=== PATIENT | female | born 1995 | race Caucasian/White ===

== ENCOUNTER → 2017-06-22 12:31 | Outpatient (CLI) | payer OTHER, MEDICAID, SELFPAY ==
[2017-06-22 13:35] LABS: Absolute Lymphocyte Count 1.78 X10^3/ul (0.83-4.51); Absolute Neutrophil Count 7.5 X10^3/uL (2.0-7.7); Basophil# 0.04 X10^3/uL; Basophil% 0.4 % (0-1); Eosinophil# 0.13 X10^3/uL; Eosinophils% 1.3 % (0-5); Hematocrit 37.9 % (37-47); Hemoglobin 12.8 g/dl (12.0-15.0); Lymphocyte # 1.78 X10^3/ul (4.0); Lymphocyte % 17.3 % (19-41); Mean Corp Hgb Conc 33.8 g/gl (32-36); Mean Corpuscular Hgb 29.5 pg (27.0-32.0); Mean Corpuscular Volume 87.3 fL (81-99); Mean Platelet Vol. 9.9 fl (6.2-12.0); Monocyte# 0.79 X10^3/uL; Monocyte% 7.7 % (0-10); Neutrophil % 73.1 % (47-70); POSITIVE COUNT NO; POSITIVE DIFFERENTIAL NO; POSITIVE MORPHOLOGY NO; Platelet Count 246 K/mm3 (150-450); RBC Distribution Width CV 12.8 % (11.6-14.6); RBC Distribution Width SD 40.1 fl (35.1-43.9); Red Blood Count 4.34 M/mm3 (4.2-5.4); White Blood Count 10.3 K/mm3 (4.4-11.0)
[2017-06-23 09:47] LABS: HIV - WCH Non-Reactive (Nonreactive); Rubella IgG 24.4 IU/mL
[2017-06-23 11:06] LABS: HEPATITIS B SURFACE AG Negative (Negative)
[2017-06-25 01:09] LABS: Rapid Plasmin Reagin (RPR) NONREACTIVE (NONREACTIVE)
== END ==
PROVIDERS: Family Provider Family Medicine; PCP Family Medicine; Visit Provider Obstetrics & Gynecology
DX: Z34.90 Encounter for supervision of normal pregnancy, unspecified, unspecified trimester (principal); Z3A.00 Weeks of gestation of pregnancy not specified
CPT/HCPCS: 36415; 85025; 86592; 86703; 86762; 86850; 86900; 87070; 87205; 87340

== ENCOUNTER → 2017-07-28 14:23 | Outpatient (CLI) | payer OTHER, MEDICAID, SELFPAY | PROVIDERS: Visit Provider Obstetrics & Gynecology | DX: Z34.90 Encounter for supervision of normal pregnancy, unspecified, unspecified trimester (principal) | CPT/HCPCS: 87086; 87088 ==

== ENCOUNTER → 2017-08-26 12:19 | Outpatient (CLI) | payer OTHER, MEDICAID, SELFPAY ==
--- NOTE | 2017-08-26 12:21 | US_ITS ---
STUDY: SECOND AND THIRD TRIMESTER OBSTETRICAL ULTRASOUND REASON FOR EXAM: Female, 22 years old. Evaluate anatomy. LMP: Unknown. Patient provides estimated due date January 15, 2018. TECHNIQUE: Transabdominal PRIOR ULTRASOUND: None. FINDINGS: There is a single intrauterine fetus. The fetus is in a cephalic presentation. There is demonstrated cardiac activity with a heart rate of 149 bpm. There is a normal amniotic fluid volume. The largest amniotic fluid pocket measures 10.7 x 6.3 cm. The placenta is anterior in location and is not low lying. There are Grade 0 placental changes. The cervix measures 4.3 cm in length, and is closed. The bilateral adnexal regions are normal. BIOMETRY: BPD: 5.0 cm: 21 weeks, 1 days HC: 18.18 cm: 20 weeks, 5 days AC: 15.6 cm: 20 weeks, 6 days FL: 3.1 cm: 19 weeks, 5 days CI: 81% FL/BPD: 62% FL/AC: 20% HC/AC: 1.17 age by current US: 20 weeks, 5 days. SUJIT by current US: January 08, 2018. Estimated weight: 345 grams, +/- 50 grams, 79 %. Age by given SUJIT: 19 weeks, 5 days. Given SUJIT: January 15, 2018. ANATOMY: Cranium: Normal lateral ventricles. Normal choroid plexus. Normal cerebellum. Normal cisterna magna. Normal face, nose and lips. Chest: Normal 4-chamber heart. Abdomen/Pelvis: Normal diaphragm. Normal stomach. Normal abdominal wall. Normal cord insertion. Normal 3 vessel cord. Normal kidneys. Normal bladder. Spine: Normal cervical spine. Normal thoracic spine. Normal lumbar spine. Normal sacrum. Extremities: Normal bilateral upper extremities. Normal bilateral lower extremities. US/OB Anatomy Scan IMPRESSION: 1. Single living intrauterine fetus in cephalic presentation and estimated gestational age of 20 weeks, 5 days. Estimated date of delivery by today's study is January 08, 2018. 2. Unremarkable anatomic survey. 3. Estimated weight is 345 g. 4. The cervix is closed. Cervical length is 4.3 cm. 5. Grade 0 anterior placenta is not low-lying. 6. Visually unremarkable amniotic fluid volume. Electronically Signed: Franco Whelan MD at 12:38 EDT , Service support ,
== END ==
PROVIDERS: Visit Provider Obstetrics & Gynecology
DX: Z36.9 Encounter for antenatal screening, unspecified (principal)
CPT/HCPCS: 76805

== ENCOUNTER → 2017-10-19 16:03 | Outpatient (CLI) | payer MEDICAID, SELFPAY ==
[2017-10-19 17:26] LABS: Absolute Lymphocyte Count 1.64 X10^3/ul (0.83-4.51); Absolute Neutrophil Count 10.2 X10^3/uL (2.0-7.7); Basophil# 0.02 X10^3/uL; Basophil% 0.2 % (0-1); Eosinophil# 0.14 X10^3/uL; Eosinophils% 1.1 % (0-5); Hematocrit 32.4 % (37-47); Hemoglobin 10.6 g/dl (12.0-15.0); Lymphocyte # 1.64 X10^3/ul (4.0); Lymphocyte % 12.9 % (19-41); Mean Corp Hgb Conc 32.7 g/gl (32-36); Mean Corpuscular Hgb 28.7 pg (27.0-32.0); Mean Corpuscular Volume 87.8 fL (81-99); Mean Platelet Vol. 9.2 fl (6.2-12.0); Monocyte# 0.63 X10^3/uL; Neutrophil # 10.17 X10^3/uL (2.7-7.7); Neutrophil % 79.9 % (47-70); Platelet Count 224 K/mm3 (150-450); RBC Distribution Width CV 13.8 % (11.6-14.6); RBC Distribution Width SD 44.6 fl (35.1-43.9); Red Blood Count 3.69 M/mm3 (4.2-5.4); White Blood Count 12.7 K/mm3 (4.4-11.0)
[2017-10-19 17:30] LABS: POSITIVE COUNT NO; POSITIVE DIFFERENTIAL NO; POSITIVE MORPHOLOGY NO
[2017-10-19 17:35] LABS: Glucose Challenge Gest 1H 50g 141 mg/dL (70-140)
== END ==
PROVIDERS: Family Provider Family Medicine; PCP Family Medicine; Visit Provider Obstetrics & Gynecology
DX: Z34.90 Encounter for supervision of normal pregnancy, unspecified, unspecified trimester (principal); Z3A.00 Weeks of gestation of pregnancy not specified
CPT/HCPCS: 36415; 82950; 85025; 86850; 86900

== ENCOUNTER → 2017-10-27 07:41 | Outpatient (CLI) | payer MEDICAID, SELFPAY ==
[2017-10-27 08:39] LABS: Glucose GTT-Gestation. Fasting 74 mg/dL (<105)
[2017-10-27 09:55] LABS: Glucose GTT-Gestational 1 Hr 158 mg/dL (<190)
[2017-10-27 10:28] LABS: Glucose GTT-Gestational 2 Hr 109 mg/dL (<165)
[2017-10-27 11:19] LABS: Glucose GTT-Gestational 3 Hr 166 L (<145)
== END ==
PROVIDERS: Family Provider Family Medicine; PCP Family Medicine; Visit Provider Obstetrics & Gynecology
DX: R73.02 Impaired glucose tolerance (oral) (principal)
CPT/HCPCS: 36415; 82951; 82952

== ENCOUNTER 2017-11-25 14:30 | Outpatient (CLI) | payer MEDICAID, SELFPAY ==
[2017-11-25 14:48] VITALS: BMI 28.3
[2017-11-25 16:19] LABS: Hematocrit 34.7 % (37-47); Hemoglobin 11.3 g/dl (12.0-15.0); Mean Corp Hgb Conc 32.6 g/gl (32-36); Mean Corpuscular Hgb 28.1 pg (27.0-32.0); Mean Corpuscular Volume 86.3 fL (81-99); Mean Platelet Vol. 9.8 fl (6.2-12.0); Platelet Count 204 K/mm3 (150-450); RBC Distribution Width CV 13.5 % (11.6-14.6); RBC Distribution Width SD 41.4 fl (35.1-43.9); Red Blood Count 4.02 M/mm3 (4.2-5.4); White Blood Count 12.5 K/mm3 (4.4-11.0)
[2017-11-25 16:20] LABS: Scan Indicated on CBC? Y/N NO
[2017-11-25 16:25] LABS: International Normalized Ratio 0.9; Prothrombin Time (Protime)PT. 12.6 SECONDS (11.7-14.9)
[2017-11-25 16:26] LABS: Partial Thromboplast Time 25.1 Seconds (24.1-36.2)
[2017-11-25 16:33] LABS: AST(SGOT) 21 U/L (15-37); Alanine Aminotransfer ALT/SGPT 15 U/L (13-56); Creatinine, Serum 0.43 mg/dL (0.55-1.02); EST Glomerular Filtration Rate 195 mL/min (>60); Est Glom Filt Rate - Afr Amer 236 mL/min (>60); Estimated Creatinine Clearance 178.71 ml/min; Uric Acid 3.4 mg/dL (2.6-6.0)
[2017-11-25 16:56] LABS: Protein, Urine (Random) < 6.0 mg/dL (<11.9)
--- NOTE | 2017-11-26 05:48 | OB.TRI.NOTE ---
- Problem List (1) Headache Status: Acute (2) Elevated BP without diagnosis of hypertension Status: Acute History of Present Illness Date of Service: 11/25/17 Was patient seen by the physician?: No Reason For Visit: RO PRE ECLAMPSIA Date of Service: 11/25/17 Final SUJIT: 01/15/18 Gestational age: 32 Weeks and 6 Days History of Present Illness: elevated bp at home with headache presents for evaluation. Allergies No Known Allergies Allergy (Verified 11/17/17 15:35) - Pertinent Past Medical History Medical History: Past Medical History (Last Reviewed 11/17/17 @ 15:35 by Mila Chaidez) Abnormal Pap smear of cervix NST - FHR Rate Baby A Baseline: 140 Variability:: Moderate Accelerations:: 15 x 15 Decelerations:: None NST Reactive:: Yes FHR Category:: Category I Uterine Activity:: no regular Impression/Plan elevated bp at home but normal on l and d, normal labs and headache resolving. dc home preeclampsia precautions
== END 2017-11-25 17:30 | disposition home or self-care (01) ==
LOC: WPOUT 14:41 → WP 14:42
PROVIDERS: Family Provider Family Medicine; PCP Family Medicine; Visit Provider Obstetrics & Gynecology
DX: O26.893 Other specified pregnancy related conditions, third trimester (principal); R03.0 Elevated blood-pressure reading, without diagnosis of hypertension; R51 Headache
CPT/HCPCS: 36415; 59025; 59050; 82565; 82570; 84156; 84450; 84460; 84550; 85027; 85610; 85730; 99218; A4216; G0378

== ENCOUNTER → 2017-12-22 18:26 | Outpatient (CLI) | payer MEDICAID, SELFPAY ==
[2017-12-22 19:49] LABS: Group B Strep DNA By PCR Negative (Negative); Internal Control PASS; Probe Check PASS; Specimen Processing Control PASS
== END ==
PROVIDERS: Family Provider Family Medicine; PCP Family Medicine; Visit Provider Obstetrics & Gynecology
DX: Z34.90 Encounter for supervision of normal pregnancy, unspecified, unspecified trimester (principal)
CPT/HCPCS: 87081; 87653

== ENCOUNTER → 2017-12-30 18:14 | Outpatient (CLI) | payer MEDICAID, SELFPAY ==
[2017-12-30 18:43] LABS: Protein, Urine (Random) 141.5 mg/dL (<11.9); Protein:Creat Ratio 687 mg/g CRE (0-200)
== END ==
PROVIDERS: Visit Provider Obstetrics & Gynecology
DX: R80.9 Proteinuria, unspecified (principal)
CPT/HCPCS: 82570; 84156

== ENCOUNTER 2017-12-31 13:45 | Inpatient (IN) | payer MEDICAID, SELFPAY ==
[2017-12-31 12:57] VITALS: BMI 30.6
[2017-12-31 13:24] LABS: Color, Urine Yellow (Yellow); Glucose, Dipstick Normal (Normal); Ketone-Dipstick Negative (Negative); Leukocyte Esterase-Dipstick 100 /ul (Negative); Nitrite-Dipstick Negative (Negative); Occult Blood-Urine 10 /ul (Negative); Protein-Dipstick 100 mg/dl (Negative); Urine Bilirubin Dipstick Negative (Negative); Urine Clarity Sl. Cloudy (Clear); Urine Urobilinogen Normal (Normal); Urine pH 6.5 (5.0 - 8.0)
[2017-12-31 13:25] LABS: Hematocrit 33.9 % (37-47); Hemoglobin 10.9 g/dl (12.0-15.0); Mean Corp Hgb Conc 32.2 g/gl (32-36); Mean Corpuscular Hgb 26.7 pg (27.0-32.0); Mean Corpuscular Volume 83.1 fL (81-99); Mean Platelet Vol. 10.5 fl (6.2-12.0); Platelet Count 210 K/mm3 (150-450); RBC Distribution Width CV 14.4 % (11.6-14.6); RBC Distribution Width SD 43.5 fl (35.1-43.9); Red Blood Count 4.08 M/mm3 (4.2-5.4); White Blood Count 10.3 K/mm3 (4.4-11.0)
[2017-12-31 13:29] LABS: Scan Indicated on CBC? Y/N NO
[2017-12-31 13:32] LABS: International Normalized Ratio 0.9; Prothrombin Time (Protime)PT. 12.1 SECONDS (11.7-14.9)
[2017-12-31 13:42] LABS: AST(SGOT) 17 U/L (15-37); Alanine Aminotransfer ALT/SGPT 17 U/L (13-56); Creatinine, Serum 0.57 mg/dL (0.55-1.02); EST Glomerular Filtration Rate 140 mL/min (>60); Est Glom Filt Rate - Afr Amer 170 mL/min (>60); Estimated Creatinine Clearance 134.82 ml/min; Uric Acid 4.8 mg/dL (2.6-6.0)
[2017-12-31] MEDS: Lactated Ringers 1,000 ML 50 ML IV (14:30)
[2017-12-31] MEDS: 0.9% Saline Lock 10 ML Syringe IV (14:31)
[2017-12-31] MEDS: miSOPROStol 25 MCG TABLET PO ×3 (14:35→23:36)
[2017-12-31] MEDS: Acetaminophen 325 MG Tablet PO (23:36)
[2018-01-01] MEDS: miSOPROStol 25 MCG TABLET PO ×3 (03:13→11:38)
[2018-01-01] MEDS: Acetaminophen 325 MG Tablet PO (05:01)
[2018-01-01] MEDS: Lactated Ringers 1,000 ML 50 ML IV ×2 (09:34→19:40)
[2018-01-01] MEDS: Oxytocin 30 units/NS 500 ml 30 UNITS/500 ML IV.SOLN IV (15:46)
--- NOTE | 2018-01-01 20:38 | HP.PCM_ITS ---
- Problem List (1) Preeclampsia Status: Acute (2) Status: Acute Qualifiers: (3) Anemia affecting in second trimester Status: Acute Comment: Repeat 4 weeks-taking FE (4) Abnormal glucose tolerance in Status: Acute Comment: Normal 3 hr GTT (5) Anxiety Status: Acute Comment: no meds at present. (6) Supervision of normal Status: Acute Qualifiers: Comment: PRR SUJIT 01/15/18 boy Reid boyfriend Syd History Date of Admission: 12/31/17 Final SUJIT: 01/15/18 Gestational age: 38 Weeks and 0 Days History of this : This is a 22 year-old, , at 37 weeks gestational age for IOL secondary to preeclampsia. she denies any GARNER BV but admits elevated bps and proteinuria. Medical History: Medical History (Last Reviewed 12/30/17 @ 14:04 by Sharmin Del Real) Abnormal Pap smear of cervix R87.619 Allergies No Known Allergies Allergy (Verified 12/31/17 12:56) Home Medications: Home Medications vitamin,calcium,qzcbfpuu-stum-gzsjb acid tablet 1 tab PO QDAY 06/22/17 Smoking Status: Never smoker Alcohol: None Number of Fetus(es): 1 Heart Tracin moderate variability reactive no decels TOCO Analysis: none History Past Pregnancies: Past Pregnancies Delivery Date Name GA/Weeks Outcome Route Weight Infant Gender Labor Length Anesthesia Delivery Location Provider FOB Labs: [facility] Microbiology 12/31/17 13:05 Urine, Clean Catch Urine Culture - Preliminary Mixed Gram Positive Organisms [facility] Labs & Results 12/31/17 12/31/17 12/31/17 13:05 13:05 13:05 WBC 10.3 RBC 4.08 L Hgb 10.9 L Hct 33.9 L MCV 83.1 MCH 26.7 L MCHC 32.2 RDW 14.4 RDW Differential 43.5 Plt Count 210 MPV 10.5 PT 12.1 INR 0.9 APTT 24.0 L Creatinine 0.57 Estim Creat Clear Calc 134.82 Est GFR (MDRD) Af Amer 170 Est GFR (MDRD) Non-Af 140 Uric Acid 4.8 AST 17 ALT 17 Urine Color Urine Clarity Urine pH Ur Specific Dulce Urine Protein Urine Glucose (UA) Urine Ketones Urine Occult Blood Urine Nitrite Urine Bilirubin Urine Urobilinogen Ur Leukocyte Esterase Blood Type Antibody Screen 12/31/17 12/31/17 13:05 13:05 WBC RBC Hgb Hct MCV MCH MCHC RDW RDW Differential Plt Count MPV PT INR APTT Creatinine Estim Creat Clear Calc Est GFR (MDRD) Af Amer Est GFR (MDRD) Non-Af Uric Acid AST ALT Urine Color Yellow Urine Clarity Sl. Cloudy Urine pH 6.5 Ur Specific Dulce 1.010 Urine Protein 100 H Urine Glucose (UA) Normal Urine Ketones Negative Urine Occult Blood 10 H Urine Nitrite Negative Urine Bilirubin Negative Urine Urobilinogen Normal Ur Leukocyte Esterase 100 H Blood Type A POSITIVE Antibody Screen NEGATIVE Course Did the patient receive Yes care? Labs Blood Type: A RH: POSITIVE RPR/VDRL/Syphilis Nonreactive Rubella status Immune HbSAg Negative Date Done: 06/22/17 Chlamydia Negative Gonorrhea Negative HIV/AIDS Non-Reactive Group B Strep: Negative Current Obstetrical History Gestational Diabetes No Incompetent Cervix No Infertility No IUGR No Macrosomia No Hypertension/Pre-eclampsia Yes Placenta Previa/Abruption No PTL/PROM No Uterine anomaly No Oligohydramnios No Polyhydramnios No Multiple gestation No Past Medical History Asthma No Diabetes No Hypertension No Heart disease No Mitral valve prolapse No Neurologic/Seizure disorder/ No Migraines Kidney disease No Liver disease No Varicosities No Clotting disorders/Hx of DVT No Thyroid Dysfunction No Other medical diseases No Psychiatric disorders No Major trauma No Abnormal PAP smear Yes Sleep apnea No Mammogram in the last 2 years No Social History Marital Status: SINGLE Alleged father Syd Hx Smoking No Smoking Status Never smoker Expected Delivery Method: Spontaneous Vaginal Review of Systems Constitutional: Denies: Fever, Malaise Eyes: Denies: Blurred vision, Vision Change HEENT: Denies: Head Aches, Visual Changes Cardiovascular: Denies: Chest Pain, Palpitations Respiratory: Denies: Cough, Shortness of Breath, Wheezing Gastrointestinal: Denies: Abdominal Pain, Diarrhea, Nausea, Vomiting Genitourinary: Denies: Dysuria, Hematuria Musculoskeletal: Denies: Joint Pain, Muscle pain Skin: Denies: Lesions, Rash Neurological: Denies: Blurred vision, Focal weakness, Headaches Psychiatric: Denies: Anxiety, Depression Endocrine: Denies: Heat/ Cold Intolerance Hematologic/ Lymphatic: Denies: Easy Bruising, Easy Bleeding Physical Exam General: Alert, Cooperative, No apparent distress HEENT: Atraumatic, Normocephalic. Negative for: Thyromegaly, Lymphadenopathy Cardiovascular: Regular rate Lungs: Normal air movement Abdomen: Soft, Non Tender, Gravid Neurological: Deep Tendon Reflexes 2+/4 and Symmetrical, Neuro grossly intact. Negative for: Clonus [employer]ER: Normal external genitalia. Negative for: Vulvar lesions Estimated gestational size: Appropriate for gestational size Presentation: Cephalic Assessment/Plan All Active Problems (Last Reviewed 12/30/17 @ 14:04 by Sharmin Del Real) Preeclampsia (Acute) Proteinuria affecting (Acute) (Acute) Anemia affecting in second trimester (Acute) Abnormal glucose tolerance in (Acute) Anxiety (Acute) Supervision of normal (Acute) Elevated BP without diagnosis of hypertension (Resolved) Headache (Resolved) This is a 22 year-old, at 37 weeks gestational age IOL preeclampsia Patient presents IOL, plan cytotec management for , pitocin. Pain management: plans epidural. GBS neg. Management of any complications: preeclampsia I have reviewed the [facility] and made any clinically relevant updates.
--- NOTE | 2018-01-01 20:38 | PCM.PN.BLA ---
Progress Note fht 140s moderate variability reactive early decels toco q 2-3. pit IOL s/p 6 doses cytotec, srom clear fluid. bps mildly elevated. s/p epi
[2018-01-01] MEDS: hydrOXYzine PAM 25 MG Capsule 50 MG PO (21:19)
[2018-01-01] MEDS: fentaNYL-bupivacaine (epidural) 100 ML BAG EPIDURAL (21:47)
[2018-01-02] MEDS: Lactated Ringers 1,000 ML 50 ML IV ×2 (00:21→05:24)
--- NOTE | 2018-01-02 06:00 | NURSING ---
Patient had three epidural placed at different times due to inability to get comfortable. Patient c/o vaginal /rectal pain and pressure. Final epidural placed was effective with pain control
[2018-01-02] MEDS: Oxytocin 30 units/NS 500 ml 30 UNITS/500 ML IV.SOLN 334 UNITS IV (07:56)
[2018-01-02] MEDS: Acetaminophen 325 MG Tablet PO (08:31)
[2018-01-02] MEDS: Oxytocin 30 units/NS 500 ml 30 UNITS/500 ML IV.SOLN 167 UNITS IV (08:36)
--- NOTE | 2018-01-02 08:53 | PCM.OB.VAG ---
- Problem List (1) Preeclampsia Status: Acute (2) Status: Acute Qualifiers: (3) Anemia affecting in second trimester Status: Acute Comment: Repeat 4 weeks-taking FE (4) Abnormal glucose tolerance in Status: Acute Comment: Normal 3 hr GTT (5) Anxiety Status: Acute Comment: no meds at present. (6) Supervision of normal Status: Acute Qualifiers: Comment: PRR SUJIT 01/15/18 boy Reid boyfriend Syd Vaginal Delivery Maternal Presentation: Medically Indicated Induction 22-year-old at 38 weeks presents for induction of labor secondary to preeclampsia with mild features Method of Induction: Pitocin, Cytotec Medical Reason for Induction: Preeclampsia, eclampsia Amniotic Membrane Rupture Type: Spontaneous Amniotic Fluid Description: Clear Final SUJIT: 01/15/18 Gestational age: 38 Weeks and 1 Days Surgery/ Procedure Performed: Spontaneous Vaginal Delivery Type of Anesthesia: Epidural Description of Procedure: Patient began pushing and delivered the head in the LIONEL presentation. The head was delivered atraumatically loose nuchal cord ?1 was identified and easily reduced over the 's head. The anterior and posterior shoulders delivered without complication followed by the rest of the infant and the was placed on the maternal abdomen. Delayed cord clamping was employed for approximately 60 seconds. Cord was clamped and cut and gentle traction was applied to the cord and the placenta delivered spontaneously immediately following it was noted to be intact with three-vessel cord. The perineum and vagina were inspected and noted to have a small second-degree perineal laceration that was repaired in the usual fashion with 3-0 Vicryl repeat. EBL was 600 cc with mild atony that was remedied with bimanual massage and routine Pitocin. Patient and tolerated delivery well. Presentation: LIONEL Placental Delivery Description: Spontaneous Placenta Disposition: [facility] Cord Vessel Description: 3 Vessels Cord Entanglement: Around neck x 1, loose Estimated Blood Loss: 600 Infant A gender: Male Episiotomy Description: None Laceration: Perineal Extension/lac, 2nd degree Medications given after delivery: IV Pitocin Complications: None
[2018-01-02] MEDS: Naproxen 250 MG Tablet PO ×2 (09:33→18:40)
[2018-01-02 09:43] VITALS: BP 132/77; PULSE 105; RESP 18; TEMP 36.8
[2018-01-02 12:52] VITALS: BP 107/56; PULSE 92; RESP 16; TEMP 36.7
[2018-01-02] MEDS: Prenatal Vits Tablet 1 TABLET PO (13:00)
[2018-01-02] MEDS: Acetaminophen 500 MG Tablet 1000 MG PO ×2 (15:05→23:34)
[2018-01-02 16:14] VITALS: BP 125/72; PULSE 99; RESP 16; TEMP 36.8
[2018-01-02 19:40] VITALS: BP 130/86; PULSE 92; RESP 18; TEMP 36.9
[2018-01-02 23:30] VITALS: BP 98/50; PULSE 100; RESP 16; TEMP 36.7
[2018-01-03] MEDS: Naproxen 250 MG Tablet PO ×3 (02:31→18:37)
[2018-01-03 07:49] VITALS: BP 126/70; PULSE 97; RESP 16; TEMP 36.7; O2SAT 97
[2018-01-03] MEDS: Acetaminophen 500 MG Tablet 1000 MG PO ×2 (07:49→20:29)
--- NOTE | 2018-01-03 07:57 | PCM.PN.OB ---
Patient Problems: Active and Suspected Problems (Last Reviewed 12/30/17 @ 14:04 by Sharmin Del Real) Preeclampsia (Acute) Subjective: No CP, SOB. Doing well. BP currently WNL last 12 hrs. - Physical Exam General: Alert, Oriented x3 Abdomen: Soft, Non Tender, - - FF below U Vital Signs Temp Pulse Resp BP 98.1 F 100 16 98/50 L 01/02/18 23:30 01/02/18 23:30 01/02/18 23:30 01/02/18 23:30 Oxygen Delivery Method Room Air Weight: 178 lb 5.663 oz Body Mass Index (BMI) 30.6 Intake and Output for Last 24 Hours 01/01/18 01/02/18 01/03/18 23:59 23:59 23:59 Intake Total 900 / 900 1140 / 1140 Output Total 200 / 200 2500 / 2500 Balance 700 / 700 -1360 / -1360 Microbiology Past 72 Hours 12/31/17 13:05 Urine Culture - Final Urine, Clean Catch Mixed Gram Positive Organisms Medical Necessity - Tobacco Use Smoking Status: Never smoker Assessment/Plan All Active Problems (Last Reviewed 12/30/17 @ 14:04 by Sharmin Del Real) Preeclampsia (Acute) Proteinuria affecting (Acute) (Acute) Anemia affecting in second trimester (Acute) Abnormal glucose tolerance in (Acute) Anxiety (Acute) Supervision of normal (Acute) Elevated BP without diagnosis of hypertension (Resolved) Headache (Resolved) PPD #1 BPs well controlled. Routine care. Continue monitor BP and treat as needed. .
[2018-01-03] MEDS: Prenatal Vits Tablet 1 TABLET PO (08:48)
--- NOTE | 2018-01-03 13:13 | NURSING ---
Pt. called out to RN to report she feels like she has incontinence when she gets into the restroom. This morning pt. was advised to do Kegel exercises. Rosa Brewer CNP, is aware of this concern and told pt. to report if it continues.
[2018-01-03 13:40] VITALS: BP 118/74; PULSE 78; RESP 17; TEMP 36.8; O2SAT 95
[2018-01-03 20:20] VITALS: BP 125/85; PULSE 82; RESP 16; TEMP 36.6; O2SAT 98
[2018-01-04 02:40] VITALS: BP 133/72; PULSE 86; RESP 16; TEMP 37.2; O2SAT 95
[2018-01-04] MEDS: Naproxen 250 MG Tablet PO (02:45)
--- NOTE | 2018-01-04 07:44 | PCM.PN.OB ---
Patient Problems: Active and Suspected Problems (Last Reviewed 12/30/17 @ 14:04 by Sharmin Del Real) Preeclampsia (Acute) Subjective: NO CP, SOB. doing well. Requesting stool softener. Pain controlled with OTC meds - Physical Exam General: Alert, Oriented x3 Abdomen: Soft, Non Tender, - - FF below U Vital Signs Temp Pulse Resp BP Pulse Ox 98.9 F 86 16 133/72 H 95 01/04/18 02:40 01/04/18 02:40 01/04/18 02:40 01/04/18 02:40 01/04/18 02:40 Oxygen Delivery Method Room Air Weight: 178 lb 5.663 oz Body Mass Index (BMI) 30.6 Intake and Output for Last 24 Hours 01/02/18 01/03/18 01/04/18 23:59 23:59 23:59 Intake Total 1140 / 1140 Output Total 2500 / 2500 Balance -1360 / -1360 Microbiology Past 72 Hours 12/31/17 13:05 Urine Culture - Final Urine, Clean Catch Mixed Gram Positive Organisms Medical Necessity - Tobacco Use Smoking Status: Never smoker Assessment/Plan All Active Problems (Last Reviewed 12/30/17 @ 14:04 by Sharmin Del Real) Preeclampsia (Acute) Proteinuria affecting (Acute) (Acute) Anemia affecting in second trimester (Acute) Abnormal glucose tolerance in (Acute) Anxiety (Acute) Supervision of normal (Acute) Elevated BP without diagnosis of hypertension (Resolved) Headache (Resolved) PPD #2 BPs controlled. OTC pain med and stool softener prn. Plans condoms for contraception. PP visit 6 weeks
--- NOTE | 2018-01-04 07:47 | DCINST_ITS ---
Additional Instructions: If you experience any of the following, contact your healthcare provider. * Bleeding that soaks a pad every hour for 2 hours * Fever 100.4 or higher * Unrelieved incision or abdominal pain * Swelling, redness, discharge or bleeding from your incision or episiotomy site * Your incision begins to separate * Problems urinating (including inability to urinate or burning while urinating) . * Visual changes * Severe headache * Flu-like symptoms * Pain or redness in one of both of your breasts * Pain, warmth, tenderness or swelling in your legs, especially the calf area * Frequent nausea and vomiting * Symptoms of depression or anxiety If you experience any of the following, call 911 or go to the nearest Emergency Room. * Chest pain * Problems breathing * Seizure activity * Partial or complete paralysis of a body part, slurred speech, weakness or drooping of the face, or a sudden inability to walk or hold your balance Allergies/Adverse Reactions: Allergies No Known Allergies Allergy (Verified 12/31/17 12:56) Medications to take at Discharge vitamin,calcium,likhiads-jiax-lflmp acid tablet 1 tab PO QDAY 06/22/17 Primary Care Physician: Lindsey Drake PA-C [Primary Care Provider] - Test Results: Test results from this visit will be discussed in further detail at your follow- up appointment, if applicable.
--- NOTE | 2018-01-04 07:47 | PCM.DCVAG ---
Additional Instructions: If you experience any of the following, contact your healthcare provider. Bleeding that soaks a pad every hour for 2 hours Fever 100.4 or higher Unrelieved incision or abdominal pain Swelling, redness, discharge or bleeding from your incision or episiotomy site Your incision begins to separate Problems urinating (including inability to urinate or burning while urinating). Visual changes Severe headache Flu-like symptoms Pain or redness in one of both of your breasts Pain, warmth, tenderness or swelling in your legs, especially the calf area Frequent nausea and vomiting Symptoms of depression or anxiety If you experience any of the following, call 911 or go to the nearest Emergency Room. Chest pain Problems breathing Seizure activity Partial or complete paralysis of a body part, slurred speech, weakness or drooping of the face, or a sudden inability to walk or hold your balance Allergies/Adverse Reactions: Allergies No Known Allergies Allergy (Verified 12/31/17 12:56) Medications to take at Discharge vitamin,calcium,qtrgkfll-soom-yqbos acid tablet 1 tab PO QDAY 06/22/17 Primary Care Physician: Lindsey Drake PA-C [Primary Care Provider] - Test Results: Test results from this visit will be discussed in further detail at your follow-up appointment, if applicable.
[2018-01-04 08:45] VITALS: BP 135/79; PULSE 88; RESP 16; TEMP 36.9
[2018-01-04] MEDS: Senna/Docusate Sodium 1 Tablet PO (08:59)
[2018-01-04] MEDS: Prenatal Vits Tablet 1 TABLET PO (08:59)
[2018-01-04] MEDS: Acetaminophen 500 MG Tablet 1000 MG PO (09:06)
== END 2018-01-04 09:50 | disposition home or self-care (01) | DRG 372 ==
LOC: WPOUT 13:50 → WP 13:52
PROVIDERS: Admitting Provider Obstetrics & Gynecology; Family Provider Family Medicine; PCP Family Medicine; Visit Provider Obstetrics & Gynecology
DX: O14.04 Mild to moderate pre-eclampsia, complicating childbirth (principal); O99.02 Anemia complicating childbirth; O70.1 Second degree perineal laceration during delivery; O75.89 Other specified complications of labor and delivery; O69.81X0 Labor and delivery complicated by cord around neck, without compression, not applicable or unspecified; Z3A.38 38 weeks gestation of pregnancy; Z37.0 Single live birth
CPT/HCPCS: 59025; 59050; 81002; 82565; 84450; 84460; 84550; 85027; 85610; 85730; 86850; 86900; 87086; 87088; 99218; J7120; A4216; G0378

== ENCOUNTER → 2018-02-14 20:28 | Outpatient (CLI) | payer MEDICAID, SELFPAY ==
[2018-02-21 13:41] LABS: HPV Reflexed? NOT INDICATED
== END ==
PROVIDERS: Family Provider Family Medicine; PCP Family Medicine; Referring Provider Obstetrics & Gynecology; Visit Provider Obstetrics & Gynecology
DX: Z12.4 Encounter for screening for malignant neoplasm of cervix (principal)
CPT/HCPCS: 87624; 88175; G0145

== ENCOUNTER → 2018-07-26 12:12 | Outpatient (CLI) | payer MEDICAID, SELFPAY ==
[2018-04-08 11:00] VITALS: BMI 24.6
--- NOTE | 2018-07-26 12:16 | US_ITS ---
STUDY: ULTRASOUND BREAST - RIGHT REASON FOR EXAM: Female, 23 years old. Pain in the right breast. TECHNIQUE: Axial and longitudinal images of the RIGHT breast were performed with a high resolution ultrasound transducer. COMPARISON: None. FINDINGS: RIGHT Breast: The entire breast was examined by ultrasound. There is homogeneous fibroglandular tissue. No sonographic abnormality is seen. IMPRESSION: Unremarkable sonographic examination. ASSESSMENT CATEGORY: BIRADS Category 1: Negative. A letter regarding these results will be sent to the patient by the facility within 30 days. Electronically Signed: Nikko Harris, at 12:55 EDT , Service support , STUDY: ULTRASOUND BREAST - LEFT REASON FOR EXAM: Female, 23 years old. Palpable lump left breast. TECHNIQUE: Axial and longitudinal images of the LEFT breast were performed with a high resolution ultrasound transducer. COMPARISON: None. FINDINGS: LEFT Breast: The entire left breast was examined by ultrasound. There is homogeneous fibroglandular tissue. No sonographic abnormality is seen. US/Breast Complete Bilateral IMPRESSION: Unremarkable sonographic examination of the breast. ASSESSMENT CATEGORY: BIRADS Category 1: Negative. A letter regarding these results will be sent to the patient by the facility within 30 days. Electronically Signed: Nikko Harris, at 12:56 EDT , Service support ,
== END ==
PROVIDERS: Family Provider Family Medicine; PCP Family Medicine; Referring Provider Family Medicine; Visit Provider Family Medicine
DX: N63.0 Unspecified lump in unspecified breast (principal)
CPT/HCPCS: 76641

== ENCOUNTER → 2018-08-31 17:08 | Outpatient (CLI) | payer MEDICAID, SELFPAY ==
--- NOTE | 2018-08-31 | IMM_PTH ---
PATIENT: BEAU HAMILTON LOC: [facility] U#:[id number] AGE/SX: 30/F ROOM: RE08/31/[address]: Dr. Mirella Lamar MD : 1995 BED: DIS: SPEC #: [id number] RECD: 09/02/18 10:20 STATUS: ETIENNE REQ #: [id number] MARCY: 08/31/18 00:[address]: Mirella Lamar DEPT: IMMUNOHISTOCHEMISTRY RECD BY: Risa Winkler ENTERED: 09/02/18 10:21 SP TYPE: IMMUNO OTHR DR: Lindsey Drake PA-C Tissues: B - Uterine cervix, NOS Procedures: p16 (initial) KI-67 (add) PHYSICIAN & INSTITUTION [place] [id number] SPECIMEN INFORMATION: Tissue Source: B - Cervix at 6 o'clock, biopsy Clinical Info: HGSIL Specimen Number: [id number] CPT code: 32442, 04116 METHODOLOGY: Deparaffinized sections of prefer/formalin-fixed tissue or PAP/DQ stained slides are incubated with monoclonal/polyclonal antibodies/oligonucleotide probes. Localization is made via biotin free immunoperoxidase method. Appropriate controls are performed and reacted as expected. Results on target cell population are indicated in the following table: RESULTS: ANTIBODY / CLONE RESULT Block B P16 (E6H4) positive, rare cells Ki-67 (30-9) positive, rare cells These tests were developed and their performance characteristics determined by [facility]. They may not have been cleared or approved by the U.S. Food and Drug Administration. The FDA has determined that such clearance or approval is not necessary. INTERPRETATION: B. Cervix at 6 o'clock, biopsy: Suspicious for focal HPV change. AM:lito 09/05/18
--- NOTE | 2018-08-31 | CER_PTH ---
PATIENT: BEAU HAMILTON LOC: [facility]#:[id number] AGE/SX: 30/F ROOM: RE08/31/[address]: Dr. Mirella Lamar MD : 1995 BED: DIS: SPEC #: [id number] RECD: 08/31/18 17:08 STATUS: ETIENNE DARIO #: [id number] MARCY: 08/31/18 00:[address]: Mirella Lamar DEPT: SURGICAL PATHOLOGY RECD BY: Kaden Rogers ENTERED: 09/01/18 10:51 SP TYPE: CERV OTHR DR: Lindsey Drake PA-C Tissues: A - Endocervical B - Uterine cervix, NOS Procedures: Surgery Specimen Level IV HEADER OPERATION: Colposcopy PRE-OP DIAGNOSIS: HGSIL TISSUE SUBMITTED: A - ECC, B - 6 o'clock MICROSCOPIC DIAGNOSIS A. Endocervix, curettings: Rare strips of benign superficial endocervix. Detached fragments of benign squamous mucosa. B. Cervix at 6 o'clock, biopsy: Focal HPV change suspected. Chronic inflammation and squamous metaplasia. AM:lito 09/02/18 COMMENT Results from immunohistochemistry ([id number]) for surrogate HPV marker (p16) will be reported separately. MICROSCOPIC DESCRIPTION Slides are reviewed. GROSS DESCRIPTION A - Received in fixative is one container labeled with the patient's name and designated ECC. The specimen consists of light mayfield clear fluid (approximately 20 ml inclusive of fixative). The specimen is submitted for cell block preparation. B - Received in fixative is one container labeled with the patient's name and designated 6 o'clock. The specimen consists of one irregular fragment of light mayfield soft tissue that measures 0.3 x 0.2 x 0.1 cm. The specimen is totally submitted in one cassette. / AM:lito 09/01/18 TC:3 CPT: 53018 x2
[2018-08-31 14:41] VITALS: BMI 24.6
== END ==
PROVIDERS: Family Provider Family Medicine; PCP Family Medicine; Referring Provider Obstetrics & Gynecology; Visit Provider Obstetrics & Gynecology
DX: R87.613 High grade squamous intraepithelial lesion on cytologic smear of cervix (HGSIL) (principal)
CPT/HCPCS: 88305; 88341; 88342

== ENCOUNTER 2018-09-15 09:26 | Day surgery (SDC) | payer MEDICAID, SELFPAY ==
[2018-08-31 14:41] VITALS: BMI 24.6
--- NOTE | 2018-09-13 20:30 | HP.PCM_ITS ---
- Problem List (1) Anxiety Status: Acute Comment: zoloft (2) HGSIL (high grade squamous intraepithelial lesion) on Pap smear of cervix Status: Acute Comment: needs LEEP (3) Low grade squamous intraepithelial lesion (LGSIL) Status: Acute Comment: Needs repeat pap in 1 year 02/2019 History and Physical Date of Admission: 09/15/18 Vital Signs 08/31/18 Height 5 ft 3.5 in 08/31/18 Weight: 141 lb 6 oz 08/31/18 Body Mass Index (BMI) 24.6 08/31/18 Blood Pressure 136/86 H Intake Visit Reasons: COLP? - HIGH GRADE ABNORMAL FROM [employer] Required: No Is patient in pain?: No Allergies No Known Allergies Allergy (Verified 08/31/18 14:43) Is last menstrual period known: Yes Last Menstral Period: 08/21/18 Post menopausal: No Patient : No PFSH PFSH Medical History Abnormal Pap smear of cervix (Acute) Family History Sister Antiphospholipid antibody syndrome Mother Diabetes Other Hypertension Social History Smoking Status: Never smoker second hand exposure: No alcohol intake: never substance use type: does not use caffeine: No what type of physical activity do you participate in: walking frequency: daily seatbelt use: always do you feel safe at home: Yes additional social history: Engaged (getting in October)- Syd Pregancy History 1 Elective abortions Hx Para 1 Spontaneous abortions Hx # Term Pregnancies 1 Ectopic pregnancies Hx # Pregnancies Multiple births # of living children 1 Past Pregnancies Del. Date Name GA/Weeks Outcome Route Bth Weight Gen Labor Lgth Anesthesia Del Locatn Provider FOB 01/02/18 Reid 38 live - full term Male epidural WC [facility] Delivery Date: 01/02/18 On 01/12/18 @ 09:05 Layne Joseph PreEclampsia HPI COLP? - HIGH GRADE ABNORMAL FROM [employer] [facility]: Details: BEAU LARSON is a 23 year old who presents for HGSIL. she has had 2 lgsil paps. she denies any abnormal bleeding. she had her mirena removed and is getting in october and wanting to conceive in 6 months Female Reproductive History Last Menstral Period: 08/21/18 Control Method: condoms Questions: Metorrhagia: No, Sexually active: Yes ROS Const Constitutional: Reports system reviewed and no additional complaints, except as docu; denies chills, fever(s), weight gain or weight loss GI GI: Reports as per HPI; denies abdominal pain, bloating, constipation, cramping, nausea or vomiting : Reports as per HPI; denies urinary frequency, urinary incontinence, urinary urgency, vaginal discharge or vaginal dryness Exam Const General: cooperative, healthy appearing, comfortable, well developed Orientation: alert [facility] Head: normal to inspection Resp Effort & Inspection: normal respiratory effort GI Inspection: normal to inspection, non-distended Palpation: soft, no hepatosplenomegaly, no guarding External Female Exam: normal external appearance, normal appearance of the urethra Urethra: normal appearance of the urethra Speculum Exam - Vagina: normal appearance of the vagina, normal vaginal discharge, no lesions Speculum Exam - Cervix: nontender Bimanual Exam- Vagina & Uterus: normal bimanual exam, uterine size normal, uterine shape normal, No cervical tenderness, uterine mobility normal, uterine consistency normal, uterus non-tender Bimanual Exam- Adnexa, other: normal adnexae, no adnexal masses Results [id number] Office , Urine Negative Last Edit by Mila Chaidez on 08/31/18 15:09 Assessment & Plan Problems 1. 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 Mirella Lamar MD
--- NOTE | 2018-09-15 | IMM_PTH ---
PATIENT: BEAU HAMILTON LOC: [facility] [place] U#:[id number] AGE/SX: 23/F ROOM: RE09/15/[address]: Dr. Mirella Lamar MD : 1995 BED: DIS: 09/15/2018 SPEC #: [id number] RECD: 09/16/18 13:34 STATUS: ETIENNE REQ #: [id number] MARCY: 09/15/18 00:[address]: Mirella Lamar DEPT: IMMUNOHISTOCHEMISTRY RECD BY: Risa Winkler ENTERED: 09/16/18 13:36 SP TYPE: IMMUNO OTHR DR: Lindsey Drake PA-C Tissues: A - Uterine cervix, NOS Procedures: p16 (initial) KI-67 (add) P16 (add) PHYSICIAN & INSTITUTION [place] [id number] SPECIMEN INFORMATION: Tissue Source: A - Uterine cervix Clinical Info: CORY III with severe dysplasia Specimen Number: [id number] A1-A3 CPT code: 81462, 60415 x5 METHODOLOGY: Deparaffinized sections of prefer/formalin-fixed tissue or PAP/DQ stained slides are incubated with monoclonal/polyclonal antibodies/oligonucleotide probes. Localization is made via biotin free immunoperoxidase method. Appropriate controls are performed and reacted as expected. Results on target cell population are indicated in the following table: RESULTS: ANTIBODY / CLONE RESULT Block A1 P16 (E6H4) positive, focal, patchy Ki-67 (30-9) positive, low Block A2 P16 (E6H4) positive, focal, patchy Ki-67 (30-9) positive, low Block A3 P16 (E6H4) positive, focal, patchy Ki-67 (30-9) positive, low These tests were developed and their performance characteristics determined by [facility]. They may not have been cleared or approved by the U.S. Food and Drug Administration. The FDA has determined that such clearance or approval is not necessary. INTERPRETATION: A. Cervix, LEEP conization: Focal HPV change noted. AM:lito 09/19/18
[2018-09-15 09:46] VITALS: BP 125/84; PULSE 77; RESP 16; TEMP 37.3; O2SAT 100; BMI 23.6
[2018-09-15 09:51] LABS: Internal QC Validated? YES +Cl - CLEAR BKGD; Pregnancy, Urine Negative Negative
[2018-09-15 10:38] LABS: Hematocrit 37.8 % (37-47); Hemoglobin 12.5 g/dl (12.0-15.0); Mean Corp Hgb Conc 33.1 g/gl (32-36); Mean Corpuscular Hgb 27.2 pg (27.0-32.0); Mean Corpuscular Volume 82.4 fL (81-99); Mean Platelet Vol. 10.2 fl (6.2-12.0); Platelet Count 228 K/mm3 (150-450); RBC Distribution Width SD 41.5 fl (35.1-43.9); Red Blood Count 4.59 M/mm3 (4.2-5.4); Scan Indicated on CBC? Y/N NO; White Blood Count 6.9 K/mm3 (4.4-11.0)
--- NOTE | 2018-09-15 11:10 | CER_PTH ---
PATIENT: BEAU HAMILTON LOC: [facility] [place] U#:[id number] AGE/SX: 23/F ROOM: RE09/15/[address]: Dr. Mirella Lamar MD : 1995 BED: DIS: 09/15/2018 SPEC #: [id number] RECD: 09/15/18 13:42 STATUS: ETIENNE REEduardo #: [id number] MARCY: 09/15/18 11:[address]: Mirella Lamar DEPT: SURGICAL PATHOLOGY RECD BY: Kaden Rogers ENTERED: 09/15/18 14:31 SP TYPE: CERV OTHR DR: Lindsey Drake PA-C Tissues: A - Uterine cervix, NOS B - Endocervical Procedures: Surgery Specimen Level IV Surgery Specimen Level V HEADER OPERATION: LEEP cone PRE-OP DIAGNOSIS: CORY III with severe dysplasia TISSUE SUBMITTED: A - Cervix, B - Endocervical curettings MICROSCOPIC DIAGNOSIS A. Cervix, LEEP conization: Focal HPV change present. Nabothian cysts and chronic inflammation. Margins of excision with no evidence of dysplasia. See comment. B. Endocervix, curettings: Fragments of benign endocervix and lower uterine endometrium. No evidence of dysplasia. AM:lito 09/16/18 COMMENT A. Results from immunohistochemistry ([id number]) for surrogate HPV marker (p16) will be reported separately. Reference is made to the patient's cervical biopsy at 6 o'clock from 09/02/18 () in which focal HPV change was suspected. MICROSCOPIC DESCRIPTION Slides are reviewed. GROSS DESCRIPTION A - Received in fixative is one container labeled with the patient's name and designated cervix. The specimen consists of two irregular fragments of light pink-mayfield soft tissue ranging in size from 0.6 to 3.2 cm in greatest dimension. The larger fragment is inked, serially sectioned and submitted along with the smaller fragment in three cassettes. B - Received in fixative is one container labeled with the patient's name and designated endocervical curettings. The specimen consists of multiple irregular fragments of light mayfield soft tissue that in aggregate measure 0.6 x 0.5 x <0.1 cm. The specimen is totally submitted in one cassette. / AM:lito 09/15/18 TC:3 CPT: 13633, 44075
[2018-09-15] MEDS: FERRIC SUBSULFATE 8 GM SOLN (11:45)
--- NOTE | 2018-09-15 11:57 | OP.PCM_ITS ---
Problem List (1) Anxiety Status: Acute Comment: zoloft (2) HGSIL (high grade squamous intraepithelial lesion) on Pap smear of cervix Status: Acute Comment: needs LEEP (3) Low grade squamous intraepithelial lesion (LGSIL) Status: Acute Comment: Needs repeat pap in 1 year 02/2019 Report of Operation Date of Procedure: 09/15/18 Pre-Operative Diagnosis: YEHUDA III Post-Operative Diagnosis: same Surgery/Procedure Performed:: leep Description of Surgical Findings:: yehuda III Type of Anesthesia:: Local MAC Special Medications: monsels paste Specimen's removed: cervix ecc Drains: none Estimated Blood Loss (mL): 10 Fluids Replaced: crystalloid Description of Procedure: Patient was taken to the operating room and placed under MAC anesthesia prepped and draped in normal sterile fashion the dorsal lithotomy position. Paracervical block was placed with 1% lidocaine and using a loop electrode the outer part of the cervix was removed including the squamocolumnar junction. Endocervical curettings were taken and the base of the cervix was cauterized a round the borders and the base to obtain excellent hemostasis. Monsel's paste was placed and patient was awoken and taken recovery in stable condition. Grafts/Implants Used: none - Complications none - Admit VTE Documentation VTE Present on Admission: No
--- NOTE | 2018-09-15 11:58 | DCINST_ITS ---
Discharge Diet: No Restrictions Discharge Activity: Return to Normal Activity, May not drive while taking narcotic pain medications. May resume sexual activity in: 4 weeks - Nothing in the vagina for 4 weeks Call your doctor if you observe: Fever of 101 or Higher, Using more than one pad per hour Allergies/Adverse Reactions: Allergies No Known Allergies Allergy (Verified 09/15/18 09:43) Medications to take at Discharge Naproxen [Naprosyn] 250 - 500 mg PO Q8H PRN PRN #30 tablet 09/15/18 The following prescriptions were given: Naproxen [Naprosyn] 250 - 500 mg PO Q8H PRN PRN #30 tablet PRN Reason: MILD PAIN Primary Care Physician: Lindsey Drake PA-C [Primary Care Provider] - Test Results: Test results from this visit will be discussed in further detail at your follow- up appointment, if applicable. Please Follow Up With: Mirella Lamar MD - [phone]
[2018-09-15 12:00] VITALS: BP 119/78; BP 125/84; PULSE 78; RESP 16; TEMP 36.9; O2SAT 99
[2018-09-15 12:05] VITALS: BP 113/79; BP 125/84; PULSE 76; RESP 16; O2SAT 99
[2018-09-15 12:10] VITALS: BP 111/76; BP 125/84; PULSE 72; RESP 16; O2SAT 99
[2018-09-15 12:16] VITALS: BP 111/72; BP 125/84; PULSE 65; RESP 16; TEMP 36.3; O2SAT 98
[2018-09-15 12:57] VITALS: BP 125/84
== END 2018-09-15 12:58 | disposition home or self-care (01) ==
LOC: SDC 09:27 → AC 09:28
PROVIDERS: Anesthesiology; Family Provider Family Medicine; PCP Family Medicine; Referring Provider Obstetrics & Gynecology; Visit Provider Obstetrics & Gynecology
PROC: 0UBC7ZZ Excision of Cervix, Via Natural or Artificial Opening (ICD-10-PCS; CPT 57522; principal; 2018-09-15 10:55)
DX: D06.9 Carcinoma in situ of cervix, unspecified (principal); N88.8 Other specified noninflammatory disorders of cervix uteri; F41.9 Anxiety disorder, unspecified; Z79.899 Other long term (current) drug therapy; Z86.2 Personal history of diseases of the blood and blood-forming organs and certain disorders involving the immune mechanism
CPT/HCPCS: 57522; 81025; 85027; 86850; 86900; 88305; 88307; 88341; 88342; J7120; J2405

== ENCOUNTER 2018-12-10 15:19 | Emergency (ER) | payer MEDICAID, OTHER, SELFPAY ==
[2018-12-10 15:20] VITALS: BP 144/76; PULSE 120; RESP 18; TEMP 36.8; O2SAT 100; BMI 23.8
[2018-12-10 15:56] VITALS: RESP 16
[2018-12-10 15:57] LABS: Bacteria 0 SEEN /hpf (None Seen); Mucous, Urine 0 SEEN /hpf (<or=2+); Red Blood Cells-Urine 0 SEEN /hpf (0-5)
[2018-12-10] MEDS: Acetaminophen 325 MG Tablet 650 MG PO (15:58)
[2018-12-10 16:00] LABS: Glucose, Dipstick Normal (Normal); Ketone-Dipstick Negative (Negative); Leukocyte Esterase-Dipstick 25 /ul (Negative); Nitrite-Dipstick Negative (Negative); Occult Blood-Urine Negative /ul (Negative); Protein-Dipstick Negative (Negative); Urine Bilirubin Dipstick Negative (Negative); Urine Urobilinogen Normal (Normal)
[2018-12-10 16:09] LABS: Color, Urine Yellow (Yellow); Urine Clarity Sl. Cloudy (Clear)
[2018-12-10 16:10] LABS: Absolute Lymphocyte Count 0.76 X10^3/uL (0.83-4.51); Absolute Neutrophil Count 4.2 X10^3/uL (2.0-7.7); Basophil# 0.05 X10^3/uL; Basophil% 0.9 % (0-1); Eosinophil# 0.01 X10^3/uL; Eosinophils% 0.2 % (0-5); Hemoglobin 13.1 g/dL (12.0-15.0); Lymphocyte # 0.76 X10^3/ul (4.0); Lymphocyte % 14.1 % (19-41); Mean Corp Hgb Conc 32.8 g/dL (32-36); Mean Corpuscular Hgb 28.1 pg (27.0-32.0); Mean Corpuscular Volume 85.7 fL (81-99); Mean Platelet Vol. 9.8 fl (6.2-12.0); Monocyte# 0.36 X10^3/uL; Monocyte% 6.7 % (0-10); NRBC Flagged by Analyzer 0 % (0-5); Neutrophil % 77.9 % (47-70); Platelet Count 224 K/mm3 (150-450); RBC Distribution Width CV 13.7 % (11.6-14.6); RBC Distribution Width SD 42.8 fl (35.1-43.9); Red Blood Count 4.67 M/mm3 (4.2-5.4); White Blood Count 5.4 K/mm3 (4.4-11.0)
[2018-12-10 16:11] LABS: Squamous Epithelial Cells - UA 0-5 SEEN /hpf (5-10); White Blood Cells 0-5 SEEN /hpf (0-5)
[2018-12-10 16:23] LABS: AST(SGOT) 23 U/L (15-37); Alanine Aminotransfer ALT/SGPT 23 U/L (13-56); Albumin, Serum 4.3 g/dL (3.2-5.0); Alkaline Phosphatase 104 U/L (45-117); Anion Gap 7 (5-15); BUN 7 mg/dL (7-18); BUN/Creat Ratio 10.2 RATIO (10-20); Calcium,Total 9.2 mg/dL (8.5-10.1); Chloride 105 mmol/L (98-107); Creatinine, Serum 0.68 mg/dL (0.55-1.02); EST Glomerular Filtration Rate 114 mL/min (>60); Est Glom Filt Rate - Afr Amer 137 mL/min (>60); Estimated Creatinine Clearance 112.06 ml/min; Globulin 4.2 g/dL (2.2-4.2); Glucose 79 mg/dL (74-106); Potassium 3.7 mmol/L (3.5-5.1); Protein, Total 8.5 g/dL (6.4-8.2); Sodium Level 137 mmol/L (136-145)
--- NOTE | 2018-12-10 16:55 | US_ITS ---
STUDY: FIRST TRIMESTER OBSTETRICAL ULTRASOUND REASON FOR EXAM: Female, 23 years old. . Pain. LMP: 11/07/2018 TECHNIQUE: Transabdominal and Transvaginal PRIOR ULTRASOUND: None. FINDINGS: There is fluid in the endometrial canal which may represent an early gestational sac. However, no yolk sac or pole is identified. The uterus measures 7.3 x 6.2 x 5.4 cm. There is no demonstrated uterine fibroid. The cervix is closed. The right ovary measures 2.6 x 1.7 x 1.7 cm. There is no right ovarian cyst. There is no visualized right adnexal mass or complex lesion. The left ovary measures 3.5 x 3.3 x 2.4 cm. There is no left ovarian cyst. There is no visualized left adnexal mass or complex lesion. There is a moderate amount of fluid in the cul de sac. US/Transvaginal w/Preg US IMPRESSION: Questionable early gestational sac. However, no sac or pole is identified. Therefore, there is no definite intrauterine gestation identified at this time. The differential diagnosis includes an early intrauterine gestation, a spontaneous or a nonvisualized ectopic . Follow-up sonography in beta hCG levels are recommended. Moderate amount of free fluid. Electronically Signed: Joseph Lama, at 18:58 EDT Tel , Service support ,
--- NOTE | 2018-12-10 17:29 | ED.VIS.FEGU ---
History of Present Illness Informant: Patient, Spouse/S.O. Pain: Pelvic Pain Onset: Yesterday Context: Gradual Onset Timing: Intermittent Quality: Cramping Location: Suprapubic Current Severity: Moderate Maximum Severity: Severe Worsened by: Movement Relieved by: Remaining Still Issue: Negative for: Vaginal bleeding, Passing clots, Passing tissue Associated Symptoms: Negative for: Dysuria, Frequency, Urgency, Hematuria Test: Positive, Urine Sexually: Active, Single Partner Control: No control P: 1 Ab: 0 Narrative: 23-year-old female presents to the emergency department with pelvic pain. Patient is approximately 5-1/2 weeks . She is G2, P1 with a previous natural delivery just over a year. She had a LEEP procedure done 3 months ago. Noted since yesterday she has been having some lower pelvic pain and cramping. She has had nausea but no vomiting. She denies diarrhea melena or hematochezia. Denies vaginal bleeding or discharge. Denies urinary symptoms. Denies fevers. She has had a visit but no ultrasound. With her previous she had preeclampsia and was induced at 37 weeks and had a natural delivery. She is not on any antihypertensives at this time she is having back Prior similar symptoms: No Recent Illness/Hospitalization: No <Black Julio - Last Filed: 12/10/18 17:29> <Lloyd Bowens - Last Filed: 12/10/18 20:48> Chief Complaint: Past Medical History Prior records reviewed: Yes Past Medical History: - - preeclampsia Surgical History: no surgical history Lives: With Family Smoking Status: Never smoker <Black Julio - Last Filed: 12/10/18 17:29> <Lloyd Bowens - Last Filed: 12/10/18 20:48> - Allergies and Home Meds Allergies/Adverse Reactions: Allergies No Known Allergies Allergy (Verified 12/10/18 15:19) Primary Care Physician: Lindsey Drake PA-C [Primary Care Provider] - Review of Systems All systems negative except as indicated Gastrointestinal: Reports: Abdominal pain Genitourinary: Reports: - - pelvic pain <Black Julio - Last Filed: 12/10/18 17:29> General: Denies: Chills, Fever, Sweats Eyes: Denies: Visual changes - bilaterally, Diplopia ENT: Denies: Rhinorrhea, Sore throat Cardiovascular: Denies: Chest pain, Palpitations, Heart racing Respiratory: Denies: Dyspnea, Cough, Dyspnea on exertion Musculoskeletal: Denies: Myalgias, Arthralgias, Neck pain, Back pain, Swelling, Extremity Pain, -, - Skin: Denies: Rash, Wounds Neurological: Denies: Headache, Weakness, Numbness Hematologic: Denies: Easy bruising, Easy bleeding, Lymphadenopathy, -, - <Bowens,Lloyd - Last Filed: 12/10/18 20:48> Physical Exam Vital Signs/Narrative: Vital Signs Temp Pulse Resp BP Pulse Ox 12/10/18 15:56 16 12/10/18 15:20 98.3 F 120 H 18 144/76 H 100 Inital Vital Signs reviewed: Yes General: Well nourished, Well developed Head: Normocephalic, Atraumatic Eyes: Perrl, EOMI ENT: Moist mucous membranes Neck: Supple, Nontender Cardiovascular: Regular rate, Regular rhythm, No murmurs Respiratory: No distress, CTA bilaterally, Chest nontender Abdomen: Soft, Nondistended, Normal bowel sounds, No masses, Tender - RLQ, suprapubic and LLQ pain on palpation. . Negative for: Guarding, Rebound tenderness : Speculum exam: Normal external genitalia Back: Nontender. Negative for: CVA tenderness Extremities: Nontender, No edema Skin: Normal color, No rash Neurological: Alert, Oriented x3 <Lorraine Julioony - Last Filed: 12/10/18 17:29> Vital Signs/Narrative: Vital Signs Pulse Resp BP Pulse Ox 12/10/18 18:52 98 16 116/76 98 <Bowens,Lloyd - Last Filed: 12/10/18 20:48> Diagnostic/Tx/Re-eval Impressions Obstetrics Ultrasound 12/10/18 16:55 IMPRESSION: Questionable early gestational sac. However, no sac or pole is identified. Therefore, there is no definite intrauterine gestation identified at this time. The differential diagnosis includes an early intrauterine gestation, a spontaneous or a nonvisualized ectopic . Follow-up sonography in beta hCG levels are recommended. Moderate amount of free fluid. Electronically Signed: Joseph Lama, at 18:58 EDT Tel , Service support , 12/10/18 16:55 Transvaginal w/Preg US [US] Stat Laboratory Results 12/10/18 12/10/18 12/10/18 15:50 15:55 15:55 WBC 5.4 RBC 4.67 Hgb 13.1 Hct 40.0 MCV 85.7 MCH 28.1 MCHC 32.8 RDW Std Deviation 42.8 RDW Coeff of Janay 13.7 Plt Count 224 MPV 9.8 Immature Gran % (Auto) 0.200 Neut % (Auto) 77.9 H Lymph % (Auto) 14.1 L Rab[place] % (Auto) 6.7 Eos % (Auto) 0.2 Baso % (Auto) 0.9 Absolute Neuts (auto) 4.2 Absolute Lymphs (auto) 0.76 L Nucleated RBC % 0 Sodium 137 Potassium 3.7 Chloride 105 Carbon Dioxide 25.0 Anion Gap 7 BUN 7 Creatinine 0.68 Estim Creat Clear Calc 112.06 Est GFR (MDRD) Af Amer 137 Est GFR (MDRD) Non-Af 114 BUN/Creatinine Ratio 10.2 Glucose 79 Calcium 9.2 Total Bilirubin 0.30 AST 23 ALT 23 Alkaline Phosphatase 104 Total Protein 8.5 H Albumin 4.3 Globulin 4.2 Albumin/Globulin Ratio 1.0 HCG, Quant Urine Color Yellow Urine Clarity Sl. Cloudy Urine pH 7.0 Ur Specific [place] 1.010 Urine Protein Negative Urine Glucose (UA) Normal Urine Ketones Negative Urine Occult Blood Negative Urine Nitrite Negative Urine Bilirubin Negative Urine Urobilinogen Normal Ur Leukocyte Esterase 25 H Urine RBC 0 SEEN Urine WBC 0-5 SEEN Ur Squamous Epith Cells 0-5 SEEN Urine Bacteria 0 SEEN Urine Mucus 0 SEEN 12/10/18 15:55 WBC RBC Hgb Hct MCV MCH MCHC RDW Std Deviation RDW Coeff of Janay Plt Count MPV Immature Gran % (Auto) Neut % (Auto) Lymph % (Auto) [place] % (Auto) Eos % (Auto) Baso % (Auto) Absolute Neuts (auto) Absolute Lymphs (auto) Nucleated RBC % Sodium Potassium Chloride Carbon Dioxide Anion Gap BUN Creatinine Estim Creat Clear Calc Est GFR (MDRD) Af Amer Est GFR (MDRD) Non-Af BUN/Creatinine Ratio Glucose Calcium Total Bilirubin AST ALT Alkaline Phosphatase Total Protein Albumin Globulin Albumin/Globulin Ratio HCG, Quant 1460 H Urine Color Urine Clarity Urine pH Ur Specific [place] Urine Protein Urine Glucose (UA) Urine Ketones Urine Occult Blood Urine Nitrite Urine Bilirubin Urine Urobilinogen Ur Leukocyte Esterase Urine RBC Urine WBC Ur Squamous Epith Cells Urine Bacteria Urine Mucus - Medical Decision/Diagnostic Studies Patient presents with atypical discomfort. She states she feels like she has restless legs. She points to discomfort in right and left inguinal area. This is her second . She had preeclampsia with first . She states she is approximate 5 6 weeks gestation. She has not had an ultrasound with this . Patient was initially seen by physician lead assistant manager Black Carbone. On my examination patient has left adnexal discomfort. There is no evidence of inguinal hernia. There is no inguinal lymphadenopathy. She also has discomfort with pressure against the bladder. Ultrasound was obtained which reveals moderate amount of fluid. The ultrasound may represent early need to also consider missed AB and ectopic with a moderate amount of fluid in the pelvis. A serum quantitative hCG was ordered. 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 Lamar. Spoke with Dr. Mirella Lamar. She will begin to evaluate patient and determine course of treatment and disposition Dr. Lamar reviewed the sound and states she has a gestational sac. She has told the patient to follow-up with her. <Lloyd Bowens - Last Filed: 12/10/18 20:48> ED Disposition <Black Julio - Last Filed: 12/10/18 17:29> <Lloyd Bowens - Last Filed: 12/10/18 20:48> - Plan for ED Patient: Disposition: Home or Assisted Living Diagnosis: Normal first in first trimester, Lower abdominal pain, unspecified Instructions: ABDOMINAL PAIN, Early Referrals: Lindsey Drake PA-C [Primary Care Provider] - Mirella Lamar MD [STAFF PHYSICIAN] - 1-2 Weeks
[2018-12-10 18:52] VITALS: BP 116/76; PULSE 98; RESP 16; O2SAT 98
[2018-12-10 20:17] LABS: hCG Titer Quant., Serum 1460 mIU/mL (1-3)
--- NOTE | 2018-12-10 20:20 | ED.RN ---
LAB CALLED WITH LAB RESULTS. HGC LEVEL 1460. DR. BEAVERS NOTIFIED. OB TO BE PAGED AT THIS TIME
[2018-12-10 20:48] VITALS: RESP 16
[2018-12-10 21:01] VITALS: BP 127/87; PULSE 91; RESP 15
== END 2018-12-10 21:02 | disposition home or self-care (01) ==
PROVIDERS: Physician Assistant Medical; Emergency Provider Emergency Medicine; Family Provider Family Medicine; PCP Family Medicine
DX: O26.891 Other specified pregnancy related conditions, first trimester (principal); R10.2 Pelvic and perineal pain; Z3A.00 Weeks of gestation of pregnancy not specified; Z87.59 Personal history of other complications of pregnancy, childbirth and the puerperium
CPT/HCPCS: 76817; 80053; 81001; 84702; 85025; 99283; A4216

== ENCOUNTER → 2019-01-09 13:17 | Outpatient (CLI) | payer OTHER, SELFPAY ==
[2019-01-09 09:01] VITALS: BMI 24.5
[2019-01-09 15:20] LABS: Chlamydia Trachomatis by PCR Negative (Negative); Neisserai gonorrhoeae by PCR Negative (Negative); Probe Check PASS; Sample Adequacy Control PASS; Specimen Processing Control PASS
== END ==
PROVIDERS: Referring Provider Obstetrics & Gynecology; Visit Provider Obstetrics & Gynecology
DX: Z34.90 Encounter for supervision of normal pregnancy, unspecified, unspecified trimester (principal)
CPT/HCPCS: 87086; 87088; 87491; 87591

== ENCOUNTER → 2019-01-18 09:25 | Outpatient (CLI) | payer OTHER, SELFPAY ==
[2019-01-18 09:25] VITALS: BMI 24.5
[2019-01-18 10:01] LABS: Absolute Lymphocyte Count 1.71 X10^3/uL (0.83-4.51); Absolute Neutrophil Count 7.3 X10^3/uL (2.0-7.7); Basophil# 0.07 X10^3/uL; Basophil% 0.7 % (0-1); Eosinophil# 0.12 X10^3/uL; Eosinophils% 1.2 % (0-5); Hematocrit 38.1 % (37-47); Hemoglobin 12.2 g/dL (12.0-15.0); Lymphocyte # 1.71 X10^3/ul (4.0); Lymphocyte % 17.5 % (19-41); Mean Corpuscular Hgb 26.8 pg (27.0-32.0); Mean Corpuscular Volume 83.6 fL (81-99); Mean Platelet Vol. 9.5 fl (6.2-12.0); Monocyte% 5.1 % (0-10); NRBC Flagged by Analyzer 0 % (0-5); Neutrophil # 7.33 X10^3/uL (2.7-7.7); Neutrophil % 75.1 % (47-70); Platelet Count 258 K/mm3 (150-450); RBC Distribution Width CV 14.1 % (11.6-14.6); Red Blood Count 4.56 M/mm3 (4.2-5.4); White Blood Count 9.8 K/mm3 (4.4-11.0)
[2019-01-18 11:23] LABS: HIV - WCH Non-Reactive (Nonreactive); Rubella IgG 17.2 IU/mL
[2019-01-20 02:41] LABS: Rapid Plasmin Reagin (RPR) NONREACTIVE (NONREACTIVE)
== END ==
PROVIDERS: Family Provider Family Medicine; PCP Family Medicine; Referring Provider Obstetrics & Gynecology; Visit Provider Obstetrics & Gynecology
DX: Z34.81 Encounter for supervision of other normal pregnancy, first trimester (principal)
CPT/HCPCS: 36415; 85025; 86592; 86703; 86762; 86850; 86900; 86901

== ENCOUNTER → 2019-04-04 17:51 | Outpatient (CLI) | payer OTHER, SELFPAY ==
[2019-04-04 08:35] VITALS: BMI 24.5
[2019-04-04 18:09] LABS: Protein, Urine (Random) 11.9 mg/dL (<11.9); Protein:Creat Ratio 130 mg/g CRE (0-200)
== END ==
PROVIDERS: PCP Family Medicine; Visit Provider Nurse Practitioner Women's Health
DX: Z87.59 Personal history of other complications of pregnancy, childbirth and the puerperium (principal)
CPT/HCPCS: 82570; 84156

== ENCOUNTER → 2019-05-22 08:30 | Outpatient (CLI) | payer OTHER, SELFPAY ==
[2019-05-01 09:02] VITALS: BMI 24.5
[2019-05-22 09:27] LABS: Absolute Lymphocyte Count 1.57 X10^3/uL (0.83-4.51); Absolute Neutrophil Count 6.5 X10^3/uL (2.0-7.7); Basophil# 0.05 X10^3/uL; Basophil% 0.6 % (0-1); Eosinophil# 0.07 X10^3/uL; Eosinophils% 0.8 % (0-5); Hematocrit 33.6 % (37-47); Hemoglobin 10.6 g/dL (12.0-15.0); Lymphocyte # 1.57 X10^3/ul (4.0); Lymphocyte % 18.1 % (19-41); Mean Corp Hgb Conc 31.5 g/dL (32-36); Mean Corpuscular Hgb 26.8 pg (27.0-32.0); Mean Corpuscular Volume 84.8 fL (81-99); Mean Platelet Vol. 9.5 fl (6.2-12.0); Monocyte# 0.36 X10^3/uL; Monocyte% 4.2 % (0-10); NRBC Flagged by Analyzer 0 % (0-5); Neutrophil # 6.52 X10^3/uL (2.7-7.7); Neutrophil % 75.3 % (47-70); Platelet Count 193 K/mm3 (150-450); RBC Distribution Width CV 13.8 % (11.6-14.6); RBC Distribution Width SD 42.9 fl (35.1-43.9); Red Blood Count 3.96 M/mm3 (4.2-5.4); White Blood Count 8.7 K/mm3 (4.4-11.0)
[2019-05-22 09:48] LABS: Glucose Challenge Gest 1H 50g 126 mg/dL (70-140)
[2019-05-22 10:21] LABS: Hepatitis B Surface Antigen Non-Reactive (Nonreactive)
== END ==
PROVIDERS: PCP Family Medicine; Referring Provider Obstetrics & Gynecology; Visit Provider Obstetrics & Gynecology
DX: Z34.81 Encounter for supervision of other normal pregnancy, first trimester (principal)
CPT/HCPCS: 36415; 82950; 85025; 87340

== ENCOUNTER → 2019-06-05 11:06 | Outpatient (CLI) | payer OTHER, SELFPAY ==
[2019-06-05 10:46] VITALS: BMI 24.5
--- NOTE | 2019-06-05 11:08 | EKG12_ITS ---
Test Reason : HR Blood Pressure : / mmHG Vent. Rate : 105 BPM Atrial Rate : 105 BPM P-R Int : 146 ms QRS Dur : 076 ms QT Int : 320 ms P-R-T Axes : 062 044 025 degrees QTc Int : 422 ms Sinus tachycardia Possible Left atrial enlargement Borderline ECG Confirmed by CHRISTY ORTIZ, DAREN ([id number]), research editor KARLI VILLANUEVA ([id number]) on 06/07/2019 11:07:11 AM Referred By: Rosa Brewer Confirmed By:DAREN HARRISON MD
== END ==
PROVIDERS: PCP Family Medicine; Referring Provider Nurse Practitioner Women's Health; Visit Provider Nurse Practitioner Women's Health
DX: R00.0 Tachycardia, unspecified (principal)
CPT/HCPCS: 93005

== ENCOUNTER → 2019-06-09 12:57 | Outpatient (CLI) | payer OTHER, SELFPAY ==
[2019-06-09 11:55] VITALS: BMI 27.8
== END ==
PROVIDERS: PCP Family Medicine; Referring Provider Internal Medicine Cardiovascular Disease; Visit Provider Internal Medicine Cardiovascular Disease
DX: O26.893 Other specified pregnancy related conditions, third trimester (principal); R00.0 Tachycardia, unspecified; R00.2 Palpitations; Z3A.30 30 weeks gestation of pregnancy
CPT/HCPCS: 93225; 93226

== ENCOUNTER → 2019-07-17 | Outpatient (CLI) | payer OTHER, SELFPAY ==
[2019-07-17 10:23] VITALS: BMI 27.8
== END | disposition home or self-care (01) ==
LOC: LABSPEC 14:40
PROVIDERS: PCP Family Medicine; Visit Provider Obstetrics & Gynecology
DX: Z34.81 Encounter for supervision of other normal pregnancy, first trimester (principal)
CPT/HCPCS: 87077; 87081; 87186

== ENCOUNTER 2019-07-31 10:25 | Outpatient (CLI) | payer OTHER, MEDICAID, SELFPAY ==
[2019-07-31] VITALS (7 sets, daily range): BP systolic 133–141; BP diastolic 73–90; PULSE 100–126; TEMP 37.2; O2SAT 99; BMI 27.8; BMI 29.7
[2019-07-31 11:10] LABS: Protein, Urine (Random) 150.8 mg/dL (<11.9); Protein:Creat Ratio 701 mg/g CRE (0-200)
[2019-07-31] MEDS: Acetaminophen 500 MG Tablet 1000 MG PO (11:10)
[2019-07-31 11:16] LABS: Hematocrit 30.6 % (37-47); Hemoglobin 9.4 g/dL (12.0-15.0); Mean Corp Hgb Conc 30.7 g/dL (32-36); Mean Corpuscular Hgb 23.6 pg (27.0-32.0); Mean Corpuscular Volume 76.9 fL (81-99); Mean Platelet Vol. 10.8 fl (6.2-12.0); Platelet Count 180 K/mm3 (150-450); RBC Distribution Width CV 15.8 % (11.6-14.6); RBC Distribution Width SD 42.9 fl (35.1-43.9); Red Blood Count 3.98 M/mm3 (4.2-5.4); White Blood Count 10.1 K/mm3 (4.4-11.0)
[2019-07-31 11:33] LABS: AST(SGOT) 15 U/L (15-37); Alanine Aminotransfer ALT/SGPT 11 U/L (13-56); Creatinine, Serum 0.48 mg/dL (0.55-1.02); EST Glomerular Filtration Rate 169 mL/min (>60); Est Glom Filt Rate - Afr Amer 204 mL/min (>60); Uric Acid 5.3 mg/dL (2.6-6.0)
[2019-07-31 11:44] LABS: International Normalized Ratio 0.9; Partial Thromboplast Time 24.1 Seconds (24.1-36.2); Prothrombin Time (Protime)PT. 11.9 SECONDS (11.7-14.9)
--- NOTE | 2019-08-01 01:23 | OB.TRI.PN_ITS ---
Progress Notes Date of Service: 07/31/19 Progress Note: Patient presents for triage evaluation secondary to elevated blood pressures in the office and mild intermittent headache x2 weeks. Patient denies any blurry vision. FHT: 145 Moderate variability reactive no decelerations category I tracing [place]: Irregular contractions Assessment and plan: Proteinuria in . All blood pressures 130s over 80s but urine protein is elevated at 700. Other preeclampsia labs are within normal limits and headache resolved with Tylenol. Reactive NST, reassuring maternal and status patient discharged to home to follow-up in office on for repeat blood pressure check, preeclampsia precautions reviewed. See problem list details for additional plan information. Laboratory Studies: Laboratory Tests 07/31/19 07/31/19 07/31/19 Range/Units 11:05 11:05 11:05 WBC 10.1 (4.4-11.0) K/mm3 RBC 3.98 L (4.2-5.4) M/mm3 Hgb 9.4 L (12.0-15.0) g/dL Hct 30.6 L (37-47) % MCV 76.9 L (81-99) fL MCH 23.6 L (27.0-32.0) pg MCHC 30.7 L (32-36) g/dL RDW Std Deviation 42.9 (35.1-43.9) fl RDW Coeff of Janay 15.8 H (11.6-14.6) % Plt Count 180 (150-450) K/mm3 MPV 10.8 (6.2-12.0) fl PT 11.9 (11.7-14.9) SECONDS INR 0.9 APTT 24.1 (24.1-36.2) Seconds Creatinine 0.48 L (0.55-1.02) mg/dL Estim Creat Clear Calc 157.40 ml/min Est GFR (MDRD) Af Amer 204 (>60) mL/min Est GFR (MDRD) Non-Af 169 (>60) mL/min Uric Acid 5.3 (2.6-6.0) mg/dL AST 15 (15-37) U/L ALT 11 L (13-56) U/L U Random Total Protein (<11.9) mg/dL Urine Creatinine (NO RANGE EST.) mg/dL Protein/Creatinin Ratio (0-200) mg/g CRE 07/31/19 Range/Units 10:30 WBC (4.4-11.0) K/mm3 RBC (4.2-5.4) M/mm3 Hgb (12.0-15.0) g/dL Hct (37-47) % MCV (81-99) fL MCH (27.0-32.0) pg MCHC (32-36) g/dL RDW Std Deviation (35.1-43.9) fl RDW Coeff of Janay (11.6-14.6) % Plt Count (150-450) K/mm3 MPV (6.2-12.0) fl PT (11.7-14.9) SECONDS INR APTT (24.1-36.2) Seconds Creatinine (0.55-1.02) mg/dL Estim Creat Clear Calc ml/min Est GFR (MDRD) Af Amer (>60) mL/min Est GFR (MDRD) Non-Af (>60) mL/min Uric Acid (2.6-6.0) mg/dL AST (15-37) U/L ALT (13-56) U/L U Random Total Protein 150.8 H (<11.9) mg/dL Urine Creatinine 215.00 (NO RANGE EST.) mg/dL Protein/Creatinin Ratio 701 H (0-200) mg/g CRE - Problem List (1) Proteinuria affecting Status: Acute Comment: seen 07/30 in triage- bps 130s/80s but elevated protein 700mg. patient to follow up in office on for repeat bp, if elevated plan IOL. Multi Select Codes - Urinary/Genital Urinary/Genital CPT Codes: 95881-22 non-stress test Interp
== END 2019-07-31 12:10 | disposition home or self-care (01) ==
LOC: WPOUT 10:32 → OBT 10:32
PROVIDERS: Obstetrics & Gynecology; PCP Family Medicine; Referring Provider Obstetrics & Gynecology; Visit Provider Obstetrics & Gynecology
DX: O12.10 Gestational proteinuria, unspecified trimester (principal); O26.899 Other specified pregnancy related conditions, unspecified trimester; R03.0 Elevated blood-pressure reading, without diagnosis of hypertension; R51 Headache; Z3A.00 Weeks of gestation of pregnancy not specified
CPT/HCPCS: 36415; 59025; 59050; 82565; 82570; 84156; 84450; 84460; 84550; 85027; 85610; 85730; 99218; G0378

== ENCOUNTER 2019-08-02 14:10 | Inpatient (IN) | payer OTHER, MEDICAID, SELFPAY ==
[2019-07-17 10:23] VITALS: BMI 27.8
[2019-07-31 10:45] VITALS: BMI 29.7
[2019-08-02] VITALS (28 sets, daily range): BP systolic 118–163; BP diastolic 69–100; PULSE 74–129; RESP 16; TEMP 36.4–37.7; O2SAT 96–99; BMI 30.2
[2019-08-02 13:21] LABS: Hematocrit 32.3 % (37-47); Mean Corpuscular Hgb 23.6 pg (27.0-32.0); Mean Corpuscular Volume 76.2 fL (81-99); Mean Platelet Vol. 10.8 fl (6.2-12.0); Platelet Count 184 K/mm3 (150-450); RBC Distribution Width CV 16.1 % (11.6-14.6); RBC Distribution Width SD 43.8 fl (35.1-43.9); Red Blood Count 4.24 M/mm3 (4.2-5.4); White Blood Count 9.9 K/mm3 (4.4-11.0)
[2019-08-02 13:33] LABS: International Normalized Ratio 0.9; Partial Thromboplast Time 23.9 Seconds (24.1-36.2); Prothrombin Time (Protime)PT. 11.7 SECONDS (11.7-14.9)
[2019-08-02 13:38] LABS: AST(SGOT) 17 U/L (15-37); Alanine Aminotransfer ALT/SGPT 12 U/L (13-56); Creatinine, Serum 0.59 mg/dL (0.55-1.02); EST Glomerular Filtration Rate 135 mL/min (>60); Est Glom Filt Rate - Afr Amer 163 mL/min (>60); Estimated Creatinine Clearance 128.06 ml/min; Uric Acid 5.6 mg/dL (2.6-6.0)
[2019-08-02 13:59] LABS: Protein:Creat Ratio 973 mg/g CRE (0-200)
[2019-08-02] MEDS: Lactated Ringers 1,000 ML 50 ML IV (14:30)
--- NOTE | 2019-08-02 15:32 | HP.PCM_ITS ---
- Problem List (1) 38 weeks gestation of Status: Acute (2) Pre-eclampsia affecting , antepartum Status: Acute (3) GBS (group B Streptococcus carrier), +RV culture, currently Status: Acute Comment: PCN in labor History Date of Admission: 08/02/19 Final SUJIT: 08/13/19 Final SUJIT Source: US <20 weeks Gestational age: 38 Weeks and 3 Days History of this : This is a 24 year-old, G [2], P [1], at 38 weeks gestational age. Medical History: Medical History (Last Reviewed 07/31/19 @ 09:59 by Mila Chaidez) H/O LEEP (loop electrosurgical excision procedure) of cervix complicating (Acute) O34.40, Z98.890 08/2018, cervical length screening nl Abnormal Pap smear of cervix R87.619 Allergies No Known Allergies Allergy (Verified 08/02/19 13:10) Home Medications: Home Medications vitamin#30 30 mg iron-10 mg iron-folic acid 1 mg-omg3 capsule 1 cap PO DAILY cap 12/23/18 breast pump See Rx Instructions .ROUTE .MEDSUPPLY #1 ea 04/04/19 sertraline 50 mg tablet 50 mg PO QDAY #30 tab 06/19/19 Smoking Status: Never smoker Alcohol: None Number of Fetus(es): 1 NST - FHR Rate Baby A Baseline: 140 Variability:: Moderate Accelerations:: 15 x 15 NST Reactive:: Yes FHR Category:: Category I Uterine Activity:: Q 2.5-5 min, irregular History Past Pregnancies: Past Pregnancies Del. Date Name GA/Weeks Outcome Route Bth Weight Gen Labor Lgth Anesthesia Del Locatn Provider FOB 01/02/18 Reid 38 live - full term NS VD Male epidural [facility] Labs: Mom's Problem List Problem Status Onset Code 38 weeks gestation of Acute Z3A.38 Pre-eclampsia affecting , antepartum Acute O14.90 Mom's Labs & Results 08/02/19 08/02/19 08/02/19 13:05 13:05 13:05 WBC 9.9 RBC 4.24 Hgb 10.0 L Hct 32.3 L MCV 76.2 L MCH 23.6 L MCHC 31.0 L RDW Std Deviation 43.8 RDW Coeff of Janay 16.1 H Plt Count 184 MPV 10.8 PT 11.7 INR 0.9 APTT 23.9 L Creatinine 0.59 Estim Creat Clear Calc 128.06 Est GFR (MDRD) Af Amer 163 Est GFR (MDRD) Non-Af 135 Uric Acid 5.6 AST 17 ALT 12 L U Random Total Protein Urine Creatinine Protein/Creatinin Ratio Blood Type Antibody Screen 08/02/19 08/02/19 13:30 14:30 WBC RBC Hgb Hct MCV MCH MCHC RDW Std Deviation RDW Coeff of Janay Plt Count MPV PT INR APTT Creatinine Estim Creat Clear Calc Est GFR (MDRD) Af Amer Est GFR (MDRD) Non-Af Uric Acid AST ALT U Random Total Protein 36.0 H Urine Creatinine 37.00 Protein/Creatinin Ratio 973 H Blood Type A POSITIVE Antibody Screen NEGATIVE Course Did the patient receive Yes care? Labs Blood Type: A RH: POSITIVE RPR/VDRL/Syphilis Nonreactive Rubella status Immune HbSAg Negative Date Done: 05/22/19 Chlamydia Negative Gonorrhea Negative HIV/AIDS Non-Reactive Group B Strep: Positive Current Obstetrical History Gestational Diabetes No Incompetent Cervix No Infertility No IUGR No Macrosomia No Hypertension/Pre-eclampsia Yes Placenta Previa/Abruption No PTL/PROM No Uterine anomaly No Oligohydramnios No Polyhydramnios No Multiple gestation No Past Medical History Asthma No Diabetes No Hypertension No Heart disease No Mitral valve prolapse No Neurologic/Seizure disorder/ No Migraines Kidney disease No Liver disease No Varicosities No Clotting disorders/Hx of DVT No Thyroid Dysfunction No Other medical diseases No Psychiatric disorders Yes: anxiety Major trauma No Abnormal PAP smear Yes Sleep apnea No Mammogram in the last 2 years No Medications Taken During Dose/Freq.: [serlatine] 50mg/daily Social History Marital Status: Alleged father Syd Hx Smoking No Smoking Status Never smoker Expected Infant Delivery Method: Spontaneous Vaginal Number of Visits: 13 Review of Systems Constitutional: Denies: Chills, Fever, Weight Change HEENT: Reports: Head Aches. Denies: Sinus Congestion, Sinus Drainage Cardiovascular: Denies: Chest Pain, Palpitations Respiratory: Denies: Cough, Shortness of breath at rest, Sputum production Gastrointestinal: Denies: Abdominal Pain, Nausea, Vomiting Genitourinary: Denies: Dysuria Musculoskeletal: Denies: Joint Pain, Joint Tenderness Skin: Denies: Rash, Wounds Neurological: Denies: Numbness, Tingling, Focal weakness Psychiatric: Denies: Anxiety, Depression, Homicidal Ideations, Suicidal Ideations Hematologic/ Lymphatic: Denies: Easy Bruising, Easy Bleeding Physical Exam Vitals: Vital Signs Temp Pulse BP Pulse Ox 99.0 F 85 137/79 H 99 08/02/19 13:02 08/02/19 15:22 08/02/19 15:22 08/02/19 13:33 General: Alert, Oriented x3, No apparent distress HEENT: Atraumatic, Normocephalic. 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 Negative for: Vulvar lesions Estimated gestational size: Appropriate for gestational size Presentation: Cephalic Cervix Dilation (cm): 3 Station: -3 Effacement (%): 50 Assessment/Plan All Active Problems (Last Reviewed 07/31/19 @ 09:59 by Mila Chaidez) Proteinuria affecting (Acute) 38 weeks gestation of (Acute) Pre-eclampsia affecting , antepartum (Acute) GBS (group B Streptococcus carrier), +RV culture, currently (Acute) General counseling and advice for contraceptive management (Acute) Tachycardia with heart rate 141-160 beats per minute (Acute) Anemia affecting (Acute) History of pre-eclampsia (Acute) (Acute) H/O LEEP (loop electrosurgical excision procedure) of cervix complicating (Acute) Supervision of normal (Acute) HGSIL (high grade squamous intraepithelial lesion) on Pap smear of cervix (Acute) Anxiety (Acute) Abnormal glucose tolerance in (Resolved) Anemia affecting in second trimester (Resolved) Elevated BP without diagnosis of hypertension (Resolved) Headache (Resolved) Preeclampsia (Resolved) (Resolved) Proteinuria affecting (Resolved) Supervision of normal (Resolved) A: -This is a 24 year-old, G [2], P [1], at 38 weeks gestational age. -Reports onset of headache several days ago. Had pre-e workup 07/31/19 which all labs were normal with exception of protein/creatinine urine ratio of 701. Today, called in with persistent headache, not relieved with Tylenol. Protein/creatinine ratio today 973 with other labs WNL. -BP remain elevated with systolic 130s-150s/90s-100s -After consultation with attending Dr. Aceves, admitted for IOL -SVE 3/60/-3 posterior -UC 2.5-5 min, irregular, mild -Category I NST -GBS+ P: -IOL with AROM -Will recheck SVE in 2 hours. Patient wishes to try to labor as natural as possible. If no cervical change in 6 hours will start Pitocin -IV antibiotics and may be hep locked in between -Plans to use labor tub for pain management -Discussed PRN Labetolol as needed for elevated pressures -Expect
[2019-08-02] MEDS: Acetaminophen 325 MG Tablet PO (16:25)
--- NOTE | 2019-08-02 17:30 | PCM.PN.OB ---
Patient Problems: Active and Suspected Problems (Last Reviewed 07/31/19 @ 09:59 by Mila Chaidez) 38 weeks gestation of (Acute) Pre-eclampsia affecting , antepartum (Acute) Subjective: Contractions now 4/10 pain. Doing well. Objective: VSS. Last BP 128/74. Up at bedside standing, rocking and breathing through contractions. - Physical Exam Vitals/I&O's: Vital Signs Temp Pulse BP Pulse Ox 99.5 F H 83 128/74 H 99 08/02/19 16:14 08/02/19 16:14 08/02/19 16:14 08/02/19 16:14 Weight: 79.832 kg Body Mass Index (BMI) 30.2 Intake and Output for Last 24 Hours 07/31/19 08/01/19 08/02/19 23:59 23:59 23:59 Intake Total 105 / 105 Balance 105 / 105 General: Alert, Oriented x3, Cooperative HEENT: Atraumatic, PERRLA, EOMI, Normocephalic Neck: Supple, No JVD, Negative Carotid Bruits Lungs: Clear to auscultation, Normal air movement Cardiovascular: Regular rate, No murmurs Abdomen: Bowel Sounds Present, Soft, Non Tender Extremities: No edema, Capillary Refill Less than 3 Seconds Skin: No rashes, No breakdown Musculoskeletal: No Tenderness to Palpation of Joints or Extremities Neurological: Cranial nerves II-XII grossly intact Psych/Mental Status: Normal Affect, Appropriate Laboratory Results 08/02/19 13:05: WBC 9.9, RBC 4.24, Hgb 10.0 L, Hct 32.3 L, MCV 76.2 L, MCH 23.6 L, MCHC 31.0 L, RDW Std Deviation 43.8, RDW Coeff of Janay 16.1 H, Plt Count 184, MPV 10.8 08/02/19 13:05: PT 11.7, INR 0.9, APTT 23.9 L 08/02/19 13:05: Creatinine 0.59, Estim Creat Clear Calc 128.06, Est GFR (MDRD) Af Amer 163, Est GFR (MDRD) Non-Af 135, Uric Acid 5.6, AST 17, ALT 12 L 08/02/19 13:30: U Random Total Protein 36.0 H, Urine Creatinine 37.00, Protein/Creatinin Ratio 973 H 08/02/19 14:30: Blood Type A POSITIVE, Antibody Screen NEGATIVE Current Medications Acetaminophen (Tylenol) 325 - 650 mg PO Q4H PRN PRN PRN Reason: Pain Score 1-3/10 Last Admin: 08/02/19 16:25 Dose: 650 mg Documented by: Al Hydroxide/Mg Hydroxide (Mylanta Ii) 15 - 30 ml PO Q4H PRN PRN PRN Reason: INDIGESTION Citric Acid/Sodium Citrate (Bicitra) 30 ml PO X1 PRN PRN Reason: Section Fentanyl Citrate (Sublimaze (100mcg Ampule)) 25 - 50 mcg IV Q2H PRN PRN PRN Reason: Pain Score 4-10/10 Hydralazine HCl (Apresoline Iv) 10 mg IV X1 PRN PRN Reason: Elevated BP Lactated Ringer's () 500 mls @ 999 mls/hr IV .Q31M PRN PRN Reason: Epidural Lactated Ringer's () 500 mls @ 999 mls/hr IV .Q31M PRN PRN Reason: Corrective Measures Lactated Ringer's () 1,000 mls @ 50 mls/hr IV .Q20H TODD Last Admin: 08/02/19 14:30 Dose: 50 mls/hr Documented by: Penicillin G Potassium/Dextrose (Penicillin G Potassium) 3 mu in 50 mls @ 100 mls/hr IV Q4H TODD Labetalol HCl (Trandate) 20 mg IV X1 PRN PRN Reason: Elevated BP Labetalol HCl (Trandate) 40 mg IV X1 PRN PRN Reason: Elevated BP Labetalol HCl (Trandate) 80 mg IV X1 PRN PRN Reason: Elevated BP Ondansetron HCl (Zofran) 4 mg IV Q4H PRN PRN PRN Reason: NAUSEA Prochlorperazine Edisylate (Compazine Iv) 10 mg IV Q6H PRN PRN PRN Reason: NAUSEA Sodium Chloride () 10 - 40 ml IV X1 PRN PRN Reason: SALINE FLUSH Medical Necessity - Tobacco Use Smoking Status: Never smoker Assessment/Plan All Active Problems (Last Reviewed 07/31/19 @ 09:59 by Mila Chaidez) Proteinuria affecting (Acute) 38 weeks gestation of (Acute) Pre-eclampsia affecting , antepartum (Acute) GBS (group B Streptococcus carrier), +RV culture, currently (Acute) General counseling and advice for contraceptive management (Acute) Tachycardia with heart rate 141-160 beats per minute (Acute) Anemia affecting (Acute) History of pre-eclampsia (Acute) (Acute) H/O LEEP (loop electrosurgical excision procedure) of cervix complicating (Acute) Supervision of normal (Acute) HGSIL (high grade squamous intraepithelial lesion) on Pap smear of cervix (Acute) Anxiety (Acute) Abnormal glucose tolerance in (Resolved) Anemia affecting in second trimester (Resolved) Elevated BP without diagnosis of hypertension (Resolved) Headache (Resolved) Preeclampsia (Resolved) (Resolved) Proteinuria affecting (Resolved) Supervision of normal (Resolved) A: SVE 6/90/-1 anterior FHR baseline 145, + accels, -decels, moderate variability, Category I UC 2.5-3.5 minutes Active labor 1 dose of Penicillin finished P: Plans to get into labor tub for pain management SVE in 2H or as needed with pressure 2nd dose of Penicillin due at [address] Yola ORTIZ updated
[2019-08-02] MEDS: Oxytocin 30 units/NS 500 ml 30 UNITS/500 ML IV.SOLN 334 UNITS IV (20:08)
[2019-08-02] MEDS: 0.9% Saline Lock 10 ML Syringe IV (20:18)
--- NOTE | 2019-08-02 20:52 | OP.PCM_ITS ---
Problem List (1) 38 weeks gestation of Status: Acute (2) Pre-eclampsia affecting , antepartum Status: Acute (3) GBS (group B Streptococcus carrier), +RV culture, currently Status: Acute Comment: PCN in labor Vaginal Delivery Maternal Presentation: Medically Indicated Induction Method of Induction: Amniotomy Medical Reason for Induction: Preeclampsia, eclampsia Amniotic Membrane Rupture Type: Artificial Rupture of Membrane time: 1515 Amniotic Fluid Description: Clear Final SUJIT: 08/13/19 Gestational age: 38 Weeks and 3 Days Date of Procedure: 08/02/19 Pre-Operative Diagnosis: Pre-eclampsia, Induction of Labor Post-Operative Diagnosis: S/P Surgery/ Procedure Performed: Spontaneous Vaginal Delivery Type of Anesthesia: Local with 1% lidocaine Description of Procedure: Patient had spontaneous urge to push with anterior lip. Able to retract back with one push. Patient pushed well to deliver head in OA to LIONEL. Loose nuchal x1 reduced at perineum. Body delivered after 25 seconds with maternal effort and traction given by CNM. Snug shoulders noted with body followed by terminal meconium. The male infant was placed on the maternal abdomen and further attended by nursery personnel with bulb suction and stimulation. The cord was doubly clamped then cut by FOB with CNM supervision at approximately 3 minutes of life. IV Pitocin started per protocol. With gentle cord traction spontaneous delivery of placenta. IV Pitocin started per protocol. Fundal massage given with fundus firm and midline. First degree perineal laceration noted and repaired with a 3.0 rapide double after localized injection of lidoca ine 1%. Good hemostasis achieved. Vaginal swelling and bruising noted. EBL 250. Sponge and needle count correct x2. Apgars 9/10. Presentation: Vertex, LIONEL Placental Delivery Description: Spontaneous Placenta Disposition: [facility] Cord Vessel Description: 3 Vessels Cord Entanglement: Around neck x 1, loose Estimated Blood Loss: 250 Infant A gender: Male (1 minute): 9 (5 minute): 10 Episiotomy Description: None Laceration: Perineal Extension/lac, 1st degree Medications given after delivery: IV Pitocin
--- NOTE | 2019-08-02 21:01 | DCINST_ITS ---
Discharge Diet: No Restrictions Discharge Activity: Return to Normal Activity, May not drive while taking narcotic pain medications., May Shower May resume sexual activity in: 4-6 weeks Additional Activity Instructions:: Nothing in the vagina for 4-6 weeks. You may return to work/school in 6 weeks. Call your doctor if your incision/area has: Continuous Slow Oozing, Sudden Increased Bleeding, Increased Pain/ Swelling, Increased Redness, Foul Smelling Discharge Additional Instructions: If you experience any of the following, contact your healthcare provider. * Bleeding that soaks a pad every hour for 2 hours * Fever 100.4 or higher * Unrelieved incision or abdominal pain * Swelling, redness, discharge or bleeding from your incision or episiotomy site * Your incision begins to separate * Problems urinating (including inability to urinate or burning while urinating). * Visual changes * Severe headache * Flu-like symptoms * Pain or redness in one of both of your breasts * Pain, warmth, tenderness or swelling in your legs, especially the calf area * Frequent nausea and vomiting * Symptoms of depression or anxiety If you experience any of the following, call 911 or go to the nearest Emergency Room. * Chest pain * Problems breathing * Seizure activity * Partial or complete paralysis of a body part, slurred speech, weakness or drooping of the face, or a sudden inability to walk or hold your balance Allergies/Adverse Reactions: Allergies No Known Allergies Allergy (Verified 08/02/19 13:10) Medications to take at Discharge vitamin#30 30 mg iron-10 mg iron-folic acid 1 mg-omg3 capsule 1 cap PO DAILY cap 12/23/18 breast pump See Rx Instructions .ROUTE .MEDSUPPLY #1 ea 04/04/19 sertraline 50 mg tablet 50 mg PO QDAY #30 tab 06/19/19 When: Call to make an appointment with your doctor in 6 weeks. If you had elevated Blood Pressure or 4th degree laceration you will need to be seen in 2 weeks. Primary Care Physician: Lindsey Drake PA-C [Primary Care Provider] - Test Results: Test results from this visit will be discussed in further detail at your follow- up appointment, if applicable.
[2019-08-02] MEDS: Ibuprofen 600 MG Tablet PO (21:14)
[2019-08-03] VITALS (13 sets, daily range): BP systolic 121–133; BP diastolic 67–85; PULSE 73–105; RESP 16–18; TEMP 36.4–37.9; O2SAT 96
[2019-08-03] MEDS: Ibuprofen 600 MG Tablet PO ×4 (03:33→21:32)
[2019-08-03 06:39] LABS: Hematocrit 28.6 % (37-47); Hemoglobin 8.8 g/dL (12.0-15.0); Mean Corp Hgb Conc 30.8 g/dL (32-36); Mean Corpuscular Hgb 23.2 pg (27.0-32.0); Mean Corpuscular Volume 75.3 fL (81-99); Platelet Count 183 K/mm3 (150-450); RBC Distribution Width CV 16.1 % (11.6-14.6); RBC Distribution Width SD 43.6 fl (35.1-43.9); White Blood Count 15.3 K/mm3 (4.4-11.0)
--- NOTE | 2019-08-03 08:45 | PCM.PN.OB ---
Patient Problems: Active and Suspected Problems (Last Reviewed 07/31/19 @ 09:59 by Mila Chaidez) 38 weeks gestation of (Acute) Pre-eclampsia affecting , antepartum (Acute) Subjective: doing well no complaints pain controlled no CP SOB N V ambulating well tolerating po lochia moderate, going well - Physical Exam Vitals/I&O's: Vital Signs Temp Pulse Resp BP Pulse Ox 99.0 F 77 16 121/73 H 96 08/03/19 03:40 08/03/19 03:42 08/03/19 03:40 08/03/19 03:42 08/02/19 22:39 Oxygen Delivery Method Room Air Weight: 176 lb Body Mass Index (BMI) 30.2 Intake and Output for Last 24 Hours 08/01/19 08/02/19 08/03/19 23:59 23:59 23:59 Intake Total 857.5 / 857.5 Output Total 201 / 201 Balance 656.5 / 656.5 General: Alert, Oriented x3 Laboratory Results 08/02/19 13:05: WBC 9.9, RBC 4.24, Hgb 10.0 L, Hct 32.3 L, MCV 76.2 L, MCH 23.6 L, MCHC 31.0 L, RDW Std Deviation 43.8, RDW Coeff of Janay 16.1 H, Plt Count 184, MPV 10.8 08/02/19 13:05: PT 11.7, INR 0.9, APTT 23.9 L 08/02/19 13:05: Creatinine 0.59, Estim Creat Clear Calc 128.06, Est GFR (MDRD) Af Amer 163, Est GFR (MDRD) Non-Af 135, Uric Acid 5.6, AST 17, ALT 12 L 08/02/19 13:30: U Random Total Protein 36.0 H, Urine Creatinine 37.00, Protein/Creatinin Ratio 973 H 08/02/19 14:30: Blood Type A POSITIVE, Antibody Screen NEGATIVE 08/03/19 06:07: WBC 15.3 H, RBC 3.80 L, Hgb 8.8 L, Hct 28.6 L, MCV 75.3 L, MCH 23.2 L, MCHC 30.8 L, RDW Std Deviation 43.6, RDW Coeff of Janay 16.1 H, Plt Count 183, MPV 11.0 Current Medications Acetaminophen (Tylenol) 1,000 mg PO Q8H PRN PRN PRN Reason: Pain Score 1-3/10 Bisacodyl (Dulcolax) 10 mg RECTAL UD PRN PRN Reason: If no BM Hydrocortisone (Hytone) 1 applic TOPICAL TID PRN PRN; Protocol PRN Reason: Discomfort Ibuprofen (Motrin) 600 mg PO Q6H TODD Last Admin: 08/03/19 03:33 Dose: 600 mg Documented by: Methylergonovine Maleate (Methergine) 0.2 mg IM X1 PRN PRN Reason: Excess bleeding/uterine atony Ondansetron HCl (Zofran) 4 mg IV Q4H PRN PRN PRN Reason: Nausea Oxycodone HCl (Oxyir) 5 - 10 mg PO Q4H PRN PRN PRN Reason: Pain Score 4-10/10 Senna/Docusate Sodium (Senokot-S, Scarlet-Colace) 1 - 2 tablet PO DAILY PRN PRN PRN Reason: Constipation Sertraline HCl (Zoloft) 50 mg PO DAILY TODD Simethicone (Mylicon) 80 mg PO PCHS PRN PRN Reason: Indigestion/Stomach pain Sodium Chloride () 5 - 15 ml IV UD PRN PRN Reason: SALINE FLUSH Throat Lozenges (Dermoplast (Sp)) 1 applic TOPICAL 4X/DAY PRN PRN; Protocol PRN Reason: Pain/Inflammation Medical Necessity - Tobacco Use Smoking Status: Never smoker Assessment/Plan All Active Problems (Last Reviewed 07/31/19 @ 09:59 by Mila Chaidez) Proteinuria affecting (Acute) 38 weeks gestation of (Acute) Pre-eclampsia affecting , antepartum (Acute) GBS (group B Streptococcus carrier), +RV culture, currently (Acute) General counseling and advice for contraceptive management (Acute) Tachycardia with heart rate 141-160 beats per minute (Acute) Anemia affecting (Acute) History of pre-eclampsia (Acute) (Acute) H/O LEEP (loop electrosurgical excision procedure) of cervix complicating (Acute) Supervision of normal (Acute) HGSIL (high grade squamous intraepithelial lesion) on Pap smear of cervix (Acute) Anxiety (Acute) Abnormal glucose tolerance in (Resolved) Anemia affecting in second trimester (Resolved) Elevated BP without diagnosis of hypertension (Resolved) Headache (Resolved) Preeclampsia (Resolved) (Resolved) Proteinuria affecting (Resolved) Supervision of normal (Resolved) s/p PPD # 1 1. routine post delivery care 2. breast feeding- support given 3. rh positive 4. rubella immune monitoring routine bps
[2019-08-03] MEDS: Sertraline 50 MG Tablet PO (09:00)
[2019-08-03] MEDS: Senna/Docusate Sodium 1 Tablet PO (21:32)
== END 2019-08-03 21:55 | disposition home or self-care (01) | DRG 807 ==
LOC: WPOUT 14:18 → WP 14:18
PROVIDERS: Admitting Provider Obstetrics & Gynecology; PCP Family Medicine; Referring Provider Obstetrics & Gynecology; Visit Provider Obstetrics & Gynecology
DX: O15.1 Eclampsia complicating labor (principal); Z37.0 Single live birth; O99.824 Streptococcus B carrier state complicating childbirth; Z3A.38 38 weeks gestation of pregnancy; F41.9 Anxiety disorder, unspecified; O99.344 Other mental disorders complicating childbirth; O69.81X0 Labor and delivery complicated by cord around neck, without compression, not applicable or unspecified; O77.0 Labor and delivery complicated by meconium in amniotic fluid; O70.0 First degree perineal laceration during delivery
CPT/HCPCS: 59025; 59050; 82565; 82570; 84156; 84450; 84460; 84550; 85027; 85610; 85730; 86850; 86900; 86901; 99218; J7120; A4216; G0378

== ENCOUNTER → 2019-09-07 | Outpatient (CLI) | payer OTHER, MEDICAID, SELFPAY ==
[2019-09-07 11:44] VITALS: BMI 30.2
[2019-09-14 11:16] LABS: HPV Reflexed? NOT INDICATED
== END | disposition home or self-care (01) ==
LOC: LABSPEC 14:49
PROVIDERS: PCP Family Medicine; Referring Provider Obstetrics & Gynecology; Visit Provider Obstetrics & Gynecology
DX: Z12.4 Encounter for screening for malignant neoplasm of cervix (principal)
CPT/HCPCS: 88175; G0145

== ENCOUNTER → 2020-03-25 | Outpatient (CLI) | payer MEDICAID, SELFPAY ==
[2020-03-25 09:50] VITALS: BMI 23.8
[2020-03-27 15:54] LABS: HPV Reflexed? NOT INDICATED
== END | disposition home or self-care (01) ==
LOC: LABSPEC 12:22
PROVIDERS: PCP Family Medicine; Referring Provider Nurse Practitioner Women's Health; Visit Provider Nurse Practitioner Women's Health
DX: Z12.4 Encounter for screening for malignant neoplasm of cervix (principal)
CPT/HCPCS: 88175; G0145

== ENCOUNTER 2021-04-23 10:49 | Outpatient (CLI) | payer BC, MEDICAID, SELFPAY ==
[2021-04-26 11:08] LABS: HPV Reflexed? NOT INDICATED
== END 2021-04-23 23:59 | disposition short-term general hospital (02) ==
LOC: LABSPEC 10:51
PROVIDERS: PCP Family Medicine; Visit Provider Nurse Practitioner Women's Health
DX: R87.613 High grade squamous intraepithelial lesion on cytologic smear of cervix (HGSIL) (principal)
CPT/HCPCS: 88175; G0145

== ENCOUNTER 2021-06-03 12:38 | Day surgery (SDC) | payer BC, MEDICAID, SELFPAY ==
--- NOTE | 2021-06-03 09:07 | HP.PCM_ITS ---
History and Physical Date of Admission: 06/03/21 Intake Visit Reasons: tubal Occupational Therapy Co Director Required: No Is patient in pain?: No Allergies No Known Allergies Allergy (Verified 05/12/21 08:55) Medications escitalopram oxalate 20 mg tablet 20 mg PO DAILY 04/23/21 [History Confirmed 05/12/21] Post menopausal: No Patient : No : No PFS Medical History Abnormal Pap smear of cervix Family History Sister Antiphospholipid antibody syndrome Mother Diabetes Other Hypertension Social History adopted: No household members: family number of children: 2 current occupational status: employed current occupation: [employer] and [employer] Smoking Status: Never smoker second hand exposure: No alcohol intake: never substance use type: does not use caffeine: No what type of physical activity do you participate in: walking frequency: daily seatbelt use: always do you feel safe at home: Yes additional social history: Syd HPI tubal Details: BEAU HAMILTON is a 26 year old who presents for preop appointment. she has a lap bilateral salpingectomy for sterilization planned. Female Reproductive History Menopausal Symptoms: No night sweats Pregancy History 2 Elective abortions Hx Para 2 Spontaneous abortions Hx # Term Pregnancies 1 Ectopic pregnancies Hx # Pregnancies Multiple births # of living children 2 Past Pregnancies Del. 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 Syd 01/02/18 Reid 38 live - full term 8.1 Male 12 hours epidural [facility] Syd Delivery Date: [facility] Rafaela delivered due to SM out on vacation Sharmin Del Real Delivery Date: 01/02/18 PreEclampsia Layne Joseph Const Constitutional: Denies fatigue, night sweats, weight gain or weight loss ENT ENT: Reports system reviewed and no additional complaints, except as documented Cardio Card: Denies chest pain Resp Resp: Denies cough or dyspnea GI GI: Reports as per HPI; Denies abdominal pain, constipation, nausea or vomiting : Denies nipple discharge, urinary frequency, urinary incontinence, urinary hesitancy, urinary urgency, vaginal discharge, vaginal dryness, vaginal odor or vaginal pruritus Musc Musc: Denies arthralgias, back pain or muscle weakness Skin Skin/Breast: Denies alopecia, change in hair, dry skin, breast mass, breast pain, breast skin changes or nipple discharge Neuro Neuro: Reports system reviewed and no additional complaints, except as documented Psych Psych: Reports system reviewed and no additional complaints, except as documented Endo Endo: Denies cold intolerance, excessive sweating, heat intolerance or polydipsia Adelso/Lymph Hematologic/Lymphatic: Denies easy bleeding, Denies easy bruising and Denies lymphadenopathy Exam Const General: cooperative, healthy appearing, comfortable, no acute distress and well developed Orientation: alert HENMD Head: normal to inspection and normocephalic Ears: hearing grossly normal bilaterally and external ears normal Nose: external nose normal and nares normal Face and sinus: normal facial exam Neck Neck: normal visual inspection and no lymphadenopathy Thyroid: thyroid normal Chest Chest palpation & inspection: normal inspection of the chest Resp Effort & Inspection: normal respiratory effort Auscultation: clear to auscultation bilaterally Cardio Rate: regular rate Rhythm: regular rhythm Heart Sounds: S1 normal and S2 normal GI Inspection: normal to inspection and non-distended Palpation: soft and no hepatosplenomegaly Musc Other: gross motor intact no deficits, full bilateral strength Skin General: no rashes or lesions noted Neuro General: patient alert, patient awake, moves all extremities and no focal motor deficits Motor: muscle tone normal throughout Extrem General: normal to inspection and no pedal edema Psych Appearance: grossly normal Mental Status: mental status grossly normal Affect: normal affect Speech and Movement: speech and movement normal Coding Level of Care Code No Charge Diagnoses Sterilization Z30.2 Assessment and Plan Assessment and Plan (1) Sterilization: Status: Acute Comment: plan fortunato CALERO Plan - Dr. Mirella Lamar MD: After discussing the patient's diagnosis and treatment plan options, patient wishes to proceed with surgical management. I have discussed with the patient the risks, benefits, and alternatives of the procedure which include but are not limited to risks of anesthesia, bleeding, infection, possible damage to bowel, bladder, or surrounding vasculature which could lead to additional surgery to evaluate any complications. Patient agrees to procedure and wishes to proceed. ACOG/uptodate references given for additional information regarding procedure. UPDATE- I have seen the patient and performed any clinically relevant updates to the history and physical exam. Mirella Lamar MD
[2021-06-03 13:19] LABS: Internal QC Validated? YES +Cl - CLEAR BKGD
[2021-06-03 13:21] VITALS: BP 118/72; PULSE 82; RESP 16; TEMP 37.3; O2SAT 100; BMI 24.8
[2021-06-03 13:23] LABS: Pregnancy, Urine Negative Negative
[2021-06-03] MEDS: Lactated Ringers 1,000 ML 125 ML IV (13:25)
[2021-06-03 14:05] LABS: Absolute Lymphocyte Count 2.52 X10^3/uL (0.83-4.51); Absolute Neutrophil Count 7.7 X10^3/uL (2.0-7.7); Basophil# 0.09 X10^3/uL; Basophil% 0.8 % (0-1); Eosinophil# 0.18 X10^3/uL; Eosinophils% 1.6 % (0-5); Hemoglobin 13.2 g/dL (12.0-15.0); Lymphocyte # 2.52 X10^3/ul (0.83-4.51); Lymphocyte % 22.7 % (19-41); Mean Corp Hgb Conc 33.8 g/dL (32-36); Mean Corpuscular Hgb 30.1 pg (27.0-32.0); Mean Corpuscular Volume 88.8 fL (81-99); Mean Platelet Vol. 11.6 fl (6.2-12.0); Monocyte# 0.62 X10^3/uL; Monocyte% 5.6 % (0-10); NRBC Flagged by Analyzer 0 % (0-5); Neutrophil # 7.67 X10^3/uL (2.7-7.7); Neutrophil % 68.9 % (47-70); POSITIVE COUNT YES; RBC Distribution Width CV 13.1 % (11.6-14.6); RBC Distribution Width SD 42.6 fl (35.1-43.9); Red Blood Count 4.39 M/mm3 (4.2-5.4); White Blood Count 11.1 K/mm3 (4.4-11.0)
[2021-06-03 14:07] LABS: Differential Indicated SCAN CRITERIA MET
--- NOTE | 2021-06-03 14:10 | FALS_PTH ---
PATIENT: BEAU HAMILTON [place] [facility] [place][id number] AGE/SX: 26/F ROOM: RE06/03/[address]: Dr. Mirella Lamar MD : 1995 BED: DIS: 06/03/2021 SPEC #: [id number] RECD: 06/03/21 15:41 STATUS: ETINENE BISHOP #: [id number] MARCY: 06/03/21 14:[address]: Mirella Lamar DEPT: SURGICAL PATHOLOGY RECD BY: Amber Rawls ENTERED: 06/04/21 11:34 SP TYPE: FALL TUBES OTHR DR: Lindsey Drake PA-C Tissues: Fallopian tube Procedures: Surgery Specimen Level II HEADER OPERATION: Laparoscopic bilateral salpingectomy, IUD removal PRE-OP DIAGNOSIS: Sterilization TISSUE SUBMITTED: Bilateral fallopian tubes MICROSCOPIC DIAGNOSIS Bilateral fallopian tubes, salpingectomy: Bilateral fallopian tubes, no pathologic diagnosis. SJ:lito 06/05/2021 MICROSCOPIC DESCRIPTION Slides are reviewed. GROSS DESCRIPTION Received in fixative is one container labeled with the patient's name and designated bilateral fallopian tubes. The specimen consists of two fallopian tubes with an average length of 6.5 cm and has an average diameter of 0.7 cm. Both fallopian tubes have normal fimbriated ends. No mass lesions are identified. [employer] sections are submitted in two cassettes with each cassette containing one fallopian tube. / AM:lito 06/04/2021 TC:4 CPT: 69540 x2
--- NOTE | 2021-06-03 14:31 | PCM.OPRPT ---
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 Bladder was drained of clear urine and SCDs were on preoperatively. Uterus was sounded and a uterine manipulator was placed after dilating. Attention was then paid to the abdominal portion of the procedure and the umbilicus was elevated with towel clamps and injected with Marcaine and after a 5 mm incision was made and the Veress needle was entered into the abdomen confirmed to be intra-abdominal with a low opening pressure of less than 5 mmHg. Abdomen was insufflated with CO2 gas and a 5 mm optical trocar was placed under direct visualization. A 5 mm port suprapubically was placed under direct visualization. Uterus was well visualized and bilateral fallopian tubes identified and bilateral tubes were elevated and transecting across the mesosalpinx and the attachment to the uterine corpus bilaterally the tubes were removed without complication. Excellent hemostasis was noted. Fallopian tubes were removed through the lower port site without complication. Liver and upper abdomen were visualized notably within normal limits and no other gross abnormalities were seen in the abdomen. All instruments removed from the abdomen after gas was desufflated. Port sites were closed with 3-0 Monocryl Steri's and op sites were applied. All instruments removed from the vagina and patient was awoken and taken recovery in stable condition. Grafts/Implants Used: none Complications none Admit VTE Documentation VTE Present on Admission: No VTE Mechan Device Prophylaxis: SCD's Multi Select Codes Urinary/Genital Urinary/Genital CPT Codes: 76591 Laproscopic BS/O
[2021-06-03 14:33] LABS: Platelet Estimate ADEQUATE (ADEQ)
--- NOTE | 2021-06-03 14:33 | DCINST_ITS ---
Discharge Instructions Diet Discharge Diet: No restrictions Activity Discharge Activity: Return to Normal Activity, May Not Drive (for 2 weeks or while taking narcotic pain meds.), May Shower and May Take a Tub Bath (in 7 days) May resume sexual activity in: 1 week Weight Bearing Status: Full weight bearing Dressing / Incision Call your doctor if your incision/area has: Continuous Slow Oozing, Sudden Increased Bleeding, Increased Pain/ Swelling, Increased Redness and Foul Smelling Discharge Call your doctor if you observe: Fever of 101 or Higher, Using more than 1 pad per hour, Shortness of breath, Chest pain and Uncontrolled pain Suture Line Care: Avoid Pulling/Pushing and Avoid Pinching/Bending Remove Dressing in: 1 week (if present) Cleanse incision/area with: Soap & Water and Keep Dressing Clean & Dry Follow Up Care When: Call to make an appointment with your doctor for a fu/incision check in 1- 2 weeks. Test Results: Test results from this visit will be discussed in further detail at your follow-up appointment, if applicable. Discharge Plan Admission Attending Provider: Mirelal Lamar Primary Care Provider: Lindsey Drake Discharge Orders/Prescriptions Prescriptions: New oxycodone-acetaminophen [Endocet] 5-325 mg tablet 1 tab PO Q4H PRN (Reason: pain) 7 Days Qty: 10 RF: 0 naproxen 250 MG tablet 250 - 500 mg PO Q8H PRN PRN (Reason: MILD PAIN) Qty: 30 RF: 1 No Action escitalopram oxalate [Lexapro] 20 mg tablet 20 mg PO DAILY RF: 0 Referrals / Follow Up: Lindsey Drake PA-C [Primary Care Provider] - Disposition Disposition (needs filled in before D/C Order can be placed): Home, Self Care
[2021-06-03] MEDS: Bupivacaine 0.25% 30 ML Vial (14:45)
[2021-06-03 15:09] VITALS: BP 118/72; BP 130/90; PULSE 125; RESP 16; TEMP 36.6; O2SAT 99
[2021-06-03 15:15] VITALS: BP 118/72; BP 123/82; PULSE 108; RESP 16
[2021-06-03 15:30] VITALS: BP 118/72; BP 120/81; PULSE 87; RESP 16; O2SAT 100
[2021-06-03 15:45] VITALS: BP 114/78; BP 118/72; PULSE 88; RESP 16; TEMP 37
[2021-06-03] MEDS: HYDROcodone Bitartrate/Apap 5/325 Tablet PO (16:12)
[2021-06-03 16:48] VITALS: BP 118/72; BP 118/81; PULSE 89; RESP 16; TEMP 36.5; O2SAT 98
== END 2021-06-03 23:59 | disposition home or self-care (01) ==
LOC: SDC 12:38 → AC 12:39
PROVIDERS: PCP Family Medicine; Referring Provider Obstetrics & Gynecology; Visit Provider Obstetrics & Gynecology
PROC: (CPT 58661; principal; 2021-06-03 13:55)
DX: Z30.2 Encounter for sterilization (principal); F32.A Depression, unspecified; F41.9 Anxiety disorder, unspecified; Z79.899 Other long term (current) drug therapy
CPT/HCPCS: 58661; 00840; 81025; 85025; 86850; 86900; 86901; 88302; J7120; J2405

== ENCOUNTER → 2022-09-26 | Outpatient (CLI) | payer BC, MEDICAID, SELFPAY ==
[2022-09-26 12:50] LABS: Estradiol 47.6 pg/mL; Prolactin 5.1 ng/mL; T4 Free Direct 0.91 ng/dL (0.76-1.46); Thyroid Stim Hormone (TSH) 0.68 uIU/mL (0.358-3.74)
[2022-09-28 09:34] LABS: Progesterone Level 0.32 ng/mL (See Comment)
[2022-09-30 14:09] LABS: Testosterone Free 1.1 pg/mL (0.0-4.2)
== END | disposition home or self-care (01) ==
LOC: LAB 10:14
PROVIDERS: PCP Family Medicine; Referring Provider Obstetrics & Gynecology; Visit Provider Obstetrics & Gynecology
DX: N91.4 Secondary oligomenorrhea (principal)
CPT/HCPCS: 36415; 82627; 82670; 84144; 84146; 84402; 84439; 84443; 82626

== ENCOUNTER → 2022-10-19 | Outpatient (CLI) | payer BC, MEDICAID, SELFPAY ==
[2022-10-19 10:40] LABS: Estradiol 36.1 pg/mL; Follicle Stimulating Hormone 8.5 mIU/mL
[2022-10-19 10:48] LABS: hCG Titer Quant., Serum < 1 mIU/mL (1-3)
== END | disposition home or self-care (01) ==
LOC: LAB 08:52
PROVIDERS: PCP Family Medicine; Referring Provider Obstetrics & Gynecology; Visit Provider Obstetrics & Gynecology
DX: N91.4 Secondary oligomenorrhea (principal)
CPT/HCPCS: 36415; 82670; 83001; 84702

== ENCOUNTER → 2023-01-26 | Outpatient (CLI) | payer BC, SELFPAY ==
[2023-01-29 20:46] LABS: HPV Reflexed? NOT INDICATED
== END | disposition home or self-care (01) ==
LOC: LABSPEC 11:51
PROVIDERS: PCP Family Medicine; Referring Provider Nurse Practitioner Women's Health; Visit Provider Nurse Practitioner Women's Health
DX: Z12.4 Encounter for screening for malignant neoplasm of cervix (principal)
CPT/HCPCS: 88175; G0145

== ENCOUNTER → 2024-12-08 | Outpatient (CLI) | payer BC, SELFPAY ==
--- OUTSIDE RECORDS SUMMARY | 2024-12-08 12:11 | XMS RPT_ITS | CCD ---
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 Mirella Lamar Attending Provider Mirella Lamar Attending Unavailable [place] Robel MORENO Referring Unavailable [place] JOSH Robel Primary Care Unavailable [facility] Robel Primary Care Unavailable Mirella Lamar Referring Unavailable Mirella Lamar Attending Unavailable Mirella Lamar Referring Unavailable Mirella Lamar Attending Unavailable [facility] Robel Primary Care Unavailable Mirella Lamar Attending Unavailable [place] Robel MORENO Referring Unavailable [facility] Robel Primary Care Unavailable Osman TAG MARKER, MARKC Rosa Attending Provider DONAVAN ELISE Attending Unavailable ARIK, DONAVAN Attending Unavailable LAYNE DOMINGUEZ Attending Unavailable LAYNE DOMINGUEZ Referring Unavailable PROVIDER, UNLISTED Attending Unavailable NORTHOMEROBEL PAC Attending Unavailable NORTHOME ROBEL PAC Consulting Unavailable [facility] Primary Care Unavailable NORTHOME ROBEL PAC Admitting Unavailable PROVIDER, UNKNOWN Consulting Unavailable [place] Robel SANTIAGO Primary Care Provider [phone] Robel Drake PA-C Referring Provider [phone] Lucero Ribera CNM Attending Provider [phone] Medications Current Medications Medication Drug Class(es) Dates Sig (Normalized) Sig (Original) escitalopram 10 mg oral tablet (5 sources) Serotonin Reuptake Inhibitor Start: 12-08-2024 take 1 tablet by mouth once daily Escitalopram Oxalate (Lexapro) 10 mg tablet Active 10 mg PO daily 30 6 December 08, 2024 12:00am Depression Depression, unspecified Start: 04-23-2021 End: 06-16-2021 take 1 tablet by mouth once daily Escitalopram Oxalate (Lexapro) 20 mg tablet Discontinued 20 mg PO DAILY April 23, 2021 1:00am June 16, 2021 3:13pm Multivitamin preparation (3 sources) Start: 05-05-2022 take 1 tablet by mouth once daily Multivitamin Active 1 TABLET PO DAILY May 05, 2022 1:00am Completed/Discontinued Medications Medication Drug Class(es) Dates Sig (Normalized) Sig (Original) acetaminophen 325 mg / oxyCODONE hydrochloride 5 mg oral tablet (4 sources) Opioid Agonist Start: 06-03-2021 End: 06-16-2021 Oxycodone-Acetamino phen (Endocet) 5-325 mg tablet Discontinued 1 {tbl} PO Q4H as needed for pain 10 7 0 June 03, 2021 June 16, 2021 3:13pm Status post surgical removal of both fallopian tubes Acquired absence of other genital organ(s) Breast Pump (6 sources) Start: 04-04-2019 End: 03-25-2020 Breast Pump Discontinued 0 .ROUTE .MEDSUPPLY 1 April 04, 2019 3:48pm March 25, 2020 10:49am As directed Start: 04-03-2019 End: 04-04-2019 Breast Pump Discontinued 0 . ROUTE .MEDSUPPLY 1 April 03, 2019 1:00am April 04, 2019 3:48pm As directed Breast Pump device (2 sources) Start: 04-04-2019 End: 03-25-2020 Breast Pump device Discontin ued 0 .ROUTE .MEDSUPPLY 1 0 April 04, 2019 3:48pm March 25, 2020 10:49am As directed Start: 04-03-2019 End: 04-04-2019 Breast Pump device Discontin ued 0 .ROUTE .MEDSUPPLY 1 0 April 03, 2019 1:00am April 04, 2019 3:48pm As directed Desogestrel-Ethinyl Estradiol (8 sources) Progestin, Estrogen Start: 09-25-2022 End: 09-25-2022 take 0.15 tablet by mouth once daily Desogestrel-Ethinyl Estradiol (Apri) 0.15-0.03 mg tablet Discontinued 1 {tbl} PO DAILY 15 04September 25, 2022 12:00am September 25, 2022 11:54am Start: 09-25-2022 End: 10-19-2022 take 0.15 tablet by mouth once daily Desogestrel-Ethinyl Estradiol (Apri) 0.15-0.03 mg tablet Discontinued 1 {tbl} PO DAILY 15 04September 25, 2022 12:00am October 19, 2022 11:01am Start: 09-25-2022 End: 10-19-2022 Desogestrel-Ethinyl Estradio l (Apri) 0.15-0.03 mg tablet Discontinued 1 TABLET PO DAILY September 25, 2022 12:00am October 19, 2022 11:01am Start: 09-25-2022 Desogestrel-Et hinyl Estradiol (Apri) 0.15-0.03 mg tablet Active 1 TABLET PO DAILY September 25, 2022 12:00am Start: 09-25-2022 End: 09-25-2022 Desogestrel-Ethinyl Estradio l (Apri) 0.15-0.03 mg tablet Discontinued 1 TABLET PO DAILY September 25, 2022 12:00am September 25, 2022 11:54am magnesium oxide 500 mg oral capsule (4 sources) Start: 05-05-2022 End: 12-08-2024 take 1 capsule by mouth once daily Magnesium Oxide 500 mg capsule Discontinued 500 mg PO DAILY May 05, 2022 1:00am December 08, 2024 9:16am mecobalamin 1 mg chewable tablet (4 sources) Start: 05-05-2022 End: 12-08-2024 take 1 tablet by mouth once daily Mecobalamin (Vitamin B12) 1,000 mcg tablet,chewable Discontinued 1000 ug PO DAILY May 05, 2022 1:00am December 08, 2024 9:16am medroxyPROGESTERone acetate 10 mg oral tablet (11 sources) Progestin Start: 10-19-2022 End: 12-08-2024 Medroxyprogesterone (Provera) 10 mg tablet Discontinued 10 mg PO daily 01 25October 19, 2022 12:00am December 08, 2024 9:16am take cycle day 14 for ten days Start: 08-24-2022 End: 09-03-2022 take 1 tablet by mouth once daily Medroxyprogesterone 10 mg tablet Discontinued 10 mg PO daily 10 10 0 August 24, 2022 8:25am September 02, 2022 12:00am September 03, 2022 12:04am Start: 06-22-2022 End: 07-02-2022 take 1 tablet by mouth once daily Medroxyprogesterone 10 mg tablet Discontinued 10 mg PO daily 10 10 0 June 22, 2022 1:00am July 01, 2022 12:00am July 02, 2022 12:04am Multivitamin tablet (1 source) Start: 05-05-2022 End: 12-08-2024 Multivitamin tablet Discontinued 1 {tbl} PO DAILY May 05, 2022 1:00am December 08, 2024 9:16am naproxen 250 mg oral tablet (4 sources) Nonsteroidal Anti-inflammatory Drug Start: 06-03-2021 End: 06-16-2021 take 250-500 mg by mouth every eight hours as needed for pain Naproxen 250 MG tablet Discontinued 250 - 500 mg PO EVERY 8 HOURS NEEDED as needed for MILD PAIN 30 June 03, 2021 1:00am June 16, 2021 3:13pm Pnv #91-Ehtg-Kekgq Acid-Omega3 30 mg iron-10 mg iron-1 mg capsule (1 source) Start: 12-23-2018 End: 04-23-2021 Pnv #61-Mwhp-Dwija Acid-Omega3 30 mg iron-10 mg iron-1 mg capsule Discontinued 1 NMA PO DAILY 0 December 23, 2018 12:00am April 23, 2021 10:01am Prenat.Vits,Torsten,Min -Iron-Folic (3 sources) Start: 06-22-2017 End: 08-31-2018 take 1 tablet by mouth once daily Prenat.Vits,Torsten,Mi w-Rmnq-Vnkox Discontinued 1 TABLET PO daily June 22, 2017 1:00am August 31, 2018 2:43pm Prenat.Vits,Torsten,Min -Iron-Folic tablet (1 source) Start: 06-22-2017 End: 08-31-2018 Prenat.Vits,Torsten,Mi d-Abbn-Zofml tablet Discontinued 1 {tbl} PO daily June 22, 2017 1:00am August 31, 2018 2:43pm vitamin#30 30 mg iron-10 mg iron-folic acid 1 mg-omg3 capsule (3 sources) Start: 12-23-2018 End: 04-23-2021 take 1 capsule by mouth once daily vitamin#30 30 mg iron-10 mg iron-folic acid 1 mg-omg3 capsule Discontinued 1 CAP PO DAILY December 23, 2018 12:00am April 23, 2021 10:01am sertraline 50 mg oral tablet (4 sources) Serotonin Reuptake Inhibitor Start: 06-19-2019 End: 09-07-2019 take 1 tablet by mouth once daily Sertraline (Zoloft) 50 mg tablet Discontinued 50 mg PO daily 17 04June 19, 2019 1:00am September 07, 2019 11:44am Problems Active Problems Problem Classification Problem Date Documented Date Episodic/Chronic Abdominal pain (6 sources) Lower abdominal pain; Translations: [Lower abdominal pain, unspecified] 12-11-2018 Episodic Anxiety disorders (4 sources) Anxiety; Translations: [Anxiety disorder, unspecified] 04-23-2021 Chronic Comment on above: lexapro 20 mg by PCP ; stable Cancer of cervix (5 sources) High grade squamous intraepithelial lesion on cervical Papanicolaou smear; Translations: [High grade squamous intraepithelial lesion on cytologic smear of cervix (HGSIL)] 03-25-2020 Episodic Comment on above: s/p LEEP 2017 Contraceptive and procreative management (4 sources) Patient encounter status; Translations: [Encounter for sterilization] 06-04-2021 Episodic Comment on above: plan lap BS Diabetes or abnormal glucose tolerance complicating ; childbirth; or the puerperium (4 sources) Impaired glucose tolerance in ; Translations: [Abnormal glucose complicating ] 09-15-2018 Episodic Comment on above: Normal 3 hr GTT Headache; including migraine (4 sources) Headache; Translations: [Headache] 09-15-2018 Episodic Hypertension complicating ; childbirth and the puerperium (4 sources) Pre-eclampsia; Translations: [Unspecified pre-eclampsia, unspecified trimester] 09-15-2018 Episodic Menstrual disorders (6 sources) Secondary oligomenorrhea; Translations: [Secondary oligomenorrhea] Onset: 10-28-2022 10-19-2022 Chronic Comment on above: labs ordered, plan c yclic provera or OCP depending on diagnosis Mood disorders (5 sources) Depressive disorder; Translations: [Depression] 04-23-2021 Chronic Other circulatory disease (4 sources) Elevated blood-pressure reading without diagnosis of hypertension; Translations: [Elevated blood-pressure reading, without diagnosis of hypertension] 09-15-2018 Episodic Other complications of (4 sources) Anemia in mother complicating , childbirth AND/OR puerperium; Translations: [Anemia complicating , second trimester] 09-15-2018 Chronic Comment on above: Repeat 4 weeks-takin g FE Other complications of (4 sources) Proteinuria; Translations: [Gestational proteinuria, unspecified trimester] 09-15-2018 Episodic Comment on above: Weekly NSTs Other and delivery including normal (12 sources) Normal ; Translations: [Encounter for supervision of normal , unspecified, unspecified trimester] 09-15-2018 Episodic Comment on above: PRR SUJIT 01/15/18 boy Reid boyfriend Syd Other skin disorders (1 source) Acne vulgaris; Translations: [Acne vulgaris] Onset: 07-30-2023 Episodic Prolapse of female genital organs (3 sources) Midline cystocele; Translations: [Cystocele, midline] 01-26-2023 Chronic Residual codes; unclassified (4 sources) Abnormal cytology findings; Translations: [Low grade squamous intraepithelial lesion (LGSIL)] 12-24-2018 Episodic Comment on above: Needs repeat pap in 1 year 02/2019 Unclassified (1 source) Suspected COVID-19 virus infection; Translations: [Suspected COVID-19 virus infection] Onset: 05-12-2021 Unclassified (1 source) Low back pain, unspecified; Translations: [Low back pain, unspecified] Onset: 11-24-2022 Past or Other Problems Problem Classification Problem Date Documented Date Episodic/Chronic Inflammation; infection of eye (except that caused by tuberculosis or sexually transmitteddisease) (1 source) Conjunctivitis Onset: 03-20-2023 Episodic Other upper respiratory infections (1 source) Acute pharyngitis, unspecified; Translations: [Sore throat] Onset: 05-12-2021 Episodic Results Test Name Value Interpretation Reference Range Facility CBC AND DIFFERENTIALon 07-29 Erythrocyte distribution width (RBC) [Ratio] 13.2 % Normal 11.5-14.5 [facility] Comment on above: Performed By: #### L [id number], [id number] #### MALAIKA WHEATLEY (2012) [facility] [address] [place] [address] Hematocrit (Bld) [Volume fraction] 34.8 % Normal 33.6-46.8 [facility] Comment on above: Performed By: #### L [id number], [id number] #### MALAIKA WHEATLEY (2012) [facility] [address] [place] [address] Hemoglobin (Bld) [Mass/Vol] 11.4 g/dL Low 11.7-15.8 [facility] Comment on above: Performed By: #### L [id number], [id number] #### MALAIKA WHEATLEY (2012) [facility] [address] [place] [address] MCH (RBC) [Entitic mass] 27.9 pg Normal 27.5-32.3 [facility] Comment on above: Performed By: #### L [id number], [id number] #### MALAIKA WHEATLEY (2012) [facility] [address] [place] [address] MCHC (RBC) [Mass/Vol] 32.8 g/dL Normal 30.7-35.5 [facility] Comment on above: Performed By: #### L [id number], [id number] #### MALAIKA WHEATLEY (2012) [facility] [address] [place] [address] MCV (RBC) [Entitic vol] 85.1 fL Normal 80.2-99 [facility] Comment on above: Performed By: #### L [id number], [id number] #### MALAIKA WHEATLEY (2012) [facility] [address] [place] [address] PLATELET COUNT 223 x10*3/uL Normal 150-400 [facility] Comment on above: Performed By: #### L [id number], [id number] #### MALAIKA WHEATLEY (2012) [facility] [address] [place] [address] RED BLOOD CELL COUNT 4.09 x10*6/uL Normal 3.60-5.20 [facility] Comment on above: Performed By: #### L [id number], [id number] #### MALAIKA WHEATLEY (2012) [facility] [address] [place] [address] WHITE BLOOD CELLS 4.7 x10*3/uL Normal 4.3-10.3 [facility] Comment on above: Performed By: #### L [id number], [id number] #### MALAIKA WHEATLEY (2012) [facility] [address] [place] [address] COMPREHENSIVE METABOLIC PANE Hawk 07-30-2023 Albumin [Mass/Vol] 4.1 g/dL Normal 3.5-5.0 [facility] Comment on above: Performed By: #### 4 [id number] #### MALAIKA WHEATLEY (2012) [facility] [address] [place] [address] #### [id number] #### [address] [address] [place] ALK PHOS 62 U/L Normal 24-126 [facility] Comment on above: Performed By: #### 4 [id number] #### MALAIKA WHEATLEY (2012) [facility] [address] [place] [address] #### [id number] #### [address] [address] [place] ALT [Catalytic activity/Vol] 20 U/L Normal 4-35 [facility] Comment on above: Performed By: #### 4 [id number] #### MALAIKA WHEATLEY (2012) [facility] [address] [place] [address] #### [id number] #### [address] [address] [place] AST [Catalytic activity/Vol] 34 U/L Normal 3-47 [facility] Comment on above: Performed By: #### 4 [id number] #### MALAIKA WHEATLEY (2012) [facility] [address] [place] [address] #### [id number] #### [address] [address] Bilirubin [Mass/Vol] 0.6 mg/dL Normal 0.2-1.6 [facility] Comment on above: Performed By: #### 4 [id number] #### AMLAIKA WHEATLEY (2012) [facility] [address] [place] [address] #### [id number] #### [address] [address] [facility] Calcium [Mass/Vol] 9.3 mg/dL Normal 8.4-10.4 [facility] Comment on above: Performed By: #### 4 [id number] #### MALAIKA WHEATLEY (2012) [facility] [place] [address] #### [id number] #### [address] [address] [place] Chloride [Moles/Vol] 106 mmol/L Normal 96-109 [facility] Comment on above: Performed By: #### 4 [id number] #### MALAIKA WHEATLEY (2012) [facility] [place] [address] #### [id number] #### [address] [address] [place] CO2 [Moles/Vol] 24 mmol/L Normal 22-30 [facility] Comment on above: Performed By: #### 4 [id number] #### MALAIKA WHEATLEY (2012) [facility] [place] [address] #### [id number] #### [address] [address] [place] Creatinine [Mass/Vol] 0.45 mg/dL Low 0.52-1.04 [facility] Comment on above: Performed By: #### 4 [id number] #### MALAIKA WHEATLEY (2012) [facility] [address] [place] [address] #### [id number] #### [address] [address] [place] GLOMERULAR FILTRATION RATE ML/MIN/1.73 SQ M.PREDICTED 135.4 mL/min/1.73m*2 Normal >=60.0 [facility] Comment on above: Result Comment: eGFR calculation based on the Chronic Kidney Disease Epidemiology Collaboration (CKD-EPI) equation refit without adjustment for race. Categories in Chronic Kidney Disease (CKD) Category: GFR(mL/min/1.73m^2) Interpretation: G1* 90 or greater Normal or high G2* 60-89 Mild decrease G3a 45-59 Mild to moderate decrease G3b 30-44 Moderate to severe decrease G4 15-29 Severe decrease G5 14 or less Kidney failure *G1&G2: In the absence of evidence of kidney damage, neither GFR category G1 nor G2 fulfill the criteria for CKD Kidney Int Suppl.2013;3:1-150 Performed By: #### 4 [id number] #### MALAIKA WHEATLEY (2012) [facility] [address] [place] [address] [place] [address] #### [id number] #### [address] [address] [facility] Glucose [Mass/Vol] 79 mg/dL Normal 65-100 [facility] Comment on above: Performed By: #### 4 [id number] #### MALAIKA WHEATLEY (2012) [facility] [place] [address] #### [id number] #### [place] [place] [address] [place] Potassium [Moles/Vol] 3.2 mmol/L Low 3.6-5.1 [facility] Comment on above: Performed By: #### 4 [id number] #### MALAIKA WHEATLEY (2012) [facility] [address] [place] [address] [place] [address] #### [id number] #### [place] [place] [address] [facility] Protein [Mass/Vol] 6.6 g/dL Normal 6.3-8.2 [facility] Comment on above: Performed By: #### 4 [id number] #### MALAIKA WHEATLEY (2012) [facility] [address] [place] [address] #### [id number] #### [place] [place] [address] [place] Sodium [Moles/Vol] 138 mmol/L Normal 135-147 [facility] Comment on above: Performed By: #### 4 [id number] #### MALAIKA WHEATLEY (2012) [facility] [address] [place] [address] #### [id number] #### [address] [address] [facility] Urea nitrogen [Mass/Vol] 7 mg/dL Low 8-26 [facility] Comment on above: Performed By: #### 4 [id number] #### MALAIKA WHEATLEY (2012) [facility] [address] [place] [address] #### [id number] #### [address] [address] [facility] LDL CHOLESTEROL, DIRECTon LDL CHOLESTEROL DIRECT 95.38 mg/dL Normal <=100 [facility] Comment on above: Result Comment: LDL REFERENCE RANGE: Optimal <100 mg/dl Near Optimal 100-129 mg/dL Borderline High 130-159 mg/dL High 160-189 mg/dL Very High >=190 mg/dL Performed By: #### L DLR #### [address] LIPID PANELon 07-30-2023 Cholesterol [Mass/Vol] 138 mg/dL Normal <=200 [facility] Comment on above: Performed By: #### 4 [id number] #### MALAIKA WHEATLEY (2012) [facility] [address] [place] [address] #### [id number] #### [address] [address] [facility] Cholesterol in HDL [Mass/Vol] 23.0 mg/dL Low 40.0-59.9 [facility] Comment on above: Performed By: #### 4 [id number] #### MALAIKA WHEATLEY (2012) [facility] [address] [place] [address] #### [id number] #### [address] [address] [facility] LDL CHOLESTEROL CALCULATED 97 mg/dL Normal <=100 [facility] Comment on above: Result Comment: LDL REFERENCE RANGE: Optimal <100 mg/dl Near Optimal 100-129 mg/dL Borderline High 130-159 mg/dL High 160-189 mg/dL Very High >=190 mg/dL Performed By: #### 4 [id number] #### MALAIKA WHEATLEY (2012) [facility] [address] [place] [address] #### [id number] #### [address] Triglyceride [Mass/Vol] 90 mg/dL Normal <=150 [facility] Comment on above: Performed By: #### 4 [id number] #### MALAIKA WHEATLEY (2012) [facility] [address] [place] [address] #### [id number] #### [address] VLDL CHOLESTEROL TORSTEN 18 mg/dL Normal <=41 [facility] Comment on above: Performed By: #### 4 [id number] #### MALAIKA WHEATLEY (2012) [facility] [place] [address] #### [id number] #### [address] PERIPHERAL SMEAR REVIEWon ABSOLUTE EOSINOPHIL MANUAL 0.1 x10*3/uL Normal 0.1-0.3 [facility] Comment on above: Performed By: #### L [id number], [id number] #### MALAIKA WHEATLEY (2012) [facility] [address] [place] [address] ABSOLUTE LYMPHOCYTE MANUAL 2.0 x10*3/uL Normal 1.2-3.3 [facility] Comment on above: Performed By: #### L [id number], [id number] #### MALAIKA WHEATLEY (2012) [facility] [address] [place] [address] ABSOLUTE MONOCYTE MANUAL 0.3 x10*3/uL Normal 0.2-0.6 [facility] Comment on above: Performed By: #### L [id number], [id number] #### MALAIKA WHEATLEY (2012) [facility] [address] [place] [address] ABSOLUTE NEUTROPHIL MANUAL 2.4 x10*3/uL Normal 2.4-6.6 [facility] Comment on above: Performed By: #### L [id number], [id number] #### MALAIKA WHEATLEY (2012) [facility] [address] [place] [address] EOSINOPHIL % MANUAL 2 % Normal [facility] Comment on above: Performed By: #### L [id number], [id number] #### MALAIKA WHEATLEY (2012) [facility] [address] [place] [address] HYPOCHROMIA 1+ Normal [facility] Comment on above: Performed By: #### L [id number], [id number] #### MALAIKA WHEATLEY (2012) [facility] [address] [place] [address] LYMPHOCYTE % MANUAL 42 % Normal [facility] Comment on above: Performed By: #### L [id number], [id number] #### MALAIKA WHEATLEY (2012) [facility] [address] [place] [address] MONOCYTE % MANUAL 6 % Normal [facility] Comment on above: Performed By: #### L [id number], [id number] #### MALAIKA WHEATLEY (2012) [facility] [address] [place] [address] NEUTROPHIL % MANUAL 50 % Normal [facility] Comment on above: Performed By: #### L [id number], [id number] #### MALAIKA WHEATLEY (2012) [facility] [address] [place] [address] PLATELET ESTIMATE Normal Normal [facility] Comment on above: Performed By: #### L [id number], [id number] #### MALAIKA WHEATLEY (2012) [facility] [address] [place] [address] WHITE BLOOD CELLS ADJUSTED 4.7 x10*3/uL Normal 4.3-10.3 [facility] Comment on above: Performed By: #### L [id number], [id number] #### MALAIKA WHEATLEY (2012) [facility] [address] [place] [address] Shawna 06-17-2023 ALT [Catalytic activity/Vol] 25 U/L Normal 4-35 [facility] Comment on above: Performed By: #### 4 [id number], [id number] #### MALAIKA WHEATLEY (2012) [facility] [address] [place] [address] #### [id number] #### [address] [address] [place] 06-17-2023 AST [Catalytic activity/Vol] 28 U/L Normal 3-47 [facility] Comment on above: Performed By: #### 4 [id number], [id number] #### MALAIKA WHEATLEY (2012) [facility] [address] [place] [address] #### [id number] #### [address] [address] LIPID PANELon 06-17-2023 Cholesterol [Mass/Vol] 142 mg/dL Normal <=200 [facility] Comment on above: Performed By: #### 4 [id number], [id number] #### MALAIKA WHEATLEY (2012) [facility] [place] [address] #### [id number] #### [address] Cholesterol in HDL [Mass/Vol] 24.0 mg/dL Low 40.0-59.9 [facility] Comment on above: Performed By: #### 4 [id number], [id number] #### MALAIKA WHEATLEY (2012) [facility] [place] [address] #### [id number] #### [address] LDL CHOLESTEROL CALCULATED 86 mg/dL Normal <=100 [facility] Comment on above: Result Comment: LDL REFERENCE RANGE: Optimal <100 mg/dl Near Optimal 100-129 mg/dL Borderline High 130-159 mg/dL High 160-189 mg/dL Very High >=190 mg/dL Performed By: #### 4 [id number], [id number] #### MALAIKA WHEATLEY (2012) [facility] [address] [place] [address] #### [id number] #### [address] [address] [facility] Triglyceride [Mass/Vol] 162 mg/dL High <=150 [facility] Comment on above: Performed By: #### 4 [id number], [id number] #### MALAIKA WHEATLEY (2012) [facility] [address] [place] [address] #### [id number] #### KAYLEE [facility] [address] VLDL CHOLESTEROL TORSTEN 32 mg/dL Normal <=41 [facility] Comment on above: Performed By: #### 4 [id number], [id number] #### MALAIKA WHEATLEY (2012) [facility] [address] [place] [address] #### [id number] #### KAYLEE [address] Cervical or vagninal specime n microscopic examination by cytology stain (reported asOrdered By: Rosa Brewer on 01-26-2023 Cytology report Cyto stain Doc (Cvx/Vag) Comment . [facility] Comment on above: The Pap smear is a s creening test designed to aid in thedetection of premalignant and malignant conditions of theuterine cervix. It is not a diagnostic procedure andshould not be used as the sole means of detecting cervicalcancer. Both false-positive and false-negative reports dooccur. Laboratory - CytologyOrdered By: Rosa Brewer on 01-26-2023 High School Chemistry Teacher Cyto stain Nom (Cvx/Vag) [ID] Comment . [facility] Comment on above: Miguel Ángel Holly, Cyto technologist (ASCP) Laboratory - Miscellaneous t estsOrdered By: Rosa Brewer on 01-26-2023 Service comment (Unsp spec) [Interp] Comment . [facility] Comment on above: This liquid based Th inPrep(R) pap test was screened withthe use of an image guided system. Service comment (Unsp spec) [Interp] . . [facility] No Panel InformationOrdered By: Rosa Brewer on 01-26-2023 Human Papillomavirus Screen Comment . [facility] Comment on above: The HPV DNA reflex c ashwini were not met with this specimenresult therefore, no HPV testing was performed.Performed at: - [address] [id number] Director: Ingrid Bernstein MD, Phone: [phone] Pathology report final diagnosis Narrative Comment . [facility] Comment on above: NEGATIVE FOR INTRAEP ITHELIAL LESION OR MALIGNANCY. Estradiolon 10-19-2022 ESTRADIOL 36.1 pg/mL Normal [facility] Comment on above: Result Comment: NORM AL REFERENCE RANGES FEMALE FOLLICULAR 21.4 - 164.8 pg/mL MID-CYCLE PEAK 49.9 - 367.2 pg/mL LUTEAL 40.2 - 259.0 pg/mL POST-MENOPAUSAL ON MHT <11.0 - 462.1 pg/mL NOT ON MHT <11.0 - 58.3 pg/mL MALE <11.0 - 52.5 pg/mL NOTE: [employer] HAS CONFIRMED THE DRUG FULVETRANT (FASLODEX) MAY CAUSE FALSELY ELEVATED ESTRADIOL RESULTS WHEN USING THIS TEST METHOD. IF PATIENT IS TAKING FULVESTRANT AN ALTERNATIVE METHOD SHOULD BE USED TO DETERMINE ESTRADIOL CONCENTRATION. Performed By: #### L 3300.1750, L3400.4800, L3300.1500, L501.9520, L506.0400, L509.4001, L3100.5420 #### [facility] [address] [place], [place], [id number] Follicle Stimulating Hormone on 10-19-2022 FSH 8.5 mIU/mL Normal [facility] Comment on above: Result Comment: NORMAL REFERENCE RANGES FEMALE FOLLICULAR 2.3 - 12.6 mIU/mL MID-CYCLE PEAK 5.2 - 17.5 mIU/mL LUTEAL 1.7 - 12.9 mIU/mL POST-MENOPAUSAL ON MHT 5.9 - 72.8 mIU/mL NOT ON MHT 12.7 - 132.2 mlU/mL MALE 0.7 - 10.8 mIU/mL Performed By: #### L 3300.1750, L3400.4800, L3300.1500, L501.9520, L506.0400, L509.4001, L3100.5420 #### [facility] [address] [place], [place], [id number] No Panel InformationOrdered By: Mirella Lamar on 10-19-2022 Follicle Stimulating Hormone 8.5 mIU/mL [facility] Comment on above: NORMAL REFERENCE RAN GES FEMALE FOLLICULAR 2.3 - 12.6 mIU/mL MID-CYCLE PEAK 5.2 - 17.5 mIU/mL LUTEAL 1.7 - 12.9 mIU/mL POST-MENOPAUSAL ON MHT 5.9 - 72.8 mIU/mL NOT ON MHT 12.7 - 132.2 mlU/mL MALE 0.7 - 10.8 mIU/mL Nut Roaster Helper Office Visit Reporton 10-19-2022 Nut Roaster Helper Office Visit Report [facility] [address] [place] [address] OFFICE VISIT Date of Service: 10/19/22 MR#: [id number] Acct: [id number] Name: BEAU HAMILTON Rep #: [id number] : 1995 Provider: Dr. Mirella alejandra MD Age/Sex: 27/F [place] [facility] [place]: Signed Intake Vital Signs 05/05/22 08:28 10/19/22 08:15 10/19/22 08:16 Height 5 ft 4 in 5 ft 4 in 5 ft 4 in Weight: 117 lb 4 oz BMI 20.1 BP 136/90 H Intake Visit Reasons: 4 wk fu Allergies No Known Allergies Allergy (Verified 10/19/22 08:15) Medications magnesium oxide 500 mg capsule 500 mg PO DAILY 05/05/22 [History Confirmed 10/19/22] mecobalamin (vitamin B12) 1,000 mcg chewable tablet 1,000 mcg PO DAILY 05/05/22 [History Confirmed 10/19/22] multivitamin 1 tab PO DAILY 05/05/22 [History Confirmed 10/19/22] desogestrel 0.15 mg-ethinyl estradiol 0.03 mg tablet (Apri) 1 tab PO DAILY #28 tabs 09/25/22 [Rx Confirmed 10/19/22] Is last menstrual period known: Yes Post menopausal: No Patient : No : No PFSH Medical History Abnormal Pap smear of cervix Anxiety Cardiology follow-up encounter History of arm fracture History of Holter monitoring Non-smoker Sterilization Wears contact lenses Surgical History History of loop electrical excision procedure (LEEP) Status post bilateral salpingectomy Family History Sister Antiphospholipid antibody syndrome Mother Diabetes Other Hypertension Social History (Updated 05/05/22 @ 08:40 by Mila Chaidez) adopted: No household members: family number of children: 2 current occupational status: employed current occupation: [employer] Smoking Status: Never smoker second hand exposure: No alcohol intake: never substance use type: does not use caffeine: Yes what type of physical activity do you participate in: bicycling frequency: daily seatbelt use: always do you feel safe at home: Yes additional social history: Syd HPI 4 wk fu Details: BEAU HAMILTON is a 27 year old who presents for oligomenorrhea. she has absent sexual drive. she has had weight loss intentionally and menses have stopped since february. She is having increased stress working from home and they are building a home. she has some night sweats but nothing new. she denies any abnormal hair growth. she didn't have a withdrawl bleed from provera but did from the combo OCP. she ahs been sterilized. History 2 Elective abortions Hx Para 2 Spontaneous abortions Hx # Term Pregnancies 2 Ectopic pregnancies Hx # Pregnancies Multiple births # of living children 2 Past Pregnancies Del. 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 Painter Syd 01/02/18 Reid 38 live - full term 8.1 Male 12 hours epidural [facility] S SHARON Velarde Delivery Date: Last Updated by: Sharmin Fernandez OBULICESAnjum Rafaela delivered due to SM out on vacation Delivery Date: 01/02/18 Last Updated by: Layne Joseph PreEclampsia ROS Const Constitutional: Denies fatigue, fever(s), headache(s), increased appetite, poor appetite, weight gain or weight loss Cardio Details: palpitations since , not new GI GI: Reports as per HPI; Denies abdominal pain, constipation, nausea or vomiting : Reports as per HPI; Denies difficulty voiding, dysuria, hematuria, pelvic pain, urinary frequency, urinary incontinence, urinary hesitancy, urinary urgency, vaginal discharge, vaginal dryness, vaginal odor, vaginal pruritus or other Exam Const General: cooperative, healthy appearing, comfortable, no acute distress and well developed Orientation: alert [facility] Head: normal to inspection and normocephalic Ears: hearing grossly normal bilaterally and external ears normal Nose: external nose normal and nares normal Face and sinus: normal facial exam Neck Neck: normal visual inspection, no lymphadenopathy and trachea midline Thyroid: thyroid normal Resp Effort Inspection: normal respiratory effort Musc Other: gross motor intact no deficits, full bilateral strength Skin General: no rashes or lesions noted Neuro Motor: muscle tone normal throughout Coding Level of Care Code Off vis,est,level 4 Diagnoses Secondary oligomenorrhea N91.4 Assessment and Plan Assessment and Plan (1) Secondary oligomenorrhea: Status: Acute Comment: labs ordered Plan Problem list updated and treatment plans were (more content not included)... Normal [facility] Serum or plasma choriogonado tropin detectionOrdered By: Mirella Lamar on 10-19-2022 HCG ( test) Ql < 1 mIU/mL <4 [facility] Comment on above: hCG levels with Gest ational AgeGestational Age hCG mIU/mL (IU/L)0.2 - 1 week 5 - 501-2 weeks 50 - 5002-3 weeks 100 - 39628-0 weeks 500 - 615817-6 weeks 1000 - 928131-2 weeks 95071 - 100,0006-8 weeks 66795 - 200,0002-3 months 27569 - 100,000 Serum or plasma estradiol (E 2) measurement (mass/volume)Ordered By: Mirella Lamar on 10-19-2022 E2 [Mass/Vol] 36.1 pg/mL [facility] Comment on above: NORMAL REFERENCE RAN GES FEMALE FOLLICULAR 21.4 - 164.8 pg/mL MID-CYCLE PEAK 49.9 - 367.2 pg/mL LUTEAL 40.2 - 259.0 pg/mL POST-MENOPAUSAL ON MHT <11.0 - 462.1 pg/mL NOT ON MHT <11.0 - 58.3 pg/mL MALE <11.0 - 52.5 pg/mL NOTE:[employer] HAS CONFIRMED THE DRUG FULVETRANT (FASLODEX) MAY CAUSE FALSELY ELEVATED ESTRADIOL RESULTS WHEN USING THIS TEST METHOD. IF PATIENT IS TAKING FULVESTRANT AN ALTERNATIVE METHOD SHOULD BE USED TO DETERMINE ESTRADIOL CONCENTRATION. hCG Titer Quant., Serumon HCG QUANT. < 1 Normal 1-3 [facility] Comment on above: Result Comment: hCG levels with Gestational Age Gestational Age hCG mIU/mL (IU/L) 0.2 - 1 week 5 - 50 1-2 weeks 50 - 500 2-3 weeks 100 - 5000 3-4 weeks 500 - 84764 4-5 weeks 1000 - 26221 5-6 weeks 01945 - 100,000 6-8 weeks 52516 - 200,000 2-3 months 87418 - 100,000 Performed By: #### L 3100.5125, L3300.1750, L700.8000 #### [facility] [address] [place], [place], [address] DHEA Sulfateon 09-30-2022 DHEA SULFATE 198.0 ug/dL Normal 84.8-378.0 [facility] Comment on above: Order Comment: N Performed By: #### L 3300.1750, L3400.4800, L3300.1500, L501.9520, L506.0400, L509.4001, L3100.5420 #### [facility] [address] [facility] [address] [place], [place], [address] Testosterone Freeon 10-01-19 23 TESTOSTER FREE 1.1 pg/mL Normal 0.0-4.2 [facility] Comment on above: Order Comment: N Result Comment: Perf ormed at: - [address] [id number] Moulder Operator: Deandre De Paz PhD, Phone: [phone] Performed at: [facility] [id number] [place] Operator: Haylie Pepe MD, Phone: [phone] Performed By: #### L 3300.1750, L3400.4800, L3300.1500, L501.9520, L506.0400, L509.4001, L3100.5420 #### [facility] [address] [facility] [place], [place], [id number] Progesterone Levelon 023 Progesterone 0.32 ng/mL Normal See Comment [facility] Comment on above: Result Comment: Prog esterone Reference Table: UNITS Female: Follicular 0.15 - 1.40 ng/mL Luteal 3.34 - 25.56 ng/mL Mid-luteal 4.44 - 28.03 ng/mL Postmenopausal 0.0 - 0.73 ng/mL : 1st Trimester 11.22 - 90.00 ng/mL 2nd Trimester 25.55 - 89.40 ng/mL 3rd Trimester 48.40 -422.50 ng/mL Performed By: #### L 3300.1750, L3400.4800, L3300.1500, L501.9520, L506.0400, L509.4001, L3100.5420 #### [facility] [address] [place], [place], [id number] Estradiolon 09-26-2022 ESTRADIOL 47.6 pg/mL Normal [facility] Comment on above: Result Comment: NORM AL REFERENCE RANGES FEMALE FOLLICULAR 21.4 - 164.8 pg/mL MID-CYCLE PEAK 49.9 - 367.2 pg/mL LUTEAL 40.2 - 259.0 pg/mL POST-MENOPAUSAL ON MHT <11.0 - 462.1 pg/mL NOT ON MHT <11.0 - 58.3 pg/mL MALE <11.0 - 52.5 pg/mL NOTE: [employer] HAS CONFIRMED THE DRUG FULVETRANT (FASLODEX) MAY CAUSE FALSELY ELEVATED ESTRADIOL RESULTS WHEN USING THIS TEST METHOD. IF PATIENT IS TAKING FULVESTRANT AN ALTERNATIVE METHOD SHOULD BE USED TO DETERMINE ESTRADIOL CONCENTRATION. Performed By: #### L 3300.1750, L3400.4800, L3300.1500, L501.9520, L506.0400, L509.4001, L3100.5420 #### [facility] [address] [place], [place], [address] Laboratory - Chemistry and C hemistry - challengeOrdered By: Dr. Lamar on 09-26-2022 Free T4 [Mass/Vol] 0.91 ng/dL 0.76-1.46 [facility] No Panel InformationOrdered By: Mirella Lamar on 09-26-2022 Dehydroepiandrosterone Sulfate 198.0 ug/dL 84.8-378.0 [facility] No Panel InformationOrdered By: Dr. Lamar on 09-26-2022 Thyroid Stimulating Hormone (TSH) 0.68 uIU/mL 0.358-3.74 [facility] Prolactinon 09-26-2022 PROLACTIN 5.1 ng/mL Normal [facility] Comment on above: Result Comment: NORMAL REFERENCE RANGES FEMALE NON- 2.2 - 30.3 ng/mL 8.1 - 347.6 ng/mL POST-MENOPAUSAL 0.7 - 31.5 ng/mL MALE 2.5 - 17.4 ng/mL Performed By: #### L 3300.1750, L3400.4800, L3300.1500, L501.9520, L506.0400, L509.4001, L3100.5420 #### [facility] [place], [address] Serum or plasma estradiol (E 2) measurement (mass/volume)Ordered By: Dr. Lamar on 09-26-2022 E2 [Mass/Vol] 47.6 pg/mL [facility] Comment on above: NORMAL REFERENCE RAN GES FEMALE FOLLICULAR 21.4 - 164.8 pg/mL MID-CYCLE PEAK 49.9 - 367.2 pg/mL LUTEAL 40.2 - 259.0 pg/mL POST-MENOPAUSAL ON MHT <11.0 - 462.1 pg/mL NOT ON MHT <11.0 - 58.3 pg/mL MALE <11.0 - 52.5 pg/mL NOTE:[employer] HAS CONFIRMED THE DRUG FULVETRANT (FASLODEX) MAY CAUSE FALSELY ELEVATED ESTRADIOL RESULTS WHEN USING THIS TEST METHOD. IF PATIENT IS TAKING FULVESTRANT AN ALTERNATIVE METHOD SHOULD BE USED TO DETERMINE ESTRADIOL CONCENTRATION. Serum or plasma progesterone measurement (mass/volume)Ordered By: Dr. Lamar on 09-26-2022 Progesterone [Mass/Vol] 0.32 ng/mL See Comment [facility] Comment on above: Progesterone Referen ce Table: UNITS Female: Follicular 0.15 - 1.40 ng/mL Luteal 3.34 - 25.56 ng/mL Mid-luteal 4.44 - 28.03 ng/mL Postmenopausal 0.0 - 0.73 ng/mL : 1st Trimester 11.22 - 90.00 ng/mL 2nd Trimester 25.55 - 89.40 ng/mL 3rd Trimester 48.40 -422.50 ng/mL Serum or plasma prolactin me asurement (mass/volume)Ordered By: Dr. Lamar on 09-26-2022 Prolactin [Mass/Vol] 5.1 ng/mL [facility] Comment on above: NORMAL REFERENCE RAN GES FEMALE NON- 2.2 - 30.3 ng/mL 8.1 - 347.6 ng/mL POST-MENOPAUSAL 0.7 - 31.5 ng/mL MALE 2.5 - 17.4 ng/mL Serum or plasma testosterone free measurement (mass/volume)Ordered By: Mirella Lamar on 09-26-2022 Testosterone Free [Mass/Vol] 1.1 pg/mL 0.0-4.2 [facility] Comment on above: Performed at: [address] [id number] Director: Deandre De Paz PhD, Phone: [phone] at: [facility] [address] [id number] Director: Haylie Pepe MD, Phone: [phone] T4 Free Directon 09-26-2022 T4 FREE DIRECT 0.91 ng/dL Normal 0.76-1.46 [facility] Comment on above: Performed By: #### L 3300.1750, L3400.4800, L3300.1500, L501.9520, L506.0400, L509.4001, L3100.5420 #### [facility] [address] [place], [address] Thyroid Stim Hormone (TSH)on 09-26-2022 TSH 0.68 uIU/mL Normal 0.358-3.74 [facility] Comment on above: Performed By: #### L 3300.1750, L3400.4800, L3300.1500, L501.9520, L506.0400, L509.4001, L3100.5420 #### [facility] [address] [place], [address] Nut Roaster Helper Office Visit Reporton 05-05-2022 Nut Roaster Helper Office Visit Report [facility] [address] [place] [address] OFFICE VISIT Date of Service: 05/05/22 MR#: [id number] Acct: [id number] Name: BEAU HAMILTON Rep #: [id number] : 1995 Provider: Dr. 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 Required: No Is patient in pain?: No Allergies No Known Allergies Allergy (Verified 05/05/22 08:27) Medications magnesium oxide 500 mg capsule 500 mg PO DAILY 05/05/22 [History Confirmed 05/05/22] mecobalamin (vitamin B12) 1,000 mcg chewable tablet 1,000 mcg PO DAILY 05/05/22 [History Confirmed 05/05/22] multivitamin 1 tab PO DAILY 05/05/22 [History Confirmed 05/05/22] Post menopausal: No Patient : No : No PFSH Medical History Abnormal Pap smear of cervix Anxiety Cardiology follow-up encounter History of arm fracture History of Holter monitoring Non-smoker Sterilization Wears contact lenses Surgical History History of loop electrical excision procedure (LEEP) Status post bilateral salpingectomy Family History Sister Antiphospholipid antibody syndrome Mother Diabetes Other Hypertension Social History (Updated 05/05/22 @ 08:40 by Mila Chaidez) adopted: No household members: family number of children: 2 current occupational status: employed current occupation: [employer] Smoking Status: Never smoker second hand exposure: No alcohol intake: never substance use type: does not use caffeine: Yes what type of physical activity do you participate in: bicycling frequency: daily seatbelt use: always do you feel safe at home: Yes additional social history: Syd History 2 Elective abortions Hx Para 2 Spontaneous abortions Hx # Term Pregnancies 2 Ectopic pregnancies Hx # Pregnancies Multiple births # of living children 2 Past Pregnancies Del. 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 Painter Syd 01/02/18 Reid 38 live - full term 8.1 Male 12 hours epidural [facility] S SHARON Velarde Delivery Date: Last Updated by: Sharmin NEW Rafaela delivered due to SM out on vacation Delivery Date: 01/02/18 Last Updated by: Layne Joseph PreEclampsia HPI Encounter for routine gynecological examination Details: BEAU HAMILTON is a 27 year old who presents for annual exam. Last PAP: 05/10 nl History of abnormal PAP: hgsil Other preventative health care screenings: pcp Female Reproductive History Cycle Length: 21-35 Bleeding Duration: 5 Questions: metorrhagia: No, sexually active: Yes, dyspareunia: No and PCB: No Menopausal Symptoms: No hot flashes, No night sweats, No weight change, No mood changes, No difficulty concentrating, No sleep problems and No change in libido ROS Const Constitutional: Reports as per HPI, fatigue and weight loss; Denies increased appetite, poor appetite, night sweats or weight gain Cardio Card: Denies chest pain Resp Resp: Denies cough or dyspnea GI GI: Reports as per HPI; Denies abdominal pain, bloating, constipation, nausea or vomiting : Reports as per HPI and other; Denies difficulty voiding, dysuria, hematuria, hot flashes, nipple discharge, pelvic pain, prolapse symptoms, urinary frequency, urinary incontinence, urinary urgency, vaginal discharge, vaginal dryness, vaginal odor or vaginal pruritus Skin Skin/Breast: Denies changing lesions, breast mass, breast pain, breast skin changes or nipple discharge Psych Psych: Denies anxiety, change in libido, depression or difficulty concentrating Exam Const General: cooperative, healthy appearing, comfortable, no acute distress, well developed and well groomed HENMT Head: normal to inspection and normocephalic Ears: hearing grossly normal bilaterally and external ears normal Nose: external nose normal Face and sinus: normal facial exam Neck Neck: normal visual inspection, full ROM and no lymphadenopathy Thyroid: thyroid normal Chest Chest palpation inspection: normal inspection of the chest Breast inspection: normal inspection of the breasts and normal inspection of the axillae Breast palpation: normal palpation of the breasts, normal palpation of the axillae and no axillary lymphadenopathy Resp Effort Insp (more content not included)... Normal [facility] Comprehensive metabolic 2000 panelon 02-18-2022 Albumin [Mass/Vol] 4.8 g/dL Normal 3.9-4.9 [facility] Comment on above: Order Comment: Speci christophe Type: BLOOD SPECIMEN Ordering Facility: [facility] Address: [address] [place] [address] Performed By: #### 2 4323-8 #### [facility] CLIA [id number] [address] [place] [address] [place] ALP [Catalytic activity/Vol] 77 U/L Normal 34-123 [facility] Comment on above: Order Comment: Alexys saeed Type: BLOOD SPECIMEN Ordering Facility: [facility] Address: [address] [place] [address] Performed By: #### 2 4323-8 #### [facility] CLIA [id number] [address] [place] [id number] [place] ALT [Catalytic activity/Vol] 17 U/L Normal 7-38 [facility] Comment on above: Order Comment: Speci men Type: BLOOD SPECIMEN Ordering Facility: [facility] Address: [address] [place] [address] Performed By: #### 2 4323-8 #### [facility] CLIA [id number] [address] [address] [place] Anion gap [Moles/Vol] 17 mmol/L Normal 9-18 [facility] Comment on above: Order Comment: Speci men Type: BLOOD SPECIMEN Ordering Facility: [facility] Address: [address] [place] [address] Performed By: #### 2 4323-8 #### [facility] CLIA [id number] [address] [place] [address] [place] AST [Catalytic activity/Vol] 20 U/L Normal 13-35 [facility] Comment on above: Order Comment: Speci men Type: BLOOD SPECIMEN Ordering Facility: [facility] Address: [address] [place] [address] Performed By: #### 2 4323-8 #### [facility] CLIA [id number] [address] [place] [address] [place] Bilirubin [Mass/Vol] 0.3 mg/dL Normal 0.2-1.3 [facility] Comment on above: Order Comment: Speci men Type: BLOOD SPECIMEN Ordering Facility: [facility] Address: [address] [place] [address] Performed By: #### 2 4323-8 #### [facility] CLIA [id number] [address] [place] [address] [place] Calcium [Mass/Vol] 10.1 mg/dL Normal 8.5-10.2 [facility] Comment on above: Order Comment: Speci men Type: BLOOD SPECIMEN Ordering Facility: [facility] Address: [address] [place] [address] Performed By: #### 2 4323-8 #### [facility] CLIA [id number] [address] [place] [address] [place] Chloride [Moles/Vol] 103 mmol/L Normal 97-105 [facility] Comment on above: Order Comment: Speci men Type: BLOOD SPECIMEN Ordering Facility: [facility] Address: [address] [place] [address] Performed By: #### 2 4323-8 #### [facility] CLIA [id number] [address] [place] [address] [place] CO2 [Moles/Vol] 19 mmol/L Low 22-30 [facility] Comment on above: Order Comment: Speci men Type: BLOOD SPECIMEN Ordering Facility: [facility] Address: [address] [place] [address] Performed By: #### 2 4323-8 #### [facility] CLIA [id number] [address] [place] [address] [place] Creatinine [Mass/Vol] 0.55 mg/dL Low 0.58-0.96 [facility] Comment on above: Order Comment: Speci men Type: BLOOD SPECIMEN Ordering Facility: [facility] Address: [address] [place] [address] Performed By: #### 2 4323-8 #### [facility] CLIA [id number] [address] [place] [address] [place] ESTIMATED GLOMERULAR FILTRATION RATE 131 mL/min/1.73m??? Normal >=60 [facility] Comment on above: Order Comment: Speci men Type: BLOOD SPECIMEN Ordering Facility: [facility] Address: [address] [place] [address] Result Comment: Rosa mated Glomerular Filtration Rate (eGFR) is calculated using the 2020 CKD-EPI creatinine equation. This equation utilizes serum creatinine, sex, and age as parameters. The creatinine assay has traceable calibration to isotope dilution-mass spectrometry. Refer to KDIGO guidelines for clinical interpretation. In patients with unstable renal function, e.g. those with acute kidney injury, the eGFR may not accurately reflect actual GFR. Performed By: #### 2 4323-8 #### [facility] CLIA [id number] [address] [place] [address] [place] Glucose [Mass/Vol] 76 mg/dL Normal 74-99 [facility] Comment on above: Order Comment: Speci men Type: BLOOD SPECIMEN Ordering Facility: [facility] Address: [address] [place], [place] [address], [place] [address] Result Comment: The [place] Diabetes Association (ADA) provides guidance for cutoff values for fasting glucose and random glucose. The ADA defines fasting as no caloric intake for at least 8 hours. Fasting plasma glucose results between 100 to 125 mg/dL indicate increased risk for diabetes (prediabetes). Fasting plasma glucose results greater than or equal to 126 mg/dL meet the criteria for diagnosis of diabetes. In the absence of unequivocal hyperglycemia, results should be confirmed by repeat testing. In a patient with classic symptoms of hyperglycemia or hyperglycemic crisis, random plasma glucose results greater than or equal to 200 mg/dL meet the criteria for diagnosis of diabetes. Reference: Standards of Medical Care in Diabetes 2016, [place] Diabetes Association. Diabetes Care. 2016.39(Suppl 1). Performed By: #### 2 4323-8 #### [facility] CLIA [id number] [address] [place] [address] [place] Potassium [Moles/Vol] 4.1 mmol/L Normal 3.7-5.1 [facility] Comment on above: Order Comment: Speci men Type: BLOOD SPECIMEN Ordering Facility: [facility] Address: [facility] [place] [address] Performed By: #### 2 4323-8 #### [facility] CLIA [id number] [address] [place] [address] [place] Protein [Mass/Vol] 7.6 g/dL Normal 6.3-8.0 [facility] Comment on above: Order Comment: Speci men Type: BLOOD SPECIMEN Ordering Facility: [facility] Address: [address] [place] [address] Performed By: #### 2 4323-8 #### [facility] CLIA [id number] [address] [place], [place] [address] [place] Sodium [Moles/Vol] 139 mmol/L Normal 136-144 [facility] Comment on above: Order Comment: Speci men Type: BLOOD SPECIMEN Ordering Facility: [facility] Address: [facility] [place] [address] Performed By: #### 2 4323-8 #### [facility] CLIA [id number] [address] [place] [address] [place] Urea nitrogen [Mass/Vol] 11 mg/dL Normal 7-21 [facility] Comment on above: Order Comment: Speci men Type: BLOOD SPECIMEN Ordering Facility: [facility] Address: [facility] [place] [address] Performed By: #### 2 4323-8 #### [facility] CLIA [id number] [address] [place] [address] [facility] [place] T3Free SerPl-mCncon 02-19-20 22 Free T3 [Mass/Vol] 3.4 pg/mL Normal 2.3-4.1 [facility] Comment on above: Order Comment: Speci men Type: BLOOD SPECIMEN Ordering Facility: [facility] Address: [facility] [place] [address] Performed By: #### 3 051-0, TGAB #### [facility] CLIA [id number] [address] [place] [address] [place] THYROGLOBULIN ABon 2 Thyroglobulin Ab Qn [IU]/mL Normal <14.4 [facility] Comment on above: Order Comment: Speci men Type: BLOOD SPECIMEN Ordering Facility: [facility] Address: [facility] [place] [address] Performed By: #### 3 051-0, TGAB #### [facility] CLIA [id number] [address] [place] [address] [place] CNOVon 05-12-2021 CNOV Office Visit (UCWSTR) ---- COURTNEY HAMILTONTANY Wayne ([id number]) 1995 F Date Time Provider Department 05/12/21 9:45 AM JOSEPHINE SANCHEZ During your visit today, we recorded the following information about you: Temperature Pulse Respiration Blood pressure 97.2 degrees 102/minute 16/minute 122/78 Weight 65.9 kg Josephine Sanchez PA-C 05/12/2021 2:38 PM Signed 05/12/2021 Patient presents with: Sore Throat: GARNER, body aches, chills, fever x3 days SUBJECTIVE: This is a 26 year old that is here today for Complaint(s) of sore throat and GARNER x 3 days. Started with sore throat and GARNER and then developed fever/chills and body aches. Tmax 102. Now today having the sore throat, GARNER and nasal congestion. Has noticed some change in taste. Fever has resolved. Denies cough, SOB, wheezing, ear pain, vomiting, diarrhea. No difficulty swallowing. Patient is fully vaccinated for COVID and flu. PAST MEDICAL HISTORY Diagnosis Date - NEGATIVE MEDICAL HISTORY ALLERGIES Patient has no known allergies. MEDICATIONS Current Outpatient Medications Medication Sig - escitalopram oxalate (LEXAPRO) 20 mg tablet Take by mouth. - Qewgbtie-Jm-Dfr-Fe- FA ( VITAMIN) tab Take 1 tablet by mouth. (Patient not taking: Reported on 05/12/2021 ) No current facility-administer ed medications for this visit. SOCIAL HISTORY Social History Tobacco Use - Smoking status: Never Smoker - Smokeless tobacco: Never Used Substance Use Topics - Alcohol use: Yes Comment: occasionally but not while - Drug use: No REVIEW OF SYSTEMS See HPI OBJECTIVE: BP 122/78 Pulse 102 Temp 36.2 ?C (97.2 ?F) Resp 16 Wt 65.9 kg (145 lb 3.2 oz) LMP 04/10/2017 (Exact Date) SpO2 99% BMI 24.92 kg/m? APPEARANCE alert, in no acute distress, well-hydrated, well nourished. EYES PERRLA, conjunctiva and sclera normal. EARS External ears normal, canals clear. TMs normal GORDON NOSE/SINUS Nares normal. Septum midline. Mucosa normal. No drainage or sinus tenderness. THROAT + posterior pharyngeal erythema without exudate. Uvula midline NECK Supple, no adenopathy HEART RRR with normal S1 and S2 LUNG clear to auscultation, No wheezing, rhonchi, rales. ASSESSMENT/PLAN: 1. Sore throat - ICD9: 462, ICD10: J02.9 (primary diagnosis) - Alere Strep Test negative, no culture pending - The patient may also use warm salt water gargles, throat lozenges and/or OTC throat spray as needed and nasal saline gtts and suction prn. - The patient should follow up in 3-5 days if symptoms persist or worsen - Call back if drooling, increased temperature, symptoms of dehydration and/or still sick in one week - STREP A MOLECULAR (POC) - 2019 CORONAVIRUS 2. Suspected COVID-19 virus infection - ICD9: V01.79, ICD10: Z20.822 Supportive care with fluids/rest, OTC cough/cold meds prn Reviewed self isolation/quarnatin e instructions Note for school given pending test results Reviewed red flags and when to seek care sooner. - 2019 CORONAVIRUS The patient indicates understanding of these issues and agrees with the plan. Reviewed red flags and when to seek care sooner. PAMELA Macario PA-C 05/12/2021 10:02 AM Signed Beginning Home Isolation Isolation is used to separate people infected with SARS-CoV-2, the virus that causes COVID-19, from people who are not infected. People who are in isolation should stay home until it?s safe for them to be around others. In the home, anyone sick or infected should separate themselves from others by staying in a specific ?sick room? or area and using a separate bathroom (if available). Isolation or Quarantine: What's the difference? - Quarantine keeps someone who might have been exposed to the virus away from others. - Isolation keeps someone who is infected with the virus away from others, even in their home. Who needs to isolate People who have COVID-19 - People who have symptoms of COVID-19 and are able to recover at home - People who have no symptoms (are asymptomatic) but have tested positive for infection with SARS-CoV-2 Steps to take Stay home except to get medical care - Monitor your symptoms. - Stay in a separate room from other household members, if possible - Use a separate bathroom, if possible - Avoid contact with other members of the household and pets - Don?t share personal household items, like cups, towels, and utensils - Wear a mask when around other people, if you are able to When to seek emergency medical attention Look for emergency warning signs* for COVID-19. If someone is showing any of these signs, seek emergency medical care immediately: - Trouble breathing - Persistent pain or pressure in the chest - New confusion - Inability to wake or stay awake - Bluish lips or face *This list is not all possible symptoms. Please call your me (more content not included)... Normal [facility] Coronavirus 2019on 2 SARS-CoV-2 (COVID-19) RNA ANNIE+probe Ql (Unsp spec) UPPER RESPIRATORY TRACT SWAB Normal [facility] Comment on above: Performed By: #### C OVID #### [address] [address] SARS-CoV-2 (COVID-19) RNA ANNIE+probe Ql (Unsp spec) Negative for COVID19 (SARS CoV2) by RT-PCR or equivalent method. Normal Negative for COVID19 (SARS CoV2) by RT-PCR or equivalent method. [facility] Comment on above: Result Comment: This test was developed and its performance characteristics determined by [facility] [place]. This test has been authorized by FDA under an Emergency Use Authorization (EUA). This test has been validated in accordance with the FDA's Guidance Document Policy for Diagnostics Testing in Laboratories Certified to Perform High Complexity Testing under CLIA prior to Emergency use Authorization for Coronavirus Disease 2019 during the Public Health Emergency issued on June 17, 2019. Test performed by [facility], [facility] [place], [address] [place] [address]. Performed By: #### C OVID #### [facility] [address] [place] [address] BV/VAGINITIS PANEL DNA PROBE on 09-28-2019 LIUS: NOT DETECTED Normal NOT DETECTED [facility] Comment on above: Performed By: #### 1 4577 #### [facility] [address], [address] [place] [address] Linux Vmware Administrator: Pablo Lopez MD GARDNERELLA: NOT DETECTED Normal NOT DETECTED [facility] Comment on above: Performed By: #### 1 4577 #### [facility] [address] [place] [address] [employer] V[employer] Administrator: Pablo Lopez MD TRICHOMONAS: NOT DETECTED Normal NOT DETECTED [facility] Comment on above: Performed By: #### 1 4577 #### [facility] [address] [place] [address] [employer] V[employer] Administrator: Pablo Lopez MD .GFRon 02-04-2017 eGFR (non-black) mL/min/{1.73_m2} Normal [facility] ([place]) Comment on above: Result Comment: GFR Population mean for , Non- Americans Ages 20-29 = 116 mL/min/1.73 sq.m. Ages 30-39 = 107 mL/min/1.73 sq.m. Ages 40-49 = 99 mL/min/1.73 sq.m. Ages 50-59 = 93 mL/min/1.73 sq.m. Ages 60-69 = 85 mL/min/1.73 sq.m. Ages 70+ = 75 mL/min/1.73 sq.m.Chronic Kidney Disease: Less than 60 mL/min/1.73 square metersEnd Stage Renal Disease: Less than 15 mL/min/1.73 square meters Performed By: #### C MP, GFR, LIPID ####[address] [address] CMPon 02-04-2017 Alanine aminotransferase (ALT) 19 U/L Normal - [facility] ([place]) Comment on above: Performed By: #### C MP, GFR, LIPID ####[place] [address] Albumin/Globulin Ratio 1.3 {ratio} Normal 0.9-1.6 A [facility] ([place]) Comment on above: Performed By: #### C MP, GFR, LIPID ####[place] [address] Alk Phos 57 U/L Normal 33-118 [facility] ([place]) Comment on above: Performed By: #### C MP, GFR, LIPID ####[place] [address] Bili Total 0.6 mg/dL Normal 0.2-1.2 [facility] ([place]) Comment on above: Performed By: #### C MP, GFR, LIPID ####[place] [address] BUN/Creatinine Ratio 11.3 ratio Normal 10.0-22.0 [facility] ([place]) Comment on above: Performed By: #### C MP, GFR, LIPID ####[place] [address] Creatinine 0.62 mg/dL Normal 0.50-1.20 [facility] ([place]) Comment on above: Performed By: #### C MP, GFR, LIPID ####[place] [address] Globulin 3.1 G/dL Normal 1.5-3.8 [facility] ([place] Comment on above: Performed By: #### C MP, GFR, LIPID ####[place] [address] Protein 7.1 G/dL Normal 6.0-8.5 [facility] ([place]) Comment on above: Performed By: #### C MP, GFR, LIPID ####[place] [address] Albumin 4.0 G/dL Normal 3.2-4.8 [facility] ([place]) Comment on above: Performed By: #### C MP, GFR, LIPID ####[place] [address] Aspartate aminotransferase (AST) 14 U/L Normal 8-34 [facility] ([place] Comment on above: Performed By: #### C MP, GFR, LIPID ####[place] [address] Calcium 9.4 mg/dL Normal 8.4-10.1 [facility] ([place]) Comment on above: Performed By: #### C MP, GFR, LIPID ####[place] [address] Chloride 105 mmol/L Normal 98-110 [facility] ([place] Comment on above: Performed By: #### C MP, GFR, LIPID ####[place] [address] CO2 25 mmol/L Normal 22-32 [facility] ([place]) Comment on above: Performed By: #### C MP, GFR, LIPID ####[place] [address] Electrolyte Balance 7.0 mEq/L Normal 4.0-15.0 [facility] ([place]) Comment on above: Performed By: #### C MP, GFR, LIPID ####[place] [address] Glucose mass conc 71 mg/dL Normal 70-110 [facility] ([place]) Comment on above: Performed By: #### C MP, GFR, LIPID ####[place] [address] Potassium molar conc 4.2 mmol/L Normal 3.5-5.0 [facility] ([place]) Comment on above: Performed By: #### C MP, GFR, LIPID ####[place] [address] Sodium 137 mmol/L Normal 136-145 [facility] ([place]) Comment on above: Performed By: #### C MP, GFR, LIPID ####[place] [address] Urea nitrogen 7.0 mg/dL Low 8.0-22.0 [facility] ([place]) Comment on above: Performed By: #### C MP, GFR, LIPID ####[place] [address] LIPIDon 02-04-2017 Cholesterol 202 mg/dL High 50-199 [facility] ([place]) Comment on above: Result Comment: Chol esterol Reference Interval:Less than 200 [id number] Borderline high nhjx806 and above High risk Performed By: #### C MP, GFR, LIPID ####[facility] [place] [address] HDL Cholesterol 61 mg/dL High 40-59 [facility] ([place]) Comment on above: Result Comment: HDL Reference Interval:Less than 40 Low - high risk60 or above Optimal/lowers risk Performed By: #### C MP, GFR, LIPID ####[facility] [place] [address] LDL Cholesterol 118 mg/dL Normal 0-129 [facility] ([place]) Comment on above: Result Comment: LDL is a calculated result and requires a 12-hr fast.LDL Reference Interval:Less than 100 Agkzycs555-105 Near or above [id number] Borderline high [id number] High pewn029 and above Very high risk Performed By: #### C MP, GFR, LIPID ####[place] [address] [place] [address] Triglyceride 114 mg/dL Normal 3-149 [facility] ([place]) Comment on above: Result Comment: Trig lyceride Reference Interval:Less than 150 Rbujop413-000 Borderline high huga308-195 High jslc149 or higher Very high risk Performed By: #### C MP, GFR, LIPID ####[facility] [place] [address] Vital Signs Date Time Vital Sign Value Performing Clinician Salvatore solis 12-08-2024 09:140400 Body height 162.56 cm Qoof Work Phone: [facility] 12-08-2024 09:14-0400 Body mass index (BMI) [Ratio] 19.7 kg/m2 [employer] Work Phone: [facility] 12-08-2024 09:14040 Body weight 52.16 kg [employer] Work Phone: [facility] 12-08-2024 09:14-0400 Diastolic blood pressure 87 mm[Hg] [employer] Work Phone: [facility] 12-08-2024 09:14-0400 Systolic blood pressure 128 mm[Hg] [employer]oof Work Phone: [facility] 01-26-2023 09:19-0400 Body height 162.56 cm PA-C Robel Wayland PA Work Phone: [facility] 01-26-2023 09:15-0400 Body mass index (BMI) [Ratio] 19.5 kg/m2 PA-C Robel Wayland PA Work Phone: [facility] 01-26-2023 09:15-0400 Body weight 51.82 kg PA-C Robel Wayland PA Work Phone: [facility] 01-26-2023 09:15-0400 Diastolic blood pressure 76 mm[Hg] PA-C Robel Wayland PA Work Phone: [facility] 01-26-2023 09:15-0400 Systolic blood pressure 122 mm[Hg] PA-C Robel Wayland PA Work Phone: [facility] 10-19-2022 08:16-0400 Body height 162.56 cm PA-C Robel Wayland PA Work Phone: [facility] 10-19-2022 08:15-0400 Body mass index (BMI) [Ratio] 20.1 kg/m2 PA-C Robel Wayland PA Work Phone: [facility] 10-19-2022 08:15-0400 Body weight 53.18 kg PA-C Robel Wayland PA Work Phone: [facility] 10-19-2022 08:15-0400 Diastolic blood pressure 90 mm[Hg] PA-C Robel Wayland PA Work Phone: [facility] 10-19-2022 08:15-0400 Systolic blood pressure 136 mm[Hg] PA-C Robel Wayland PA Work Phone: [facility] Encounters Encounter Date Encounter Type Care Provider Facility Start: 12-08-2024 End: 12-08-2024 ambulatory Robel Wayland PA-C Work Phone: [facility] Start: 12-08-2024 End: 12-08-2024 Patient encounter procedure Lucero Bacilio [facility] Work Phone: Start: 07-03-2024 End: 07-03-2024 ambulatory ROBEL DRAKE [facility] Start: 07-30-2023 ambulatory LAYNE DOMINGUEZ [facility] Start: 06-17-2023 ambulatory UNLTRENA LOVELL [facility] Start: 03-20-2023 End: 03-20-2023 ambulatory DONAVAN [facility] Start: 01-26-2023 End: 01-26-2023 ambulatory PA-C Robel Fund Recs PA Work Phone: [facility] Work Phone: Start: 01-26-2023 End: 01-26-2023 Patient encounter procedure PA-C Robel Wayland PA Work Phone: [facility] Work Phone: Start: 01-26-2023 End: 01-26-2023 Patient encounter procedure PA-C Robel Wayland PA Work Phone: [facility] Work Phone: Start: 11-24-2022 End: 11-24-2022 ambulatory [facility] Start: 10-19-2022 End: 10-19-2022 ambulatory Mirella Lamar Facility:[facility] Start: 10-19-2022 End: 10-19-2022 ambulatory PA-C Robel Wayland PA Work Phone: [facility] Work Phone: Start: 10-19-2022 End: 10-19-2022 Patient encounter procedure PA-C Robel Drake PA Work Phone: [facility] Work Phone: Start: 09-26-2022 End: 09-26-2022 ambulatory Mirella Lamar [facility] Work Phone: Start: 09-26-2022 End: 09-26-2022 Patient encounter procedure [facility] Start: 05-05-2022 Encounter for gynecological examination (general) (routine) with abnormal findings Mirella Lamar [facility] Start: 05-05-2022 End: 05-05-2022 ambulatory Mirella Lamar [place] Start: 05-12-2021 End: 05-12-2021 ambulatory ROBEL DRAKE Facility:[facility] Procedures Date Procedure Procedure Detail Performing Clinician H/O: surgery Status post bilateral salpin gectomy Plan of Treatment Date Care Activity Detail Author Start: 01-26-2023 Patient referral [facility] Work Phone: Dehydroepiandrostero ne sulfate (DHEA-S) [Mass/volume] in Serum or Plasma [facility] Patient referral [facility] Work Phone: Testosterone Free [M ass/volume] in Serum or Plasma [facility] US Pelvis transvaginal [facility] Immunizations Immunization Date Immunization Notes Care Provider Fa gerardoty 05-22-2019 tetanus toxoid, redu alexandra diphtheria toxoid, and acellular pertussis vaccine, adsorbed [facility] 10-19-2017 tetanus toxoid, redu alexandra diphtheria toxoid, and acellular pertussis vaccine, adsorbed [facility] Payers Date Payer Category Payer Unknown [id number] 2022 Self-pay [id number] 2021 Medicaid [id number] 2020 Unknown [id number] 2012 Unknown [facility] *DO NOT USE* [id number] 1995 Unknown [id number] 1996 Unknown [id number] 1996 Unknown [id number] 1996 Unknown [id number] 1995 Unknown [id number] Unknown [id number] Unknown [employer] [facility] *DO NOT USE* [id number] Unknown [id number] Unknown [id number] Unknown [id number] Unknown [id number] Social History Date Type Detail Facility Start: 05-05-2022 End: 01-26-2023 Tobacco smoking status ORIS Unknown if ever smoked [facility] Start: 08-02-2019 None [facility] Start: 12-10-2018 With Family [facility] Start: 09-07-2018 Non-smoker [facility] Start: 1995 Sex Assigned At Female [facility] Start: 01-26-2023 Tobacco smoking stat us ORIS Never smoked tobacco (finding) [facility] Clinical Note 01-26-2023 Note Date & Type Note Facility 01-26-2023 Note [facility] Pap Smear Specimen Adequacy January 26, 2023 12:28pm Comment . Satisfactory for evaluation. Endocervical and/or squamous metaplasticcells (endocervical component) are present. Comment on above: Satisfactory for mey luation. Endocervical and/or squamous metaplasticcells (endocervical component) are present. Progress note 05-12-2021 Note Date & Type Note Facility 01-24-2022 Note HNO ID: [id number] Author: Josephine Sanchez PA-C Service: ? Author Type: Physician Cell Biologist Type: Progress Notes Filed: 05/12/2021 2:38 PM Note Text: 05/12/2021 Patient presents with: Sore Throat: GARNER, body aches, chills, fever x3 days SUBJECTIVE: This is a 26 year old that is here today for Complaint(s) of sore throat and GARNER x 3 days. Started with sore throat and GARNER and then developed fever/chills and body aches. Tmax 102. Now today having the sore throat, GARNER and nasal congestion. Has noticed some change in taste. Fever has resolved. Denies cough, SOB, wheezing, ear pain, vomiting, diarrhea. No difficulty swallowing. Patient is fully vaccinated for COVID and flu. PAST MEDICAL HISTORY Diagnosis Date - NEGATIVE MEDICAL HISTORY ALLERGIES Patient has no known allergies. MEDICATIONS Current Outpatient Medications Medication Sig - escitalopram oxalate (LEXAPRO) 20 mg tablet Take by mouth. - Ufabsuyr-Ud-Ufb-Fe-FA ( VITAMIN) tab Take 1 tablet by mouth. (Patient not taking: Reported on 05/12/2021 ) No current facility-administered medications for this visit. SOCIAL HISTORY Social History Tobacco Use - Smoking status: Never Smoker - Smokeless tobacco: Never Used Substance Use Topics - Alcohol use: Yes Comment: occasionally but not while - Drug use: No REVIEW OF SYSTEMS See HPI OBJECTIVE: BP 122/78 Pulse 102 Temp 36.2 ?C (97.2 ?F) Resp 16 Wt 65.9 kg (145 lb 3.2 oz) LMP 04/10/2017 (Exact Date) SpO2 99% BMI 24.92 kg/m? APPEARANCE alert, in no acute distress, well-hydrated, well nourished. EYES PERRLA, conjunctiva and sclera normal. EARS External ears normal, canals clear. TMs normal GORDON NOSE/SINUS Nares normal. Septum midline. Mucosa normal. No drainage or sinus tenderness. THROAT + posterior pharyngeal erythema without exudate. Uvula midline NECK Supple, no adenopathy HEART RRR with normal S1 and S2 LUNG clear to auscultation, No wheezing, rhonchi, rales. ASSESSMENT/PLAN: 1. Sore throat - ICD9: 462, ICD10: J02.9 (primary diagnosis) - Alere Strep Test negative, no culture pending - The patient may also use warm salt water gargles, throat lozenges and/or OTC throat spray as needed and nasal saline gtts and suction prn. - The patient should follow up in 3-5 days if symptoms persist or worsen - Call back if drooling, increased temperature, symptoms of dehydration and/or still sick in one week - STREP A MOLECULAR (POC) - 2019 CORONAVIRUS 2. Suspected COVID-19 virus infection - ICD9: V01.79, ICD10: Z20.822 Supportive care with fluids/rest, OTC cough/cold meds prn Reviewed self isolation/quarnatine instructions Note for school given pending test results Reviewed red flags and when to seek care sooner. - 2019 CORONAVIRUS The patient indicates understanding of these issues and agrees with the plan. Reviewed red flags and when to seek care sooner. 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 acute Midline cystocele acute [facility] Work Phone: Evaluation note Note Date & Type Note Facility Evaluation note Diagnosis Onset Date Resolution Depression acute December 08, 025 9:06am Pelvic pain acute December 08, 2024 9:06am [facility] Work Phone: Reason for referral (narrative) Note Date & Type Note Facility Reason for referral (narrative) No reason for referral information available [facility] Work Phone: Summary Purpose Family History Relationship Condition Age at Onset Recorded Date/T sonia Not Specified Hypertension Unknown sister Antiphospholipid syndrome Unknown mother Diabetes mellitus Unknown Advance Directives Advance Directive Response Recorded Date/ Time Living Will No May 27 10:28am Power of Wedding Day Coordinator No May 27, 2021 10:28am Chief Complaint and Reason for Visit Chief Complaint EORDER Chief Complaint EORDER 4 wk fu NO E ORDERS YET Reason for Visit Secondary oligomenor ilir Chief Complaint 4 wk fu NO E ORDERS YET Vaginal lumps, Pap ok MH Reason for Visit Secondary oligomenor ilir HGSIL (high grade squamous intraepithelial lesion) on Pap smear of cervix Midline cystocele Chief Complaint Admit Date PAIN W INTERCOURSE December 08, 2024 9: 06am Reason for Visit Admit Date Depression December 08, 2024 9: 06am Pelvic pain December 08, 2024 9: 06am Additional Source Comments INFORMATION SOURCE (unrecogn ized section and content) DATE CREATED AUTHOR 10/12/2017 [facility] ([place]) DATE CREATED AUTHOR AUTHOR'S ORGANIZ ATION 09/28/2019 [facility] DATE CREATED AUTHOR AUTHOR'S ORGANIZ ATION 02/20/2022 [facility] DATE CREATED AUTHOR AUTHOR'S ORGANIZ ATION 10/29/2022 [facility] DATE CREATED AUTHOR AUTHOR'S ORGANIZ ATION 08/01/2023 [facility] DATE CREATED AUTHOR AUTHOR'S ORGANIZ ATION 07/05/2024 [facility] Care Teams (unrecognized sec tion and content) Team Status: Active Member Role Status Dates [facility] PA, PA-C Family Provider Active [facility] PA, PA-C Primary Care Provider Active Team Status: Inactive Member Role Status Dates [facility] PA, PA-C Primary Care Provider Active Dr. iMrella Lamar MD Attending Provider, Referr ing Provider Active Team Status: Inactive Member Role Status Dates [facility] PA, PA-C Primary Care Provider, Referri ng Provider Active Dr. Mirella Lamar MD Attending Provider Active Team Status: Inactive Member Role Status Dates [facility] PA, PA-C Primary Care Provider, Referri ng Provider Active Rosa Brewer TAG MARKER, TAG MARKER-C Attending Provider Active Team Status: Inactive Member Role Status Dates [facility] PA, PA-C Primary Care Provider Active Rosa Brewer TAG MARKER, TAG MARKER-C Attending Provider, Referring Provider Active Team Status: Active Member Role/Relationship Status Dates [facility] PA, PA-C Family Provider Active [facility] PA, PA-C Primary Care Provider Active Team Status: Inactive Member Role/Relationship Status Dates [facility] PA, PA-C Primary Care Provider Active Start: December 08, 2024 End: December 08, 2024 Robel MORENO PA-C Referring Provider Active Start: December 08, 2024 End: December 08, 2024 Lucero Ribera CNM Attending Provider Active S tart: December 08, 2024 End: December 08, 2024 Goals (unrecognized section and content) Goals may be documented in a n alternate sectionGoals may be documented in an alternate sectionGoals may be documented in an alternate sectionGoals may be documented in an alternate section FOR RECORDS PERTAINING TO PATIENTS WHO ARE OR HAVE BEEN ENROLLED IN A CHEMICAL DEPENDENCY/SUBSTANCEABUSE PROGRAM, SOME INFORMATION MAY BE OMITTED. This clinical summary was aggregated from multiple sources. Caution should be exercised in using it in the provision of clinical care. This summary normalizes information from multiple sources, and as a consequence, information in this document may materially change the coding, format and clinical context of patient data. In addition, data may be omitted in some cases. CLINICAL DECISIONS SHOULD BE BASED ON THE PRIMARY CLINICAL RECORDS. [employer] provides no warranty or guarantee of the accuracy or completeness of information in this document.
[2024-12-11 20:08] LABS: Chlamydia By Nucleic Acid AMP Negative (Negative); Gonococcus By Nucleic Acid AMP Negative (Negative)
== END | disposition home or self-care (01) ==
LOC: LABSPEC 10:40
PROVIDERS: PCP Family Medicine; Referring Provider Advanced Practice Midwife; Visit Provider Advanced Practice Midwife
DX: R10.2 Pelvic and perineal pain (principal); N89.8 Other specified noninflammatory disorders of vagina; Z12.4 Encounter for screening for malignant neoplasm of cervix
CPT/HCPCS: 87070; 87205; 87491; 87591; 88175; G0145

== ENCOUNTER → 2024-12-15 | Outpatient (CLI) | payer BC, SELFPAY ==
--- NOTE | 2024-12-15 17:06 | US_ITS ---
PROCEDURE: TRANSVAGINAL NON- 12/15/2024 REASON FOR EXAM: PELVIC PAIN TECHNIQUE: Procedure Code: USTVAG Modality: US Procedure: TRANSVAGINAL NON- COMPARISON: None FINDINGS: LMP: November 21, 2024. Measurements: Uterus: 8.9 cm x 5.6 cm x 4.8 cm with a volume of 125.08 mL Endometrial Thickness: 8.9 mm. Right Ovary: 2.9 cm x 1.5 cm x 1.4 cm with a volume of 3.21 mL. Left Ovary: 2.7 cm x 2.6 cm x 2.6 cm with a volume of 9.44 mL. Uterus: Normal size, myometrial echotexture, and contour. Endometrium: Unremarkable. Right ovary: Normal size and echotexture. Left ovary: Normal size and echotexture. Other: No large pelvic mass identified. US/Transvaginal Non- IMPRESSION: NORMAL transvaginal PELVIC ULTRASOUND. Reading Location: [place] [id number]
== END | disposition home or self-care (01) ==
LOC: US 17:05
PROVIDERS: PCP Family Medicine; Referring Provider Advanced Practice Midwife; Visit Provider Advanced Practice Midwife
DX: R10.2 Pelvic and perineal pain (principal)
CPT/HCPCS: 76830